=== PATIENT | male | born 1970 | race Caucasian/White ===

== ENCOUNTER 2024-02-20 16:02 | Outpatient (REF) | payer BC, SELFPAY ==
[2024-02-20 18:27] LABS: Alanine Aminotransferase 59 U/L (0-40); Albumin Level 3.6 g/dL (3.5-5.0); Alkaline Phosphatase 134 U/L (39-117); Anion Gap 12 (12-20); Aspartate Amino Transferase 62 U/L (5-37); Blood Urea Nitrogen 18 mg/dL (9-16); Calcium 9.4 mg/dL (8.4-10.2); Carbon Dioxide 23 mmol/L (22-29); Chloride 107 mmol/L (96-108); Cholesterol 123 mg/dL (<200); Estimated Glomerular Filt Rate > 60; Glucose Random 98 mg/dL (60-115); HDL Cholesterol 32 mg/dL (>40); LDL Cholesterol Calculated 80 mg/dL (<100); Potassium 4.3 mmol/L (3.3-5.1); Sodium 138 mmol/L (135-145); Total Protein 7.6 g/dL (6.5-8.0); Triglycerides 57 mg/dL (<150)
[2024-02-20 18:47] LABS: TSH reflex Free T4 3.66 uIU/mL (0.32-4.0)
[2024-02-21 08:20] LABS: HIV AB/AG Nonreactive (Nonreactive); HIV Num 1 0.05 S/CO (0.00-0.99); ~HepC Num1 0.31 S/CO (0.00-0.79); ~Hepatitis C Antibody Nonreactive (Nonreactive)
== END 2024-02-20 16:03 | disposition home or self-care (01) ==
LOC: HO.CHCLDS 16:02
PROVIDERS: Visit Provider Internal Medicine
DX: I10 Essential (primary) hypertension (principal)
CPT/HCPCS: 36415; 80053; 80061; 84443; 86803; 87389

== ENCOUNTER 2024-05-29 13:51 | Outpatient (AMB) | payer BC, SELFPAY ==
--- NOTE | 2024-05-29 14:10 | A.OFFVIS_ITS ---
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 Per prior discharge summary from [facility] in 2023, it seems that he has a history of alcohol excess, congestive heart failure with reduced ejection fraction and stated ejection fraction of 20-30%. Also with atrial fibrillation but noncompliant with Eliquis. He states that he drinks a six-pack once a week or so. Denies any drug use. With regard to other medications for cardiomyopathy, unclear what he actually takes as he states he takes them intermittently. He has been referred for a new patient evaluation. Patient states that he generally feels well. With activity, he may get short of breath. Nonspecific weakness at times. No clear-cut angina. [facility] Medical History (Updated 05/29/24 @ 14:49 by Gavin Akers MD) Atrial fibrillation with rapid ventricular response Cardiomyopathy Family History (Updated 05/29/24 @ 14:34 by Gavin Akers MD) Father No problems noted. Mother No problems noted. Social History (Updated 05/29/24 @ 14:33 by Gavin Akers MD) Alcohol intake: current Comment: 6 pack/one day/week Patient Tobacco Use Status: Never used Tobacco Review of Systems Const Denies chills, Denies fatigue, Denies fever(s), Denies frequent falls, Denies weakness, Denies weight gain and Denies weight loss ENT Denies dizziness Card Denies chest pain, Denies leg edema, Denies lightheadedness, Denies palpitations, Reports dyspnea, Reports dyspnea on exertion and Denies orthopnea Resp Denies cough, Reports dyspnea and Reports dyspnea on exertion GI Denies bloating and Denies change in bowel habits Musc Denies muscle weakness, Denies numbness and Denies tingling Neuro Denies dizziness, Denies frequent falls, Denies numbness, Denies tingling and Denies weakness Endo Denies fatigue and Denies palpitations Physical Exam Vital Signs: Last Vital Signs Pulse 149 H 05/29/24 14:13 BP 140/90 H 05/29/24 14:13 BMI result Body Mass Index 29.2 Const General: comfortable and no acute distress Orientation/consciousness: patient oriented x3 HEENT Other: Unremarkable Head: Yes normal to inspection Neck Neck: Yes normal visual inspection Chest Chest palpation & inspection: normal inspection of the chest Resp Auscultation: clear to auscultation bilaterally Cardio Palpation: normal PMI Heart sounds: S1 normal heart sound present, S2 normal heart sound present, no gallops, no murmurs and no rubs GI Palpation (GI): Soft to palpation Back/Spine/Pelvis Other: unremarkable Skin General skin exam: no rashes or lesions noted Neuro General: patient oriented x3 Extrem General: Yes normal to inspection Psych Mental Status: mental status grossly normal Office Procedures EKG Details: EKG with atrial fibrillation at a rate of 149/Min; rightward axis 08187-[id number], Complete Assessment & Plan Assessment & Plan (1) Atrial fibrillation with rapid ventricular response: Code(s): I48.91 - Unspecified atrial fibrillation Category: Medical Plan: Listed to be on metoprolol ER 100 mg daily with Eliamado. However, does not seem that he takes these every day. Clinically, no overt symptoms but high likelihood of decompensation. Recommend ER evaluation. May try intravenous beta-blockers +/-digoxin. Candidacy for BRIE/cardioversion to be decided-mainly due to question of compliance. (2) Cardiomyopathy: Code(s): I42.9 - Cardiomyopathy, unspecified Category: Medical Plan: In the [facility] echocardiogram, LVEF is 20-30%. No overt heart failure symptoms or signs. For meds, on metoprolol, Entresto, Farxiga. Again unclear compliance. Plan Referred to ER for heart rate management. Coding Level of Care Code New Pt Level 5 (17895) Complex EM visit Add On G2211 Diagnoses Atrial fibrillation with rapid ventricular response I48.91 Cardiomyopathy I42.9 CPT Codes EKG - CPT: 90083-[id number], Complete ([id number])
--- OUTSIDE RECORDS SUMMARY | 2024-05-29 14:11 | XMS_ITS | Encounter Summary ---
Author Organization [facility] [facility] [employer] Address [address] [facility] 7 [place] [address] Care Team Providers Care Doffer Name Role Phone Dinesh Hernandez MD Primary Care Prov ider Reason for Visit * Reason Onset Date Comments Chart Prep 05/21/2024 Encounter Details Date Type Department Care Team ([facility] st Contact Info) Description 05/21/2024 Telephone [facility] MED & PEDS [address] [place], [place] [phone] Dinesh Hernandez MD [address] [place] [address] Chart Prep Social History Tobacco Use Types Packs/Day Years Used Date Smoking Tobacco: Never Smokeless Tobacco: Never Alcohol Use Standard Drinks/Week Comments Not Currently 0 (1 standard drink = 0.6 oz pur e alcohol) Depression Answer Date Recorded Patient Health Questionnaire-9 Score 0 2024 Patient Health Questionnaire-9 Score 0 2024 Last PHQ-9: Questionnaire Data Not on file 1 05/19/2023 Housing Stability Answer Date Recorded What is your housing situation today? I have kulwant nassar [address] you li ve. Do you have problems with any of the following? None of the above 2024 Food Insecurity Answer Date Recorded Within the past 12 months, y ou worried that your food would run out before you got money to buy more: Never True 2024 Within the past 12 months,th e food you bought just didn't last and you didn't have enough money to get more: Never True 12/2023 Transportation Answer Date Recorded In the past 12 months, has l ack of transportation kept you from medical appts, meetings, work or from getting things needed for daily living? No 2024 Utilities Answer Date Recorded In the past 12 months, has t he electric, gas, oil or water company threatened to shut off services in your home? No 2024 Depression Answer Date Recorded Patient Health Questionnaire-2 Score 0 2024 Internet Access Answer Date Recorded Internet Access Q1 Yes 2024 Internet Access Q2 Not on file 2024 Sex and Gender Information Value Date Recorded Sex Assigned at Male 02/07/2022 10:18 AM EDT Legal Sex Male 10:18 AM EDT Gender Identity Male 02/07/2022 10:18 AM EDT Sexual Orientation Straight 02/07/2022 10 :18 AM EDT documented as of this encounter Miscellaneous Notes * Telephone Encounter - Hoa Dukes [place] - 05/21/2024 4:24 PM EST Chart Prep Labs: done Images: not applicable Vaccines due: yes Referrals: n/a Screenings: colonoscopy Overdue care gaps: Oral Health, disability screening documented in this encounter Plan of Treatment Not on file documented as of this encounter Visit Diagnoses Not on filedocumented in this encounter Additional Health Concerns Assessment Noted Time PHQ-9 Depression Total Score: 0 03/18/20 9:28 AM EST documented as of this encounter Care Teams Doffer Relationship Specialty Start Date End Date Dinesh Hernandez MD [address] [place] [phone] PCP - General Internal Medicine 01/23/24 documented as of this encounter
--- OUTSIDE RECORDS SUMMARY | 2024-05-29 14:11 | XMS_ITS | Encounter Summary ---
Author Organization [employer] Address [address] [facility] 7 [place] [address] Care Team Providers Care Messenger Copy Name Role Phone Dinesh Hernandez MD Primary Care Prov ider Reason for Visit * Reason Onset Date Comments No Show 05/22/2024 Encounter Details Date Type Department Care Team ([facility] st Contact Info) Description 05/22/2024 Telephone [facility] CH[facility] MED & PEDS [address] [place], [place] [phone] Dinesh Hernandez MD [address] [place] [address] No Show Social History Tobacco Use Types Packs/Day Years [...] encounter Miscellaneous Notes * Telephone Encounter - Miguelina Urena - 05/22/2024 3:31 PM EST No Show 05/22/24 for fu bp documented in this encounter Plan of Treatment Not on file documented as of this encounter Visit Diagnoses Not on filedocumented in this encounter Additional Health Concerns Assessment Noted Time PHQ-9 Depression Total Score: 0 03/18/20 9:28 AM EST documented as of this encounter Care Teams Messenger Copy Relationship Specialty Start Date End Date Dinesh Hernandez MD [address] [place] [phone] PCP - General Internal Medicine 01/23/24 documented as of this encounter
--- OUTSIDE RECORDS SUMMARY | 2024-05-29 14:11 | XMS_ITS | Clinical Summary ---
Author Organization [employer] Address [address] [facility] [address] [place] [address] Care Team Providers Care Electronic Technician Name Role Phone Dinesh Hernandez MD Primary Care Prov ider Allergies Active Allergy Reactions Criticality Noted Date Comments Shrimp Flavor Agent (Non-Screening) Rash Low 01/31/2024 Medications Blood Pressure kit 1 kit Once per day. 1 kit 02/01/2024 Active apixaban (Eliquis) 5 MG tablet Take 1 tablet (5 mg) by mouth 2 times daily. 60 tablet 3 02/01/2024 Active dapagliflozin (Farxiga) 10 MGIndications:C hronic systolic congestive heart failure (CMS/HCC) Take 1 tablet (10 mg) by mouth Once per day. 30 tablet 11 02/01/2024 5 Active furosemide (Lasix) 40 MG tablet Take 1 tablet (40 mg) by mouth Once per day. 90 tablet 3 02/20/2024 5 Active metoprolol succinate XL (Toprol XL) 100 MG 24 hr tablet Take 0.5 tablets (50 mg) by mouth Once per day. Do not crush or chew. 15 tablet 11 02/20/2024 5 Active sacubitril-vals teresa (Entresto) 49-51 MG tabletIndicatio ns:Chronic systolic congestive heart failure (CMS/HCC) Take 1 tablet by mouth 2 times daily. 60 tablet 11 2024 5 Active Active Problems Problem Noted Date Diagnosed Date Encounter for adult wellness visit 2024 Assessment & Plan (2024 12:48 PM EST): Plan Dietary counseling Alcohol use counseling Referral to vision and dentist Follow up on manager of customer billing and neurologist Covid and Pneumococcal vaccine Encounter for immunization 2024 Dietary counseling 2024 Assessment & Plan (2024 12:26 PM EST): Eat 3 meals a day, especially breakfast Eat healthy and focus on healthyfood choices daily fruits, vegetables, grains, low fat milk, low carbohydrate and fat Avoid salt intake including cold cuts Maintain healthy weight as this will lower your risk for many health problems. Stop taking alcohol Permanent atrial fibrillation 02/02/2024 Assessment & Plan (02/02/2024 12:09 AM EDT): Pateint was not taking eliquis, reviewed risk, will send renewal to [facility] pharm Alcohol use disorder 02/02/2024 Tremors of nervous system 02/02/2024 Assessment & Plan (02/02/2024 12:00 AM EDT): Will refer to neurology Chronic systolic congestive heart failure 2023 Assessment & Plan (2024 12:35 PM EST): Bilateral lower extremities pitting edema with discoloration Dry cough when lying down Plan Increase dose of sacubitril-Valsartan 49-51 Follow up appointment with manager of customer billing Dietary counseling Patient counseling on CHF Assessment & Plan (02/20/2024 6:40 PM EST): Lower extremity edema, clear to auscultation bilaterally, no shortness of breath, will increase furosemide to 40mg, follow up with cardiology, er precautions discussed Assessment & Plan (02/02/2024 12:05 AM EDT): Renewed medication, will refer to cardiology, ef 20-30%, needs medical optimization may eventually need ICD Encounter for medical examination to establish c are 01/31/2024 Assessment & Plan (01/31/2024 12:57 AM EDT): Last pcp visit 3 years ago No recent er visit Hospitalization: - Pmhx: htn Psh: - All:shrimps Meds:- Primary hypertension 01/31/2024 Assessment & Plan (02/20/2024 6:39 PM EST): Uncontrolled, will increase furosemide to 40mg, he is also not taking metoprolol 100mg, refers is getting dizzy, will decrease dose to 50mg, follow up in 1 month Assessment & Plan (02/01/2024 11:56 PM EDT): He is not taking his medications, he should be on entresto, metoprolol and furosemide, reviewed importance of treatment adherance Assessment & Plan (01/31/2024 1:02 AM EDT): Patient is a poor historian, upon chart review he was taking entresto, metoprolol, apixaban, chlorthalidone, farxiga, furosemide. He is currently off any medication for more than 2 months, has not followed with manager of customer billing, not clear why he is on those medication, will request er/hospital discharge, apperently they were started back on august Encounters Date Type Department Care Team Description 05/22/2024 Telephone [facility] MED & PEDS [address] [place] [phone] Dinesh Hernandez MD No Show 05/21/2024 Telephone [facility] MED & PEDS [address] [place] [address] Dinesh Hernandez MD Chart Prep 03/26/2024 Telephone [facility] MED & PEDS [address] [place] [address] Dinesh Hernandez MD Appointment Request 2024 9:00 AM EST Office Visit [facility] MED & PEDS [address] [place] [address] Dinesh Hernandez MD Encounter for adult wellness visit (Primary Dx); Encounter for immunization; Chronic systolic congestive heart failure ([facility]/HCC); Dietary counseling 2024 Travel 03/04/2024 Patient Outreach [facility] MED & PEDS [address] [place] [address] Dinesh Hernandez MD Pre-visit Planning (SDOH unable to reach LVM) 02/27/2024 Telephone [facility] [address] [place], [place] [phone] Dinesh Hernandez MD from Last 3 Months Immunizations Name Administration Dates Next Due Pfizer Covid-19 Vaccine 12+ 2024 Pneumococcal Conjugate PCV 20 2024 Family History Medical History Relation Name Comments Hypertension Father Hypertension Mother Cancer Neg Hx Relation Name Status Comments Father Mother Social History Tobacco Use Types Packs/Day Years Used Date Smoking Tobacco: Never Smokeless Tobacco: Never Tobacco Cessation:Counseling Given: Not Answered Alcohol Use Standard Drinks/Week Comments Not Currently [...] Orientation Straight 02/07/2022 10 :18 AM EDT Last Filed Vital Signs Vital Sign Reading Time Taken Comments Blood Pressure 152/84 2024 9:27 AM EST Pulse 88 2024 9:27 AM EST Temperature 37.1 ??C (98.7 ??F) 2024 9:27 AM ES T Respiratory Rate 20 2024 9:27 AM EST Oxygen Saturation 96% 02/01/2024 3:20 PM EDT Inhaled Oxygen Concentration - - Weight 90.7 kg (200 lb) 2024 9:27 AM EST Height 182.9 cm (6') 2024 9:27 AM EST Body Mass Index 27.12 2024 9:27 AM EST Plan of Treatment Health Maintenance Due Date Last Done Comments CT Colonography 1970 Colonoscopy 1970 Colorectal Cancer Screening 1970 FIT DNA/Cologuard 1970 FIT 1970 FOBT 1970 Sigmoidoscopy 1970 DTaP/Tdap/Td Vaccines (1 - Tdap) 1989 Hepatitis B Vaccines (1 of 3 - 19+ 3-dose series) 1989 Zoster Vaccines (1 of 2) 2020 Influenza Vaccine (#1) 2023 Alcohol/Substance Use Screening 2025 2024 Depression Screening 2025 2024, 03/18/20 24 SDOH Screening 2025 2024 Tobacco Screening 2025 2024 Lipid Panel 02/19/2029 02/20/2024 RSV Patients and Patients Aged 60 years or older (1 - 1-dose 75+ series) 2045 HIV Screening Completed 02/20/2024 Hepatitis C Screening Completed 02/20/2024 COVID-19 Vaccine Completed 2024, , 08/26/2020, Additional history exists Pneumococcal Vaccine: 50+ Years Completed 2024 HIB Vaccines Aged Out No longer eligi ble based on patient's age to complete this topic HPV Vaccines Aged Out No longer eligi ble based on patient's age to complete this topic Hepatitis A Vaccines Aged Out No long er eligible based on patient's age to complete this topic IPV Vaccines Aged Out No longer eligi ble based on patient's age to complete this topic Meningococcal Vaccine Aged Out No divya matt eligible based on patient's age to complete this topic RSV under 20 months Aged Out No longe r eligible based on patient's age to complete this topic Rotavirus Vaccines Aged Out No longer eligible based on patient's age to complete this topic Procedures Procedure Name Priority Date/Time Associated Diagnosis Comments AMB REFERRAL TO NEUROLOGY Routine 03/27/2024 Tremors of nervous system HEPATITIS C AB W/REFL TO HCV RNA, QN, PCR Routine 02/20/2024 4:04 PM EST Primary hypertension HIV 1/2 ANTIGEN/ANTIBODY, FOURTH GENERATION W/RFL Routine 02/20/2024 4:04 PM EST Primary hypertension LIPID PANEL, STANDARD Routine 02/20/2024 4:04 PM EST Primary hypertension from Last 3 Months or Most Recently Relevant to Health Maintenance Results * Referral to Neurology (03/27/2024) Dinesh Engel MD OUTPATIENT REFERRA L ORDERABLES Final Result * Hepatitis C Antibody with Reflex to HCV, RNA, Quantitative, Real-Time PCR (02/20/2024 4:04 PM EST) Hepatitis C Antibody Nonreactive Nonreactive [facility] Comment:Antibodies to HCV no t detected; does not exclude early acuteHCV infection. Blood Venous blood specimen / Unknown 02/20/2024 4:04 PM EST 02/20/2024 5:56 PM EST Dinesh Engel MD LAB BLOOD ORDERABL ES Final Result [facility] [address] [place] [phone] * HIV-1/2 Antigen and Antibodies, Fourth Generation, with Reflexes (02/20/2024 4:04 PM EST) HIV AB/AG Nonreactive Nonreactive [facility] Comment:HIV-1 p24 Ag and/or HIV-1/HIV-2 Ab not detected.A test result that is nonreactive does not exclude thepossibility of exposure to or infection with HIV-1 and/orHIV-2. Nonreactive results in this assay for individualswith prior exposure to HIV-1 and/or HIV-2 may be due toantigen and antibody levels that are below the limit ofdetection of this assay.The Digifeye HIV Ag/Ab Combo assay result andsupplemental assay results should be interpreted inconjunction with the patient's clinical presentation,history and other laboratory results. If the results areinconsistent with clinical evidence, additional testing issuggested to confirm the result. Blood Venous blood specimen / Unknown 02/20/2024 4:04 PM EST 02/20/2024 5:56 PM EST us Dinesh Engel MD LAB BLOOD ORDERABL ES Final Result [facility] [address] [place] [phone] * (ABNORMAL) Lipid Panel, Standard (02/20/2024 4:04 PM EST) Triglycerides 57 <150 mg/dL [facility] Comment:Desirable Triglyceri de: less than 150 mg/dLBorderline High Triglyceride 150-199 mg/dLHigh Triglyceride: 200-499 mg/dLVery High Triglyceride: greater than or equal to 5OO mg/dL Cholesterol 123 <200 mg/dL [facility] Comment:Desirable Cholestero l: less than 200 mg/dLBorderline High Cholesterol: 200-239 mg/dLHigh Cholesterol: greater than 239 mg/dL LDL Cholesterol Calculated 80 <100 mg/dL [facility] Comment:Desirable LDL: less than 100 mg/dLNear Optimal/Above Optimal LDL: 110- 129 mg/dLBorderline High LDL: 130-159 mg/dLHigh LDL: 160-189 mg/dLVery High LDL: greater than or equal to 190 mg/dL HDL Cholesterol 32(L) >40 mg/dL [facility] Comment:Desirable HDL: great er than 40 mg/dL Note: This HDL assay may give artificially low results in patients with liver disease. Blood Venous blood specimen / Unknown 02/20/2024 4:04 PM EST 02/20/2024 5:56 PM EST us Dinesh Engel MD LAB BLOOD ORDERABL ES Final Result [facility] [address] [place] [phone] from Last 3 Months or Most Recently Relevant to Health Maintenance Insurance [facility] Care Teams Electronic Technician Relationship Specialty Start Date End Date Dinesh Hernandez MD [address] [place] [phone] PCP - General Internal Medicine 01/23/24
[2024-05-29 14:13] VITALS: BP 140/90; PULSE 149; BMI 29.2
== END 2024-05-29 14:59 | disposition home or self-care (01) ==
PROVIDERS: PCP Internal Medicine; Visit Provider Internal Medicine
DX: I48.91 Unspecified atrial fibrillation (principal); I42.9 Cardiomyopathy, unspecified
CPT/HCPCS: 93010; 99204

== ENCOUNTER 2024-05-29 14:44 | Inpatient (IN) | payer BC, SELFPAY ==
[2024-05-29] VITALS (8 sets, daily range): BP systolic 122–138; BP diastolic 86–100; PULSE 84–173; RESP 16–20; TEMP 36.3–36.8; O2SAT 91–98; BMI 27.4
--- NOTE | ~2024-05-29 | XR_ITS ---
EXAMINATION: XR CHEST CLINICAL INFORMATION: sob, afib rvr COMPARISON: None available. TECHNIQUE: 2 views of the chest were obtained. FINDINGS: Mild cardiac enlargement. Mediastinal and hilar contours are normal. Lungs demonstrate blunting of the left costophrenic angle, suggesting either subtle infiltrate or effusion. The right lung is clear. There is no pneumothorax or pleural effusion. There is no focal osseous or soft tissue abnormality. XR/XR chest 2V IMPRESSION: 1. Blunting of left costophrenic angle, either representing a subtle infiltrate or small effusion. Lungs otherwise clear. Electronically signed by: Derick Ty MD 05/29/2024 03:26 PM [facility]
--- NOTE | 2024-05-29 14:49 | ECG_ITS ---
Test Reason : A-FIB Blood Pressure : */* mmHG Vent. Rate : 150 BPM Atrial Rate : * BPM P-R Int : * ms QRS Dur : 86 ms QT Int : 278 ms P-R-T Axes : * 86 54 degrees QTcB Int : 439 ms Atrial fibrillation with rapid ventricular response Abnormal ECG No previous ECGs available Referred By: Gill Fontana Electronically Signed By: KARLA WONG
--- NOTE | 2024-05-29 14:49 | ED.GENADULT ---
HPI - General Adult General Chief complaint: Arrhythmia/Palpitations Stated complaint: Rapid Heartrate, Heart Failure Time Seen by Provider: 05/29/24 14:49 Source: patient, RN notes reviewed and old records reviewed History of Present Illness ED Provider: Gill Fontana PA-C HPI narrative: 54-year-old male with a past medical history of AFib with RVR on Eliquis (noncompliant), cardiomyopathy, CHF with LVEF 20-30%, ETOH abuse, presenting to ED from Cardiology outpatient office due to AFib with RVR. Patient reports chronic noncompliance with medications, states only takes as needed. Admits to LE edema and dyspnea on exertion/with talking. Denies fever, chills, cough, travel Related Data Home Medications ?Medication ?Instructions ?Recorded ?Confirmed apixaban 5 mg tablet (Eliquis) 5 mg PO BID 05/29/24 05/29/24 clonazepam 0.5 mg tablet 0.5 mg PO BEDTIME 05/29/24 05/29/24 dapagliflozin propanediol 10 mg 10 mg PO DAILY 05/29/24 05/29/24 tablet (Farxiga) furosemide 40 mg tablet 40 mg PO DAILY 05/29/24 05/29/24 metoprolol succinate 100 mg 100 mg PO DAILY 05/29/24 05/29/24 tablet,extended release 24 hr sacubitril 24 mg-valsartan 26 mg 1 tab PO BID 05/29/24 05/29/24 tablet (Entresto) Allergies Allergy/AdvReac Type Severity Reaction Status Date / Time No Known Allergies Allergy Verified 05/29/24 15:18 Review of Systems Review of Systems: Yes all other systems are reviewed and are negative Constitutional: Constitutional: Reports as per [facility] Past Medical History Attestation statement: The following information was validated with the patient. Source: old records reviewed Medical History Atrial fibrillation with rapid ventricular response Cardiomyopathy Family History Family History Father No problems noted. Mother No problems noted. Social History Social History Alcohol intake: current Alcohol intake frequency: a few times a week Comment: 6 pack/one day/week Patient Tobacco Use Status: Never used Tobacco Smoked in Last 30 Days: No Use of substances other than those prescribed or required for medical reasons: No Advance Directives: No Advance Directives Information Provided: No Physical Exam ED Vital Signs: Vital Signs - 24 hr 05/29/24 15:16 05/29/24 15:35 05/29/24 16:10 Temperature 97.3 F Pulse Rate 173 H 115 H 109 H Respiratory Rate 16 18 18 Blood Pressure 138/100 H 122/93 H 122/88 Pulse Oximetry 98 97 96 Oxygen Delivery Method Room Air Room Air Room Air BMI result Body Mass Index 27.4 Const General: cooperative, healthy appearing and no acute distress Orientation/consciousness: patient oriented x3 Limitations: no limitations HENMT Head: Yes normal to inspection and Yes atraumatic Ears: hearing grossly normal bilaterally General nose exam: Normal external nose present Face and sinus: Yes normal facial exam Eyes General: appearance normal, both eyes and all related structures EOM: EOMs intact bilaterally Neck Neck: Yes normal visual inspection and Yes no meningeal signs Resp Effort & Inspection: normal respiratory effort and no respiratory distress Auscultation: clear to auscultation bilaterally Cardio Rate: tachycardic Rhythm: abnormal rhythm Heart sounds: S1 normal heart sound present and S2 normal heart sound present GI Inspection: Yes normal to inspection Palpation (GI): Soft to palpation, nontender, no guarding and not rigid General: Yes no CVA tenderness Back/Spine/Pelvis Back: no CVA tenderness Skin Rashes: no rashes Wounds: no wounds Neuro Other: Mildly tremulous. No tongue fasciculations General: patient oriented x3, tone normal and no meningeal signs Cranial nerves: Yes CN's II-XII intact bilaterally Gait exam (Neuro): Normal gait present Extrem Other: 2+ bilateral LE pitting edema Course Course Course Narrative: -HR improved after IV and p.o. metoprolol >> we will give additional 5 mg IV metoprolol if blood pressure can handle it XR chest 2V IMPRESSION: 1. Blunting of left costophrenic angle, either representing a subtle infiltrate or small effusion. Lungs otherwise clear > likely effusion rather than infiltrate -chronically elevated bilirubin and AST/alk phos likely from chronic ETOH abuse >1619--heart rate improved to 111 > consulted Dr. Akers who agrees with plan of admission. -1619--troponin 26.1 > will obtain 3 hour repeat. BNP 603 >> will give dose of IV Lasix and digoxin and plan for admission Medications Administered Discontinued Medications Generic Name Dose Route Start Last Admin Trade Name Rohith PRN Reason Stop Dose Admin Lorazepam 1 mg 05/29/24 15:13 05/29/24 15:21 Lorazepam 1 Mg Tablet PO 05/29/24 15:14 1 mg ONCE ONE Administration Metoprolol Tartrate 5 mg 05/29/24 14:59 05/29/24 15:21 Metoprolol Tartrate 5 Mg/5 Ml Vial IVPUSH 05/29/24 15:00 5 mg ONCE ONE Administration Protocol Metoprolol Tartrate 25 mg 05/29/24 14:59 05/29/24 15:21 Metoprolol Tartrate 25 Mg Tablet PO 05/29/24 15:00 25 mg ONCE ONE Administration Protocol Metoprolol Tartrate 5 mg 05/29/24 15:44 05/29/24 15:57 Metoprolol Tartrate 5 Mg/5 Ml Vial IVPUSH 05/29/24 15:45 5 mg ONCE ONE Administration Protocol Medical Decision Making Medical Decision Making MDM Narrative: 54-year-old male with a past medical history of AFib with RVR on Eliquis (noncompliant), cardiomyopathy, CHF with LVEF 20-30%, ETOH abuse, presenting to ED from Cardiology outpatient office due to AFib with RVR. On exam tachycardic, EKG showing AFib with RVR at a rate of 150. Bilateral LE pitting edema appreciated, lungs CTA, no respiratory distress. Concern for AFib with RVR with medication noncompliance and CHF vs ACS. Low suspicion for PE/DVT. Patient mildly tremulous concern for ETOH abuse/early withdrawal. Plan: EKG, labs, CXR, viral testing, IV beta-blockers, +/-digoxin, +/-IV Lasix, p.o. Ativan Please refer to course for remaining clinical decision making, interpretation of labs/imaging results, and discussions with consultants and/or family members. Differential Diagnosis Differential Diagnoses: The differential diagnosis associated with the presentation includes As above Admission/Observation Consideration of admission/observation: Escalation of care including admission/observation considered Consult Healthcare Provider Management of the patient was discussed with: Hospitalist and Show Horse Driver Lab Data [facility] Lab Attestation statement: I reviewed the patient's lab results. 05/29/24 15:10 05/29/24 15:10 Labs: Lab Results 05/29/24 Range/Units 15:10 WBC 6.3 (4.8-10.8) X10*3/uL RBC 5.00 (4.60-5.80) X10*6/uL Hgb 15.1 (14.0-18.0) g/dl Hct 44.2 (42.0-52.0) % MCV 88.4 (80.0-98.0) fL MCH 30.2 (27.0-33.0) pg MCHC 34.2 (31.0-36.0) g/dl RDW 17.9 H (11.0-16.0) % Plt Count 180 (160-400) X10*3/uL MPV 10.4 (9.4-12.4) fL Immature Gran % (Auto) 0.3 (0.0-0.4) % Neut % (Auto) 66.9 (45-73) % Lymph % (Auto) 13.3 L (20-40) % [place] % (Auto) 13.1 H (2-11) % Eos % (Auto) 5.6 H (0-4) % Baso % (Auto) 0.8 (0-2) % Lymph # (Auto) 0.8 L (1.2-4.9) X10*3/uL [place] # (Auto) 0.8 (0.1-1.2) X10*3/uL Eos # (Auto) 0.4 (0.0-0.4) X10*3/uL Baso # (Auto) 0.1 (0.0-0.2) X10*3/uL Abs Immat Gran (auto) 0.02 (0.00-0.03) X10*3/uL Absolute Neuts (auto) 4.2 (2.0-8.3) x10*3/uL Absolute Nucleated RBC 0.000 (0.0-0.012) X10*3/uL Nucleated RBC % (auto) 0.0 (0.0-0.2) /100WBC PT 14.4 H (10.9-12.4) SEC INR 1.2 H (0.9-1.1) Sodium 140 (135-145) mmol/L Potassium 4.6 (3.3-5.1) mmol/L Chloride 109 H (96-108) mmol/L Carbon Dioxide 23 (22-29) mmol/L Anion Gap 13 (12-20) BUN 17 H (9-16) mg/dL Creatinine 0.93 (0.5-1.4) mg/dL Estim Creat Clear Calc 87.8 Estimated GFR > 60 Random Glucose 64 (60-115) mg/dL Calcium 9.0 (8.4-10.2) mg/dL Magnesium 1.9 (1.6-2.6) mg/dL Total Bilirubin 2.4 H (0.0-1.0) mg/dL Direct Bilirubin 1.2 H (0.0-0.5) mg/dL AST 48 H (5-37) U/L ALT 37 (0-40) U/L Alkaline Phosphatase 165 H (39-117) U/L Troponin I High Sens 26.1 (<3.5-35.0) ng/L B-Natriuretic Peptide 603 H (<100) pg/mL Total Protein 8.3 H (6.5-8.0) g/dL Albumin 3.7 (3.5-5.0) g/dL Independent Interpretation I performed an independent interpretation of an: EKG (My interpretation EKG AFib with RVR at a rate of 150. QRS 86. QTC 439. No STEMI.) Radiology Impression Discussion of test interpretation with radiology: I have reviewed the radiologist's reading. External Record Review External record reviewed: Inpatient record, Office record, Outpatient record, Prior outpatient labs, Prior outpatient radiology, Primary care record and Outside ED record Tests considered The following testing was considered but not selected: As above Chronic Conditions Patient?s care impacted by: Other (AFib with RVR, CHF) Social Determinants Patient?s care significantly limited by Social Determinants of Health including: Alcoholism and drug addiction in family and Problems related to primary support group Critical Care Time Critical Care Time Critical Care Time: Yes Total Critical Care Time: 40 Attestation: I have personally provided critical care time exclusive of time spent on separately billable procedures. Time includes review of lab data, radiology results, discussion with consultants, and monitoring for potential decompensation. Intervention performed as documented. Discharge Plan Discharge Clinical Impression: Atrial fibrillation with rapid ventricular response, Congestive heart failure Patient Disposition: Admitted As Inpatient Print Language: Czech
[2024-05-29] MEDS: LORazepam 1 MG TABLET PO (15:21)
[2024-05-29] MEDS: Metoprolol Tartrate 25 MG TABLET PO ×3 (15:21→23:27)
[2024-05-29] MEDS: Metoprolol Tartrate 5 MG/5 ML VIAL IVPUSH ×2 (15:21→15:57)
[2024-05-29 15:22] LABS: MANUAL DIFF FLAG NO
[2024-05-29 15:25] LABS: Basophils Absolute Auto 0.1 X10*3/uL (0.0-0.2); Basophils Percent Auto 0.8 % (0-2); Eosinophils Absolute Auto 0.4 X10*3/uL (0.0-0.4); Eosinophils Percent Auto 5.6 % (0-4); Hematocrit 44.2 % (42.0-52.0); Hemoglobin 15.1 g/dl (14.0-18.0); Imm Gran Abs Auto 0.02 X10*3/uL (0.00-0.03); Imm Gran Pct Auto 0.3 % (0.0-0.4); Lymphocytes Absolute Auto 0.8 X10*3/uL (1.2-4.9); Lymphocytes Percent Auto 13.3 % (20-40); Mean Corpuscular HGB Conc 34.2 g/dl (31.0-36.0); Mean Corpuscular Hemoglobin 30.2 pg (27.0-33.0); Mean Corpuscular Volume 88.4 fL (80.0-98.0); Mean Platelet Volume 10.4 fL (9.4-12.4); Monocytes Absolute Auto 0.8 X10*3/uL (0.1-1.2); Monocytes Percent Auto 13.1 % (2-11); Neutrophils Absolute Auto 4.2 x10*3/uL (2.0-8.3); Neutrophils Percent Auto 66.9 % (45-73); Platelet Count 180 X10*3/uL (160-400); Red Cell Distribution Width 17.9 % (11.0-16.0); White Blood Count 6.3 X10*3/uL (4.8-10.8)
[2024-05-29 15:45] LABS: Alanine Aminotransferase 37 U/L (0-40); Albumin Level 3.7 g/dL (3.5-5.0); Alkaline Phosphatase 165 U/L (39-117); Anion Gap 13 (12-20); Aspartate Amino Transferase 48 U/L (5-37); Bilirubin Direct 1.2 mg/dL (0.0-0.5); Bilirubin Total 2.4 mg/dL (0.0-1.0); Blood Urea Nitrogen 17 mg/dL (9-16); Carbon Dioxide 23 mmol/L (22-29); Chloride 109 mmol/L (96-108); Creatinine Clr Calc Pharmacy 87.8; Estimated Glomerular Filt Rate > 60; Glucose Random 64 mg/dL (60-115); Magnesium 1.9 mg/dL (1.6-2.6); Potassium 4.6 mmol/L (3.3-5.1); Sodium 140 mmol/L (135-145); Total Protein 8.3 g/dL (6.5-8.0)
[2024-05-29 15:47] LABS: B Type Natriuretic Peptide 603 pg/mL (<100)
[2024-05-29 15:48] LABS: INTERNATIONAL NORM RATIO 1.2 (0.9-1.1); Prothrombin Time 14.4 SEC (10.9-12.4)
[2024-05-29 15:49] LABS: Troponin-I High Sensitivity 26.1 ng/L (<3.5-35.0)
--- OUTSIDE RECORDS SUMMARY | 2024-05-29 15:57 | XMS_ITS | Clinical Summary ---
Author Organization [employer] Address [address] [facility] [address] [place] [address] Care Team Providers Care Molder Automobile Carpets Name Role Phone Dinesh Hernandez MD Primary [...] to vision and dentist Follow up on php wordpress developer and neurologist Covid and Pneumococcal vaccine Encounter [...] eliquis, reviewed risk, will send renewal to [facility] pharm Alcohol use disorder 02/02/2024 Tremors of nervous system 02/02/2024 Assessment & Plan (02/02/2024 12:00 AM EDT): Will refer to neurology Chronic systolic congestive heart failure 2023 Assessment & Plan (2024 12:35 PM EST): Bilateral lower extremities pitting edema with discoloration Dry cough when lying down Plan Increase dose of sacubitril-Valsartan 49-51 Follow up appointment with php wordpress developer Dietary counseling Patient counseling on CHF Assessment [...] than 2 months, has not followed with php wordpress developer, not clear why he is on those medication, will request er/hospital discharge, apperently they were started back on august Encounters Date Type Department Care Team Description 05/22/2024 Telephone [facility] [address] [place] [address] Dinesh Hernandez MD No Show 05/21/2024 Telephone [facility] [address] [place] [address] Dinesh Hernandez MD Chart Prep 03/26/2024 Telephone [facility] [address] [place] [address] Dinesh Hernandez MD Appointment Request 2024 9:00 AM EST Office Visit [facility] [address] [place] [address] Dinesh Hernandez MD Encounter for adult wellness visit (Primary Dx); Encounter for immunization; Chronic systolic congestive heart failure ([facility]/HCC); Dietary counseling 2024 Travel 03/04/2024 Patient Outreach [facility] [address] [place] [address] Dinesh Hernandez MD Pre-visit Planning (SDOH unable to reach LVM) 02/27/2024 Telephone [facility] Information Management [address] [place], [place] [phone] Dinesh Hernandez MD from Last 3 Months [...] PM EST) Hepatitis C Antibody Nonreactive Nonreactive [facility] Comment:Antibodies to HCV no t detected; does not exclude early acuteHCV infection. Blood Venous blood specimen / Unknown 02/20/2024 4:04 PM EST 02/20/2024 5:56 PM EST Dinesh Engel MD LAB BLOOD ORDERABL ES Final Result [facility] [address] [place] [phone] * HIV-1/2 Antigen and Antibodies, Fourth Generation, with Reflexes (02/20/2024 4:04 PM EST) HIV AB/AG Nonreactive Nonreactive [facility] Comment:HIV-1 p24 Ag and/or HIV-1/HIV-2 Ab not detected.A test result that is nonreactive does not exclude thepossibility of exposure to or infection with HIV-1 and/orHIV-2. Nonreactive results in this assay for individualswith prior exposure to HIV-1 and/or HIV-2 may be due toantigen and antibody levels that are below the limit ofdetection of this assay.The Xuba HIV Ag/Ab Combo assay result andsupplemental assay results should be interpreted inconjunction with the patient's clinical presentation,history and other laboratory results. If the results areinconsistent with clinical evidence, additional testing issuggested to confirm the result. Blood Venous blood specimen / Unknown 02/20/2024 4:04 PM EST 02/20/2024 5:56 PM EST us Dinesh Engel MD LAB BLOOD ORDERABL ES Final Result [facility] [address] [place] [phone] * (ABNORMAL) Lipid Panel, Standard (02/20/2024 4:04 PM EST) Triglycerides 57 <150 mg/dL [facility] Comment:Desirable Triglyceri de: less than 150 mg/dLBorderline High Triglyceride 150-199 mg/dLHigh Triglyceride: 200-499 mg/dLVery High Triglyceride: greater than or equal to 5OO mg/dL Cholesterol 123 <200 mg/dL [facility] Comment:Desirable Cholestero l: less than 200 mg/dLBorderline High Cholesterol: 200-239 mg/dLHigh Cholesterol: greater than 239 mg/dL LDL Cholesterol Calculated 80 <100 mg/dL [facility] Comment:Desirable LDL: less than 100 mg/dLNear Optimal/Above Optimal LDL: 110- 129 mg/dLBorderline High LDL: 130-159 mg/dLHigh LDL: 160-189 mg/dLVery High LDL: greater than or equal to 190 mg/dL HDL Cholesterol 32(L) >40 mg/dL [facility] Comment:Desirable HDL: great er than 40 mg/dL Note: This HDL assay may give artificially low results in patients with liver disease. Blood Venous blood specimen / Unknown 02/20/2024 4:04 PM EST 02/20/2024 5:56 PM EST us Dinesh Engel MD LAB BLOOD ORDERABL ES Final Result [facility] [address] [place] [phone] from Last 3 Months or Most Recently Relevant to Health Maintenance Insurance [facility] HMO Care Teams M[employer]ets Relationship Specialty Start Date End Date Dinesh Hernandez MD [address] [place] [phone] PCP - General Internal Medicine 01/23/24
--- OUTSIDE RECORDS SUMMARY | 2024-05-29 15:57 | XMS_ITS | Encounter Summary ---
Author Organization [employer] Address [address] [facility] [address] [place] [address] Care Team Providers Care Patient Flow Coordinator Name Role Phone Dinesh Hernandez MD Primary Care Prov ider Reason for Visit * Reason Onset Date Comments No Show 05/22/2024 Encounter Details Date Type Department Care Team ([facility] st Contact Info) Description 05/22/2024 Telephone [facility] [address] [place], [place] [phone] Dinesh Hernandez MD [address] [place] [address] No Show Social History Tobacco Use Types [...] documented as of this encounter Care Teams Patient Flow Coordinator Relationship Specialty Start Date End Date Dinesh Hernandez MD [address] [place] [phone] PCP - General Internal Medicine 01/23/24 documented as of this encounter
--- OUTSIDE RECORDS SUMMARY | 2024-05-29 15:57 | XMS_ITS | Encounter Summary ---
Author Organization [employer] Address [address] [facility] [address] [place] [address] Care Team Providers Care Electronic Warfare Technician Name Role Phone Dinesh Hernandez MD Primary Care Prov ider Reason for Visit * Reason Onset Date Comments Chart Prep 05/21/2024 Encounter Details Date Type Department Care Team ([facility] st Contact Info) Description 05/21/2024 Telephone [facility] [address] [place], [place] [phone] Dinesh Hernandez MD [address] [place] [address] Chart Prep Social History Tobacco Use Types [...] documented as of this encounter Care Teams Electronic Warfare Technician Relationship Specialty Start Date End Date Dinesh Hernandez MD [address] [place] [phone] PCP - General Internal Medicine 01/23/24 documented as of this encounter
--- NOTE | 2024-05-29 16:24 | P.HPHOSP_ITS ---
History of Present Illness Date of Service: 05/29/24 Chief Complaint: Dyspnea, Edema A 54 years old male with PMH of CMP w E 20-30%, Alcohol abuse, Afib on Eliquis, sCHF among others who presents to ED with dyspnea, edema and palpitations. The patient reports being non-compliant to his medications. Noted worsening SOB and dyspnea on exertion and speaking. for the last couple of weeks. reporting more persistant palpitations with heart rate in 150s. No chest pain, nausea, vomiting, diarrhea or urinary symptoms. In found to have elevated BNP as CXR showing infiltrates and small effusions. received 2 doses of IV Metoprolol with mild improvement of heart rate from 150s to 110s. Admitted for further eval and treatment. Review of Systems 2 Review of Systems: No fever, chills but has weakness No chest pain, reports palpitations having shortness of breath and edema No abdominal pain, nausea or vomiting No urinary symptoms No any rash or wounds PMFSH Medical History Atrial fibrillation with rapid ventricular response Cardiomyopathy Family History Father No problems noted. Mother No problems noted. Social History Alcohol intake: current Alcohol intake frequency: a few times a week Comment: 6 pack/one day/week Patient Tobacco Use Status: Never used Tobacco Smoked in Last 30 Days: No Use of substances other than those prescribed or required for medical reasons: No Advance Directives: No Advance Directives Information Provided: No Nutrition Risks: No Nutritional Risk service: No Meds Allergies Allergy/AdvReac Type Severity Reaction Status Date / Time No Known Allergies Allergy Verified 05/29/24 15:18 Home Medications ?Medication ?Instructions ?Recorded ?Confirmed ?Last Taken ?Type apixaban 5 mg tablet (Eliquis) 5 mg PO BID 05/29/24 05/29/24 Unknown History clonazepam 0.5 mg tablet 0.5 mg PO BEDTIME 05/29/24 05/29/24 Unknown History dapagliflozin propanediol 10 mg 10 mg PO DAILY 05/29/24 05/29/24 Unknown History tablet (Farxiga) furosemide 40 mg tablet 40 mg PO DAILY 05/29/24 05/29/24 05/19/24 History metoprolol succinate 100 mg 100 mg PO DAILY 05/29/24 05/29/24 Unknown History tablet,extended release 24 hr naproxen sodium 220 mg tablet 220 mg PO BEDTIME PRN Muscle Pain 05/29/24 05/29/24 Unknown History (Aleve) sacubitril 24 mg-valsartan 26 mg 1 tab PO BID 05/29/24 05/29/24 Unknown History tablet (Entresto) Physical Exam 2 Vital Signs and Narrative: Vital Signs: Last Vital Signs Temp 97.3 F 05/29/24 15:16 Pulse 109 H 05/29/24 16:10 Resp 18 05/29/24 16:10 BP 122/88 05/29/24 16:10 Pulse Ox 96 05/29/24 16:10 O2 Del Method Room Air 05/29/24 16:10 BMI result Body Mass Index 27.4 Const: Other: Constitutional : Awake, interactive, not in distress Neck : Normal inspection, Supple Cardiovascular : irregular irregular, elevated JVP, +1 lower extremity edema Respiratory : decreased bilateral air entry, fine crackles, Gastrointestinal: soft, lax, Normal bowel sounds, Non tender Skin : Warm, Dry Neurological : Alert & oriented x3, No focal deficit Results Labs 05/29/24 15:10 05/30/24 04:27 Labs: Laboratory Results - last 24 hr 05/29/24 15:10 MCV 88.4 MCH 30.2 MCHC 34.2 RDW 17.9 H Plt Count 180 MPV 10.4 Immature Gran % (Auto) 0.3 Neut % (Auto) 66.9 Lymph % (Auto) 13.3 L [place] % (Auto) 13.1 H Eos % (Auto) 5.6 H Baso % (Auto) 0.8 Lymph # (Auto) 0.8 L [place] # (Auto) 0.8 Eos # (Auto) 0.4 Baso # (Auto) 0.1 Abs Immat Gran (auto) 0.02 Absolute Neuts (auto) 4.2 Absolute Nucleated RBC 0.000 Nucleated RBC % (auto) 0.0 PT 14.4 H INR 1.2 H Anion Gap 13 Estim Creat Clear Calc 87.8 Estimated GFR > 60 Random Glucose 64 Calcium 9.0 Magnesium 1.9 Total Bilirubin 2.4 H Direct Bilirubin 1.2 H AST 48 H ALT 37 Alkaline Phosphatase 165 H B-Natriuretic Peptide 603 H Total Protein 8.3 H Albumin 3.7 Imaging Radiologist's Impressions: Impressions Chest X-Ray 05/29/24 15:15 IMPRESSION: 1. Blunting of left costophrenic angle, either representing a subtle infiltrate or small effusion. Lungs otherwise clear. Electronically signed by: Derick Ty MD 05/29/2024 03:26 PM [facility] [place] and Plan (1) Congestive heart failure: Status: Acute (2) Cardiomyopathy: Status: Acute (3) Atrial fibrillation with rapid ventricular response: Status: Acute (4) Alcohol abuse: Status: Acute Plan A 54 years old male with PMH of CMP w E 20-30%, Alcohol abuse, Afib on Eliquis, sCHF among others who presents to ED with dyspnea, edema and palpitations. Atrial fibrillation with RvR secondary to inadherent to medications Metoprolol IV Load with Digoxin start his PO Metoprolol Eliquis Telemetry Acute on chronic CHF exacerbation Elevated BNP LAsix follow I\O Cardiology consult Hx Alcohol abuse last drink Monday received Ativan in ED CIWA protocol for now DVT PPx Eliquis The patient will need 2 overnight hospital stay for treatment of CHF exacerbation and Afib w RvR pending heart rate control Quality Stroke Does the patient have a stroke diagnosis?: No VTE Prior VTE?: No VTE Risk Level:: Medical - moderate - high VTE Device Contraindication: Treatment Not Indicated VTE Drug Contraindication: N/A - Med Ordered
[2024-05-29 16:27] LABS: Influenza A PCR NEGATIVE (Negative); Influenza B PCR NEGATIVE (Negative); Resp Syncy Virus RNA Qual PCR NEGATIVE (Negative); SARS COV2 PCR INHOUSE NEGATIVE (Negative)
[2024-05-29] MEDS: Furosemide 40 MG/4 ML VIAL IVPUSH (16:50)
[2024-05-29] MEDS: Digoxin 0.5 MG/2 ML AMPUL 0.125 MG IVPUSH ×2 (16:50→18:00)
[2024-05-29] MEDS: PHENobarbitaL sodium 130 MG/ML IM ONCE 273 MG IM (17:24)
--- NOTE | 2024-05-29 17:40 | PC.NURSE ---
dr bryan messaged via tiger text for clarification regarding medication orders.
--- NOTE | 2024-05-29 18:12 | PHA.MEDREC ---
Addendum entered by Ariana Osborne [facility] 05/29/24 20:00: Dr. Cruz requested meds (eliquis, clonazepam, farxiga, metoprolol and entresto) to remain in home med list so providers can see what patient is supposed to take. Meds were added back in home med list. Original Note: Pharmacy Consult ? Medication Reconciliation Pharmacy has completed the medication reconciliation. Spoke to patient to confirm medication list. Patient has a bag of meds (eliquis, clonazepam, farxiga, furosemide, metoprolol and entresto) but said he hasn't taken them in weeks . The only med he's taking is furosemide 40 mg and the last time he took it was on Dittmer day 05/19/24. He also take an Aleve otc at bedtime prn back pain.
[2024-05-29 19:01] LABS: Troponin-I High Sensitivity 30.4 ng/L (<3.5-35.0)
[2024-05-29] MEDS: Apixaban 5 MG TABLET PO (20:01)
[2024-05-29] MEDS: PHENobarbitaL sodium 130 MG/ML VIAL IM Q3Hx2 205 MG IM ×2 (20:01→23:27)
[2024-05-29] MEDS: 0.9 % Sodium Chloride Flush 3 ML SYRINGE IVFLUSH (23:28)
[2024-05-29] MEDS: Digoxin 0.5 MG/2 ML AMPUL 0.25 MG IVPUSH (23:28)
[2024-05-30] VITALS (10 sets, daily range): BP systolic 128–145; BP diastolic 84–104; PULSE 87–94; RESP 16–22; TEMP 36.6–37; O2SAT 95–98
[2024-05-30 05:23] LABS: Anion Gap 14 (12-20); Blood Urea Nitrogen 19 mg/dL (9-16); Calcium 9.2 mg/dL (8.4-10.2); Carbon Dioxide 24 mmol/L (22-29); Chloride 107 mmol/L (96-108); Creatinine Clr Calc Pharmacy 82.5; Digoxin 0.6 ng/mL (0.8-2.0); Estimated Glomerular Filt Rate > 60; Glucose Random 76 mg/dL (60-115); Magnesium 1.8 mg/dL (1.6-2.6); Potassium 3.9 mmol/L (3.3-5.1); Sodium 141 mmol/L (135-145)
[2024-05-30] MEDS: Metoprolol Tartrate 25 MG TABLET PO ×2 (05:40→11:06)
--- NOTE | 2024-05-30 07:36 | PC.NURSE ---
Resumed care of patient at 0700. he is up resting comfortably, eating breakfast at this time, HR has remained between 80-101, pt denies CP/SOB/palpitations. All needs met at this time, call sidhu within reach
[2024-05-30 08:10] LABS: Alanine Aminotransferase 35 U/L (0-40); Albumin Level 3.4 g/dL (3.5-5.0); Alkaline Phosphatase 152 U/L (39-117); Aspartate Amino Transferase 49 U/L (5-37); Bilirubin Direct 1.2 mg/dL (0.0-0.5); Total Protein 7.8 g/dL (6.5-8.0)
[2024-05-30] MEDS: Furosemide 40 MG TABLET PO (08:18)
[2024-05-30] MEDS: Empagliflozin 10 MG TABLET PO (08:18)
[2024-05-30] MEDS: PHENobarbitaL 15 MG TABLET 45 MG PO (08:18)
[2024-05-30] MEDS: 0.9 % Sodium Chloride Flush 3 ML SYRINGE IVFLUSH (08:18)
[2024-05-30] MEDS: Apixaban 5 MG TABLET PO (08:19)
--- NOTE | 2024-05-30 09:13 | MHC.CM.PN ---
CM met with Patient in the ED, at bedside. Patient lives alone in an apartment and is functionally independent. Patient declined the completion of a HCP, will need assist with transport at [place](says he will take the bus), and his PCP is Dr. Dinesh Dolan.
--- NOTE | 2024-05-30 09:16 | PM.CNCAR ---
History of Present Illness History of Present Illness Date of Service: 05/30/24 Chief complaint: SOB,Palpitations Narrative: This is a cardiology consultation regarding atrial fibrillation rapid rate/cardiomyopathy. Yesterday, he was actually seen in the clinic. He came as a new patient for evaluation. Upon evaluation, he was having atrial fibrillation with rapid rate in the 150s and then he was sent to the emergency room for evaluation. Then it seems that he was admitted. Per prior [facility] documentation, history of alcohol excess, congestive heart failure and cardiomyopathy with an ejection fraction in the 20s. History of atrial fibrillation on beta-blockers/Eliquis. However, it seems that there are compliance issues and he was not taking his medications regularly. He states that he feels like like a 'puppet' whenever he takes meds. Not entirely clear what he means. Otherwise, no overt symptoms like angina or shortness of breath at this time. Today, his blood pressure is completely normal and his heart rate is also completely normal in the 80s, which clearly indicate that he is not taking his meds at home. Review of Systems Review of Systems: Yes all other systems are reviewed and are negative Constitutional: Constitutional: Reports as per HPI and Reports no additional constitutional complaints Eyes: Eyes: Reports as per HPI and Denies no additional eye complaints ENT: Denies system reviewed and no additional complaints, except as documented and Reports as per HPI Cardiovascular: Cardiovascular: Reports as per HPI, Reports no additional cardiovascular complaints, Denies acrocyanosis, Denies cool extremities, Denies chest pain, Denies leg edema, Denies lightheadedness, Denies palpitations and Denies dyspnea Respiratory: Respiratory: Reports as per HPI, Denies no additional respiratory complaints and Denies dyspnea Gastrointestinal: Gastrointestinal: Reports as per HPI and Denies no additional gastrointestinal complaints Genitourinary: Genitourinary: Reports no additional male genitourinary complaints and Reports as per HPI Musculoskeletal: Musculoskeletal: Reports no additional musculoskeletal complaints and Reports as per HPI Integumentary/Breasts: Skin/Breast: Reports system reviewed and no additional complaints, except as docu Neurologic: Reports system reviewed and no additional complaints, except as documented and Reports as per HPI Psychiatric: Psychiatric: Reports no additional psychiatric complaints and Reports as per HPI Endocrine: Endocrine: Reports no additional endocrine complaints, Reports as per HPI and Denies palpitations Hematologic/Lymphatic: Hematologic/Lymphatic: Reports no additional hematologic/lymphatic complaints and Reports as per HPI Allergic/Immunologic: Allergic/Immunologic: Reports no additional allergic/immunologic complaints and Reports as per HPI FOR[facility]LY [facility], [facility] Past Medical History Medical History Atrial fibrillation with rapid ventricular response Cardiomyopathy Family History Family History Father No problems noted. Mother No problems noted. Social History Social History Alcohol intake: current Alcohol intake frequency: a few times a week Comment: 6 pack/one day/week Patient Tobacco Use Status: Never used Tobacco Smoked in Last 30 Days: No Use of substances other than those prescribed or required for medical reasons: No Advance Directives: No Advance Directives Information Provided: No Meds Allergies Allergy/AdvReac Type Severity Reaction Status Date / Time No Known Allergies Allergy Verified 05/29/24 15:18 Active Medications: Current Medications Acetaminophen (Acetaminophen 325 Mg Tablet) 650 mg PO Q6H PRN PRN Reason: Pain, Mild 1-3,fever,headache Apixaban (Apixaban 5 Mg Tablet) 5 mg PO BID [facility] Last Admin: 05/30/24 08:19 Dose: 5 mg Calcium Carbonate (Calcium Carbonate 750 Mg Tab.Chew) 750 mg PO Q4H PRN PRN Reason: Heartburn Clonazepam (Clonazepam 0.5 Mg Tablet) 0.5 mg PO BEDTIME PRN PRN Reason: Anxiety Empagliflozin (Empagliflozin 10 Mg Tablet) 10 mg PO DAILY [facility] Last Admin: 05/30/24 08:18 Dose: 10 mg Furosemide (Furosemide 40 Mg Tablet) 40 mg PO DAILY [facility]; Protocol Last Admin: 05/30/24 08:18 Dose: 40 mg Magnesium Hydroxide (Milk Of Magnesia 30 Ml Oral.Susp) 30 ml PO DAILY PRN PRN Reason: Constipation Melatonin (Melatonin 3 Mg Tablet) 6 mg PO BEDTIME PRN PRN Reason: Insomnia Metoprolol Tartrate (Metoprolol Tartrate 25 Mg Tablet) 25 mg PO Q6H [facility]; Protocol Last Admin: 05/30/24 05:40 Dose: 25 mg Ondansetron HCl (Ondansetron Hcl 4 Mg/2 Ml Vial) 4 mg IVPUSH Q8H PRN PRN Reason: Nausea and Vomiting Pharmacy Consult (Consult Rx Etoh Phenob Im/Po) 1 each MISCELLANE ONCE PRN; Protocol PRN Reason: Consult order Phenobarbital (Phenobarbital 15 Mg Tablet) 45 mg PO BID [facility] Stop: 05/31/24 21:01 Last Admin: 05/30/24 08:18 Dose: 45 mg Phenobarbital (Phenobarbital 30 Mg Tablet) 30 mg PO BID [facility] Stop: 06/02/24 21:01 Phenobarbital (Phenobarbital 15 Mg Tablet) 15 mg PO DAILY [facility] Stop: 06/04/24 09:01 Sodium Chloride (0.9 % Sodium Chloride Flush 3 Ml Syringe) 3 ml IVFLUSH QSHIFT [facility] Last Admin: 05/30/24 08:18 Dose: 3 ml Home Medications ?Medication ?Instructions ?Recorded ?Confirmed ?Last Taken ?Type apixaban 5 mg tablet (Eliquis) 5 mg PO BID 05/29/24 05/29/24 Unknown History clonazepam 0.5 mg tablet 0.5 mg PO BEDTIME 05/29/24 05/29/24 Unknown History dapagliflozin propanediol 10 mg 10 mg PO DAILY 05/29/24 05/29/24 Unknown History tablet (Farxiga) furosemide 40 mg tablet 40 mg PO DAILY 05/29/24 05/29/24 05/19/24 History metoprolol succinate 100 mg 100 mg PO DAILY 05/29/24 05/29/24 Unknown History tablet,extended release 24 hr naproxen sodium 220 mg tablet 220 mg PO BEDTIME PRN Muscle Pain 05/29/24 05/29/24 Unknown History (Aleve) sacubitril 24 mg-valsartan 26 mg 1 tab PO BID 05/29/24 05/29/24 Unknown History tablet (Entresto) Physical Exam Vital Signs: Vital Signs: Last Vital Signs Temp 98.6 F 05/30/24 08:23 Pulse 90 05/30/24 08:23 Resp 18 05/30/24 08:23 BP 128/89 05/30/24 08:23 Pulse Ox 95 05/30/24 08:23 O2 Del Method Room Air 05/30/24 08:23 BMI result Body Mass Index 27.4 Const: General: comfortable and no acute distress Orientation/consciousness: patient oriented x3 HEENT: Other: Unremarkable Head: Yes normal to inspection Neck: Neck: Yes normal visual inspection Chest: Chest palpation & inspection: normal inspection of the chest Resp: Auscultation: clear to auscultation bilaterally Cardio: Palpation: normal PMI Heart sounds: S1 normal heart sound present, S2 normal heart sound present, no gallops, no murmurs and no rubs GI: Palpation (GI): Soft to palpation Back/Spine/Pelvis: Other: unremarkable Skin: General skin exam: no rashes or lesions noted Neuro: General: patient oriented x3 Extrem: General: Yes normal to inspection Psych: Mental Status: mental status grossly normal Objective Labs and Meds 05/29/24 15:10 05/30/24 04:27 Lab results: Laboratory Results - last 24 hr 05/29/24 05/29/24 05/30/24 15:10 18:26 04:27 WBC 6.3 RBC 5.00 Hgb 15.1 Hct 44.2 MCV 88.4 MCH 30.2 MCHC 34.2 RDW 17.9 H Plt Count 180 MPV 10.4 Immature Gran % (Auto) 0.3 Neut % (Auto) 66.9 Lymph % (Auto) 13.3 L [place] % (Auto) 13.1 H Eos % (Auto) 5.6 H Baso % (Auto) 0.8 Lymph # (Auto) 0.8 L [place] # (Auto) 0.8 Eos # (Auto) 0.4 Baso # (Auto) 0.1 Abs Immat Gran (auto) 0.02 Absolute Neuts (auto) 4.2 Absolute Nucleated RBC 0.000 Nucleated RBC % (auto) 0.0 PT 14.4 H INR 1.2 H Sodium 140 141 Potassium 4.6 3.9 Chloride 109 H 107 Carbon Dioxide 23 24 Anion Gap 13 14 BUN 17 H 19 H Creatinine 0.93 0.99 Estim Creat Clear Calc 87.8 82.5 Estimated GFR > 60 > 60 Random Glucose 64 76 Calcium 9.0 9.2 Magnesium 1.9 1.8 Total Bilirubin 2.4 H 2.0 H Direct Bilirubin 1.2 H 1.2 H AST 48 H 49 H ALT 37 35 Alkaline Phosphatase 165 H 152 H Troponin I High Sens 26.1 30.4 B-Natriuretic Peptide 603 H Total Protein 8.3 H 7.8 Albumin 3.7 3.4 L Digoxin 0.6 L Influenza Type A (PCR) NEGATIVE Influenza Type B (PCR) NEGATIVE RSV RNA Qual (PCR) NEGATIVE SARS-CoV-2 RNA (RT-PCR) NEGATIVE ECG Interpretation: EKG with atrial fibrillation at a rate of 150/Min. Imaging Radiologist's impression: Impressions Chest X-Ray 05/29/24 15:15 IMPRESSION: 1. Blunting of left costophrenic angle, either representing a subtle infiltrate or small effusion. Lungs otherwise clear. Electronically signed by: Derick Ty MD 05/29/2024 03:26 PM [facility] Assessment and Plan (1) Atrial fibrillation with rapid ventricular response: Status: Acute Per home meds, he is on metoprolol. Encourage to take that regularly. When he came to the clinic, heart rate in the 150s but currently in the 80s. Clearly indicates that with meds it does get better. Continue Eliquis. We will hold off on cardioversion as I am not entirely clear how compliant he is going to be. (2) Cardiomyopathy: Status: Acute Cardiomyopathy based on [place] [facility] [place], but no overt heart failure symptoms at this time. Continue metoprolol/Entresto. Again compliance as much able. (3) Excessive drinking alcohol: Status: Acute Avoid excessive alcohol use. Needs to cut back and probably abstain but again need to see how he will do in the future. Procedures Date of Service Date of Service: 05/30/24
[2024-05-30] MEDS: Digoxin 0.125 MG TABLET PO (11:06)
--- NOTE | 2024-05-30 11:07 | PC.NURSE ---
Pt given eduction on new medication, pt verbalized education, pt also encouraged to ambulate to the bathroom instead of urinal, pt in agreement with plan
--- NOTE | 2024-05-30 13:49 | P.DS_ITS ---
DS: Providers Provider Date of Service: 05/30/24 Date of admission: 05/29/24 17:18 Date of discharge: 05/30/24 Primary care physician: Dinesh Engel MD Consults: 05/29/24 17:18 Consult to Cardiology Routine Consulting Provider: [facility] Reason for consultation: Systolic CHF with exacerbation, Afib w RvR 05/30/24 13:45 Addiction Medicine Routine Consulting Provider: Addiction Covering Reason for consultation: alcohol abuse DS: Diagnosis Discharge Diagnosis (1) Congestive heart failure: Status: Acute (2) Cardiomyopathy: Status: Acute (3) Atrial fibrillation with rapid ventricular response: Status: Acute (4) Alcohol abuse: Status: Acute DS: Summary Hospital Course Hospital Course: Admission note HPI A 54 years old male with PMH of CMP w E 20-30%, Alcohol abuse, Afib on Eliquis, sCHF among others who presents to ED with dyspnea, edema and palpitations. The patient reports being non-compliant to his medications. Noted worsening SOB and dyspnea on exertion and speaking. for the last couple of weeks. reporting more persistant palpitations with heart rate in 150s. No chest pain, nausea, vomiting, diarrhea or urinary symptoms. In found to have elevated BNP as CXR showing infiltrates and small effusions. received 2 doses of IV Metoprolol with mild improvement of heart rate from 150s to 110s. Admitted for further eval and treatment. Hospital course The patient was evaluated for Atrial fibrillation with RvR secondary to inadherent to medications at home. responded well to Metoprolol IV, Load with Digoxin and start PO Metoprolol Q6H along his Eliquis home dose with good response as he was monitored on Telemetry with heart rate improved to 80s with no more palpitations reported as he was able to ambulate on room air with no dyspnea or palpitations. Has mild acute on chronic CHF exacerbation with Elevated BNP improved significantly with IV LAsix as he was seen by cardiology who recommended to add Digoxin to his home medications and to follow as outpatient. REgarding his Hx Alcohol abuse with last drink Monday He was monitored on CIWA protocol scoring 0. He was started on PHenobarb protocol by ED provider but does not seem he was actively withdrawing. he has essential tremors all the time. consulted addiction team for evaluation and advised him for total abstinence from Alcohol. Discharge plan Continue home medications as prescribed Start Digoxin 0.125 mcg daily we advise you total abstinence from Alcohol Follow with [facility]; Dr Akers [phone] Follow with PCP regarding disability paperwork The patient made quicker than expected recovery and will not need 2 overnight hospital stay. Time Attestation Discharge Coordination Time (in mins): 37 Quality: Safe Use of Opioids Does Pt have an Active Cancer Diagnosis on the Problem List?: No Quality: Stroke Does the patient have a stroke diagnosis?: No Physical Exam Vital Signs: Vital Signs: Last Vital Signs Temp 98.1 F 05/30/24 12:11 Pulse 88 05/30/24 12:11 Resp 17 05/30/24 12:11 BP 145/104 H 05/30/24 12:11 Pulse Ox 95 05/30/24 12:11 O2 Del Method Room Air 05/30/24 12:11 BMI result Body Mass Index 27.4 Const: Other: Constitutional : Awake, interactive, not in distress Neck : Normal inspection, Supple Cardiovascular : irregular irregular, JVP, trace lower extremity edema Respiratory : fair bilateral air entry, no crackles, Gastrointestinal: soft, lax, Normal bowel sounds, Non tender Skin : Warm, Dry Neurological : Alert & oriented x3, No focal deficit DS: Data Data Completed and Pending Labs on day of discharge: Laboratory Results - last 24 hr 05/29/24 05/29/24 05/30/24 15:10 18:26 04:27 WBC 6.3 RBC 5.00 Hgb 15.1 Hct 44.2 MCV 88.4 MCH 30.2 MCHC 34.2 RDW 17.9 H Plt Count 180 MPV 10.4 Immature Gran % (Auto) 0.3 Neut % (Auto) 66.9 Lymph % (Auto) 13.3 L [place] % (Auto) 13.1 H Eos % (Auto) 5.6 H Baso % (Auto) 0.8 Lymph # (Auto) 0.8 L [place] # (Auto) 0.8 Eos # (Auto) 0.4 Baso # (Auto) 0.1 Abs Immat Gran (auto) 0.02 Absolute Neuts (auto) 4.2 Absolute Nucleated RBC 0.000 Nucleated RBC % (auto) 0.0 PT 14.4 H INR 1.2 H Sodium 140 141 Potassium 4.6 3.9 Chloride 109 H 107 Carbon Dioxide 23 24 Anion Gap 13 14 BUN 17 H 19 H Creatinine 0.93 0.99 Estim Creat Clear Calc 87.8 82.5 Estimated GFR > 60 > 60 Random Glucose 64 76 Calcium 9.0 9.2 Magnesium 1.9 1.8 Total Bilirubin 2.4 H 2.0 H Direct Bilirubin 1.2 H 1.2 H AST 48 H 49 H ALT 37 35 Alkaline Phosphatase 165 H 152 H Troponin I High Sens 26.1 30.4 B-Natriuretic Peptide 603 H Total Protein 8.3 H 7.8 Albumin 3.7 3.4 L Digoxin 0.6 L Influenza Type A (PCR) NEGATIVE Influenza Type B (PCR) NEGATIVE RSV RNA Qual (PCR) NEGATIVE SARS-CoV-2 RNA (RT-PCR) NEGATIVE Imaging Chest x-ray: Radiologist's impression: ITS Impressions Chest X-Ray 05/29/24 15:15 IMPRESSION: 1. Blunting of left costophrenic angle, either representing a subtle infiltrate or small effusion. Lungs otherwise clear. Electronically signed by: Derick Ty MD 05/29/2024 03:[address] [facility] Discharge Plan Discharge Anticipated Discharge Date/Time: 05/30/24 13:45 Patient Disposition: Home, Self-Care Discharge Diagnosis: Atrial fibrillation with rapid ventricular response Referrals: Dinesh Hernandez MD [Primary Care Provider] - 1 Week Discharge Medications: New digoxin 125 mcg (0.125 mg) Tablet 0.125 mg PO DAILY Qty: 90 0RF Protocol: Hold for HR <: HOLD for HR < : 60 Continued naproxen sodium [Aleve] 220 mg Tablet 220 mg PO BEDTIME PRN (Reason: Muscle Pain) clonazepam 0.5 mg tablet 0.5 mg PO BEDTIME metoprolol succinate 100 mg tablet extended release 24 hr 100 mg PO DAILY Eliquis 5 mg tablet 5 mg PO BID dapagliflozin propanediol [Farxiga] 10 mg tablet 10 mg PO DAILY sacubitril-valsartan [Entresto] 24-26 mg tablet 1 tab PO BID furosemide 40 mg tablet 40 mg PO DAILY Discharge Orders: Discharge Order (Routine); Ordered 05/30/24 Ordered By: Michelle Cruz Diet: Low salt diet Activity on Discharge: As tolerated Stand Alone Forms: Patient Portal Discharge page Print Language: Italian Care Plan Goals: Continue home medications as prescribed Start Digoxin 0.125 mcg daily we advise you total abstinence from Alcohol Follow with [facility]; Dr Akers [phone] Follow with PCP regarding disability paperwork Health Concerns: Atrial fibrillation Alcohol abuse Plan of Treatment: Digoxin Outpatient follow up Assessment: as above
--- NOTE | 2024-05-30 13:49 | MHC.CM.PN ---
Patient has been medically cleared for dc to home today, self care.
[2024-05-30] MEDS: Metoprolol Succinate ER 100 MG TAB.ER.24H PO (14:40)
== END 2024-05-30 14:50 | disposition home or self-care (01) | DRG 201 ==
LOC: HO.ED 16:22 → HO.EDOVER 17:28
PROVIDERS: Physician Assistant; Admitting Provider Student in an Organized Health Care Education/Training Program; Emergency Provider Emergency Medicine; PCP Internal Medicine; Visit Provider Student in an Organized Health Care Education/Training Program
DX: I48.91 Unspecified atrial fibrillation (principal); I50.23 Acute on chronic systolic (congestive) heart failure; I42.9 Cardiomyopathy, unspecified; F10.10 Alcohol abuse, uncomplicated; Z20.822 Contact with and (suspected) exposure to COVID-19; Z71.41 Alcohol abuse counseling and surveillance of alcoholic; Z91.148 Patient's other noncompliance with medication regimen for other reason; Z79.01 Long term (current) use of anticoagulants; Z79.899 Other long term (current) drug therapy
CPT/HCPCS: 0241U; 36415; 71046; 80048; 80076; 80162; 83735; 83880; 84484; 85025; 85610; 93005; 99285; J1160; J1940; J2560

== ENCOUNTER → 2024-05-29 15:04 | Outpatient (BNV) | payer BC, SELFPAY | PROVIDERS: PCP Internal Medicine; Visit Provider Radiology Diagnostic Radiology | DX: R06.02 Shortness of breath (principal) | CPT/HCPCS: 71046 ==

== ENCOUNTER → 2024-05-29 17:18 | Outpatient (BNV) | payer BC, SELFPAY | PROVIDERS: Admitting Provider Student in an Organized Health Care Education/Training Program; Emergency Provider Emergency Medicine; PCP Internal Medicine; Visit Provider Internal Medicine | DX: I48.91 Unspecified atrial fibrillation (principal); I42.9 Cardiomyopathy, unspecified; F10.10 Alcohol abuse, uncomplicated | CPT/HCPCS: 99223 ==

== ENCOUNTER → 2024-05-29 17:18 | Outpatient (BNV) | payer BC, SELFPAY | PROVIDERS: Admitting Provider Student in an Organized Health Care Education/Training Program; Emergency Provider Emergency Medicine; PCP Internal Medicine; Visit Provider Student in an Organized Health Care Education/Training Program | DX: I50.9 Heart failure, unspecified (principal); I42.9 Cardiomyopathy, unspecified; I48.91 Unspecified atrial fibrillation; F10.10 Alcohol abuse, uncomplicated | CPT/HCPCS: 99239 ==

== ENCOUNTER 2024-07-02 14:49 | Outpatient (AMB) | payer BC, SELFPAY ==
[2024-07-02 15:08] VITALS: BP 172/116; BMI 31.0
--- NOTE | 2024-07-02 15:08 | MHC.OFFVIS ---
Vital Signs 07/02/24 15:08 Height 5 ft 8 in Weight 203 lb 11.314 oz BMI 31.0 BP 172/116 H Blood Pressure Location Lt brachial Position Sitting Intake Visit Reasons: 4 week f/up after testing Dog Food Shredder Operator Required: No Dog Food Shredder Operator Services: Dog Food Shredder Operator Offered & Declined Dog Food Shredder Operator Name: Niece will translate Accompanied by: Nephew or Niece Allergies No Known Allergies Allergy (Verified 05/29/24 15:18) Medication List - Last Reconciled 07/02/24 by Fran Bedolla NP apixaban (Eliquis) 5 mg PO BID clonazepam 0.5 mg PO BEDTIME dapagliflozin propanediol (Farxiga) 10 mg PO DAILY digoxin 0.125 mg See Protocol PO DAILY furosemide 40 mg PO DAILY metoprolol succinate ER 100 mg PO DAILY naproxen sodium (Aleve) 220 mg PO BEDTIME PRN sacubitril-valsartan 24-26 mg (Entresto) 1 tab PO BID HPI Comments Details: This is a 54-year-old male patient presenting for a follow-up visit. Patient with history of atrial fibrillation and cardiomyopathy. Patient was last seen in office a month ago following discharge from [facility], during which it was noted that the patient was in AFib with RVR. Patient was referred to the ER where he was treated with IV metoprolol and digoxin which successfully reduced his heart rate. Due to questions of compliance with Eliquis, cardioversion was not attempted. Today the patient returns for a follow-up and continues to struggle with noncompliance. He is accompanied by his niece who states that she will now be in charge of his health moving forward. Patient is denying any symptoms of exertional chest pain, shortness of breath, palpitations, dizziness, fatigue, orthopnea, PND, leg edema, presyncope, or syncope. The patient continues to drink alcohol but his niece reports that he has reduced consumption significantly to once a week. The patient denies use of any stimulants. [facility] Medical History (Updated 07/02/24 @ 16:22 by Fran Bedolla NP) Cardiomyopathy Atrial fibrillation with rapid ventricular response Excessive drinking alcohol Alcohol abuse Congestive heart failure Family History Father No problems noted. Mother No problems noted. Social History Alcohol intake: current Alcohol intake frequency: a few times a week Comment: 6 pack/one day/week Patient Tobacco Use Status: Never used Tobacco service: No Review of Systems Const Denies chills, Denies fatigue, Denies fever(s), Denies weight gain and Denies weight loss ENT Denies dizziness Card Denies chest pain, Reports irregular heart rhythm, Denies leg edema, Denies lightheadedness, Denies palpitations, Denies dyspnea on exertion, Denies orthopnea and Denies other Resp Denies cough and Denies dyspnea on exertion GI Denies hematochezia and Denies change in stool character Musc Denies abnormal gait, Denies muscle weakness, Denies numbness, Denies radiating pain into limb and Denies tingling Neuro Denies abnormal gait, Denies dizziness, Denies numbness and Denies tingling Endo Denies fatigue and Denies palpitations Physical Exam Vital Signs: Last Vital Signs BP 172/116 H 07/02/24 15:08 BMI result Body Mass Index 31.0 Const General: cooperative, healthy appearing, comfortable and no acute distress Orientation/consciousness: patient oriented x3 HEENT Head: Yes normal to inspection Neck Neck: Yes normal visual inspection, Yes trachea midline and Yes supple Chest Chest palpation & inspection: normal inspection of the chest Resp Effort & Inspection: normal respiratory effort Auscultation: clear to auscultation bilaterally, no crackles, no rales, no rhonchi and no wheezes Cardio Jugular venous distension: no JVD Palpation: normal PMI Rate: tachycardic Rhythm: abnormal rhythm irregularly irregular Heart sounds: S1 normal heart sound present, S2 normal heart sound present, no click, no gallops, no murmurs and no rubs Peripheral pulses: Peripheral pulses 2+ throughout GI Inspection: Yes normal to inspection Palpation (GI): Soft to palpation Auscultation: normal bowel sounds Skin General skin exam: no rashes or lesions noted Neuro General: patient oriented x3 Extrem General: Yes normal to inspection, No no pedal edema and No calf tenderness Psych Appearance: grossly normal Mental Status: mental status grossly normal Speech and movement: Normal speech and movement present Office Procedures EKG Details: EKG today shows atrial fibrillation with RVR, rate 131 beats per minute, possible right ventricular hypertrophy, nonspecific ST- T [place], [place]. [id number], Complete Assessment & Plan Assessment & Plan (1) Atrial fibrillation with rapid ventricular response: Code(s): I48.91 - Unspecified atrial fibrillation Category: Medical Plan: EKG today showed AFib with a RVR. Patient continues to have noncompliance issues and has not been taking his medications as prescribed. Patient's knees is going to take over his medications and health. Emphasized on the need for medication compliance. Take Eliquis twice daily for full anticoagulation therapy. Discussed the risk for stroke with noncompliance. Start metoprolol and digoxin for rate control approach. Discuss this case with Dr. Akers- we will bring the patient back in 2 weeks to assess for any improvement. (2) Cardiomyopathy: Code(s): I42.9 - Cardiomyopathy, unspecified Category: Medical Plan: 08/14/2023-echo study at [facility] showed EF at 20-30%, severe global hypokinesis of left ventricle, right and left atrium mildly dilated, mild mitral regurgitation. Again with noncompliance, hard to tell what patient is taking at this time. Emphasize to start taking the medications as prescribed. Patient is on Farxiga, Lasix, Entresto, and metoprolol. (3) Hypertension: Code(s): I10 - Essential (primary) hypertension Category: Medical Plan: Patient's blood pressure today is elevated. Again with noncompliance hard to titrate medications. Advised patient to check blood pressures at home and to keep a log of it. We will follow up with the patient in 2 weeks' time. In the interim, patient will call the office with any concerns or change in symptoms. This note was generated using voice recognition software. While every effort has been made to ensure accuracy and proper supervisor compressed yeast, there may be occasional errors that could affect the content or meaning of the described symptoms. Orders: Orders AMB EKG-In Office Today I48.91 - Unspecified atrial fibrillation Medications: New blood pressure monitor As directed 1 ea 0RF Coding Level of Care Code Est Pt Level 4 (96087) Complex EM visit Add On G2211 Diagnoses Atrial fibrillation with rapid ventricular response I48.91 Cardiomyopathy I42.9 Hypertension I10 CPT Codes EKG - CPT: 88516-[id number], Complete ([id number]) Time Spent (min) 36 Comment Time spent in reviewing the chart, test results, assessment, counseling and documentation.
--- OUTSIDE RECORDS SUMMARY | 2024-07-02 18:33 | XMS_ITS | Encounter Summary ---
Author Organization [employer] Address [address] [facility] 7 [place] [address] Care Team Providers Care Boot And Saddle Repair Person Name Role Phone Dinesh Hernandez MD Primary Care Prov ider Reason for Visit * Reason Onset Date Comments chart prep 06/06/2024 Encounter Details Date Type Department Care Team ([facility] st Contact Info) Description 06/06/2024 Telephone [facility] MED & PEDS [address] [place], [place] [phone] Dinesh Hernandez MD [address] [place] [address] chart prep Social History Tobacco Use Types Packs/Day Years [...] encounter Miscellaneous Notes * Telephone Encounter - Radha Cruz [place] - 06/06/2024 2:21 PM EST Chart Prep Labs: done Images: not applicable Vaccines due: yes Referrals: pending appt Screenings: colonoscopy Overdue care gaps: none documented in this encounter Plan of Treatment Upcoming Encounters Date Type Department Care Team (Late st Contact Info) Description 07/30/2024 9:30 AM EDT Office Visit [facility] MED & PEDS [address] [place] [address] Dinesh Hernandez MD [address] [place] [address] documented as of this encounter Visit Diagnoses Not on filedocumented in this encounter Additional Health Concerns Assessment Noted Time PHQ-9 Depression Total Score: 0 03/18/20 9:28 AM EST documented as of this encounter Care Teams Boot And Saddle Repair Person Relationship Specialty Start Date End Date Dinesh Hernandez MD [address] [place] [address] PCP - General Internal Medicine 01/23/24 documented as of this encounter
--- OUTSIDE RECORDS SUMMARY | 2024-07-02 18:33 | XMS_ITS | Clinical Summary ---
Author Organization [employer] Address [address] [facility] [address] [place] [address] Care Team Providers Care Automobile Parts Assembler Name Role Phone Dinesh Hernandez MD Primary [...] daily. 60 tablet 11 2024 5 Active digoxin (Lanoxin) 125 MCG tablet Take 125 mcg by mouth Once per day. Active Active Problems Problem Noted Date Diagnosed Date Encounter for adult wellness visit 2024 Assessment & Plan (2024 12:48 PM EST): Plan Dietary counseling Alcohol use counseling Referral to vision and dentist Follow up on local hazmat driver and neurologist Covcuauhtemoc and Pneumococcal vaccine Encounter for immunization 2024 [...] Permanent atrial fibrillation 02/02/2024 Assessment & Plan (06/21/2024 4:19 PM EDT): Continue eliquis, risk of stopping it discussed Assessment & Plan (02/02/2024 12:09 AM EDT): Pateint was not taking eliquis, reviewed risk, will send renewal to [facility] Alcohol use disorder 02/02/2024 Tremors of nervous system 02/02/2024 Assessment & Plan (06/21/2024 4:16 PM EDT): Followed by neurology, no changes will be made Assessment & Plan (02/02/2024 12:00 AM EDT): Will refer to neurology Chronic systolic congestive heart failure 2023 Assessment & Plan (2024 12:35 PM EST): Bilateral lower extremities pitting edema with discoloration Dry cough when lying down Plan Increase dose of sacubitril-Valsartan 49-51 Follow up appointment with local hazmat driver Dietary counseling Patient counseling on CHF Assessment [...] Meds:- Primary hypertension 01/31/2024 Assessment & Plan (06/21/2024 4:16 PM EDT): Patient could not provide me with today bp result,, encouraged to continue low sodium diet, keep bp log, continue current medical therapy. Patient was encouraged to take medications daily as prescribed, follow up with cardiology Assessment & Plan (02/20/2024 6:39 PM EST): [...] than 2 months, has not followed with local hazmat driver, not clear why he is on those medication, will request er/hospital discharge, apperently they were started back on august Encounters Date Type Department Care Team Description 06/07/2024 10:30 AM EST Telemedicine [facility] MED & PEDS [address] [place] [address] Dinesh Hernandez MD Primary hypertension (Primary Dx); Chronic systolic congestive heart failure (CMS/HCC); Permanent atrial fibrillation (CMS/HCC); Tremors of nervous system 06/07/2024 Travel 06/06/2024 Telephone [facility] MED & PEDS [address] [place] [address] Dinesh Hernandez MD chart prep 05/22/2024 Telephone [facility] PED[facility] [address] [place] [address] Dinesh Hernandez MD No Show 05/21/2024 Telephone [facility] [address] [place] [address] Dinesh Hernandez MD Chart Prep from Last 3 Months Immunizations Name Administration [...] 2024 9:27 AM EST Plan of Treatment Upcoming Encounters Date Type Department Care Team (Late st Contact Info) Description 07/30/2024 9:30 AM EDT Office Visit [facility] MED [facility] PED[facility] [address] [place] [address] Dinesh Hernandez MD [address] [place] [address] Health Maintenance Due Date Last Done Comments [...] Procedure Name Priority Date/Time Associated Diagnosis Comments HEPATITIS C AB W/REFL TO HCV RNA, QN, PCR Routine 02/20/2024 4:04 PM EST Primary hypertension HIV 1/2 ANTIGEN/ANTIBODY, FOURTH GENERATION W/RFL Routine 02/20/2024 4:04 PM EST Primary hypertension LIPID PANEL, STANDARD Routine 02/20/2024 4:04 PM EST Primary hypertension from Last 3 Months or Most Recently Relevant to Health Maintenance Results * Hepatitis C Antibody with Reflex to HCV, RNA, Quantitative, Real-Time PCR (02/20/2024 4:04 PM EST) Hepatitis C Antibody Nonreactive Nonreactive [facility] Comment:Antibodies to HCV no t detected; does not exclude early acuteHCV infection. Blood Venous blood specimen / Unknown 02/20/2024 4:04 PM EST 02/20/2024 5:56 PM EST Dinesh Engel MD LAB BLOOD ORDERABL ES Final Result Performing Organization Address [facility] Co de Phone Number [facility] [address] [place] [address] [phone] * HIV-1/2 Antigen and Antibodies, Fourth Generation, with Reflexes (02/20/2024 4:04 PM EST) HIV AB/AG Nonreactive Nonreactive [facility] Comment:HIV-1 p24 Ag and/or HIV-1/HIV-2 Ab not detected.A test result that is nonreactive does not exclude thepossibility of exposure to or infection with HIV-1 and/orHIV-2. Nonreactive results in this assay for individualswith prior exposure to HIV-1 and/or HIV-2 may be due toantigen and antibody levels that are below the limit ofdetection of this assay.The [facility] HIV Ag/Ab Combo assay result andsupplemental assay results should be interpreted inconjunction with the patient's clinical presentation,history and other laboratory results. If the results areinconsistent with clinical evidence, additional testing issuggested to confirm the result. Blood Venous blood specimen / Unknown 02/20/2024 4:04 PM EST 02/20/2024 5:56 PM EST Dinesh Engel MD LAB BLOOD ORDERABL ES Final Result Performing Organization Address [facility]/ZIP Co de Phone Number [facility] [address] [place] [address] [phone] * (ABNORMAL) Lipid Panel, Standard (02/20/2024 4:04 PM EST) Triglycerides 57 <150 mg/dL [facility] Comment:Desirable Triglyceri de: less than 150 mg/dLBorderline High Triglyceride 150-199 mg/dLHigh Triglyceride: 200-499 mg/dLVery High Triglyceride: greater than or equal to 5OO mg/dL Cholesterol 123 <200 mg/dL [facility] Comment:Desirable Cholestero l: less than 200 mg/dLBorderline High Cholesterol: 200-239 mg/dLHigh Cholesterol: greater than 239 mg/dL LDL Cholesterol Calculated 80 <100 mg/dL [facility] Comment:Desirable LDL: less than 100 mg/dLNear Optimal/Above Optimal LDL: 110- 129 mg/dLBorderline High LDL: 130-159 mg/dLHigh LDL: 160-189 mg/dLVery High LDL: greater than or equal to 190 mg/dL HDL Cholesterol 32(L) >40 mg/dL [facility] Comment:Desirable HDL: great er than 40 mg/dL Note: This HDL assay may give artificially low results in patients with liver disease. Blood Venous blood specimen / Unknown 02/20/2024 4:04 PM EST 02/20/2024 5:56 PM EST Dinesh Engel MD LAB BLOOD ORDERABL ES Final Result [facility] [address] [place] [address] [phone] from Last 3 Months or Most Recently Relevant to Health Maintenance Insurance [facility] HMO Care Teams Automobile Parts Assembler Relationship Specialty Start Date End Date Dinesh Hernandez MD [address] [place] [phone] PCP - General Internal Medicine 01/23/24
--- OUTSIDE RECORDS SUMMARY | 2024-07-02 18:33 | XMS_ITS | Encounter Summary ---
Author Organization [employer] Address [address] [facility] 7[address] [place] [address] Care Team Providers Care Urgent Care Technician Name Role Phone Dinesh Hernandez MD Primary Care Prov ider Encounter Details Date Type Department Care Team (Late st Contact Info) Description 06/07/2024 10:30 AM EST Telemedicine [facility] MED & PEDS [address] [place], [place] [phone] Dinesh Hernandez MD [address] [place] [address] Primary hypertension (Primary Dx); Chronic systolic congestive heart failure (CMS/HCC); Permanent atrial fibrillation (CMS/HCC); Tremors of nervous system Social History Tobacco Use Types Packs/Day Years [...] AM EDT documented as of this encounter Progress Notes * Dinesh Engel MD - 06/07/2024 10:30 AM EST Subjective Patient ID: Ren Rodriguez is a 54 y.o. male who presents for No chief complaint on file.. Hypertension This is a chronic problem. Pertinent negatives include no chest pain, headaches or shortness of breath. Review of Systems Respiratory: Negative for shortness of breath. Cardiovascular: Negative for chest pain. Neurological: Negative for headaches. Objective Physical Exam Neurological: General: No focal deficit present. Mental Status: He is oriented to person, place, and time. Psychiatric: Mood and Affect: Mood normal. Behavior: Behavior normal. Assessment/Plan Problem List Items Addressed This Visit Primary hypertension - Primary Patient could not provide me with today bp result,, encouraged to continue low sodium diet, keep bplog, continue current medical therapy. Patient was encouraged to take medications daily as prescribed, follow up with cardiology Chronic systolic congestive heart failure (CMS/HCC) Relevant Medications digoxin (Lanoxin) 125 MCG tablet Permanent atrial fibrillation (CMS/HCC) Continue eliquis, risk of stopping it discussed Relevant Medications digoxin (Lanoxin) 125 MCG tablet Tremors of nervous system Followed by neurology, no changes will be made documented in this encounter Miscellaneous Notes * Assessment & Plan Note - Dinesh Engel MD - 06/21/2024 4:19 PM EDTAssociated Problem(s): Permanent atrial fibrillation (CMS/HCC) Continue eliquis, risk of stopping it discussed * Assessment & Plan Note - Dinesh Engel MD - 06/21/2024 4:16 PM EDTAssociated Problem(s): Tremors of nervous system Followed by neurology, no changes will be made * Assessment & Plan Note - Dinesh Engel MD - 06/21/2024 4:16 PM EDTAssociated Problem(s): Primary hypertension Patient could not provide me with today bp result,, encouraged to continue low sodium diet, keep bplog, continue current medical therapy. Patient was encouraged to take medications daily as prescribed, follow up with cardiology documented in this encounter Plan of Treatment Upcoming Encounters Date Type Department Care Team (Late st Contact Info) Description 07/30/2024 9:30 AM EDT Office Visit [facility] MED & PEDS [address] [place] [address] Dinesh Hernandez MD [address] [place] [address] documented as of this encounter Visit Diagnoses Diagnosis Primary hypertension- Primary Unspecified essential hypertension Chronic systolic congestive heart failure (CMS/HCC) Permanent atrial fibrillation (CMS/HCC) Atrial fibrillation Tremors of nervous system documented in this encounter Additional Health Concerns Assessment Noted Time PHQ-9 Depression Total Score: 0 03/18/20 24 9:28 AM EST documented as of this encounter Care Teams Urgent Care Technician Relationship Specialty Start Date End Date Dinesh Hernandez MD [address] [place] [address] PCP - General Internal Medicine 01/23/24 documented as of this encounter
--- OUTSIDE RECORDS SUMMARY | 2024-07-02 18:33 | XMS_ITS | Encounter Summary ---
Author Organization [employer] Address [address] [facility] 7[address] [place] [address] Care Team Providers Care Timber Setter Name Role Phone Dinesh Hernandez MD Primary Care Prov ider Encounter Details Date Type Department Care Team (Latest Contact Info) Description 06/07/2024 Travel Social History Tobacco Use Types Packs/Day Years [...] AM EDT documented as of this encounter Plan of Treatment Upcoming Encounters Date Type Department Care Team (Late st Contact Info) Description 07/30/2024 9:30 AM EDT Office Visit [facility] MED & PEDS [address] [place] [address] Dinesh Hernandez MD [address] [place] [address] documented as of this encounter Visit Diagnoses Not on filedocumented in this encounter Additional Health Concerns Assessment Noted Time PHQ-9 Depression Total Score: 0 03/18/20 9:28 AM EST documented as of this encounter Care Teams Timber Setter Relationship Specialty Start Date End Date Dinesh Hernandez MD [address] [place] [address] PCP - General Internal Medicine 01/23/24 documented as of this encounter
== END 2024-07-02 16:10 | disposition home or self-care (01) ==
LOC: HO.HCS 14:50
PROVIDERS: PCP Internal Medicine
DX: I48.91 Unspecified atrial fibrillation (principal); I42.9 Cardiomyopathy, unspecified; I10 Essential (primary) hypertension
CPT/HCPCS: 93010; 99214

== ENCOUNTER → 2024-07-02 14:49 | Outpatient (BNVA) | payer BC, SELFPAY | PROVIDERS: PCP Internal Medicine | DX: I48.91 Unspecified atrial fibrillation (principal); I42.9 Cardiomyopathy, unspecified; I10 Essential (primary) hypertension; Z79.01 Long term (current) use of anticoagulants | CPT/HCPCS: 93005 ==

== ENCOUNTER 2024-07-16 12:49 | Outpatient (AMB) | payer BC, SELFPAY ==
--- NOTE | 2024-07-16 13:19 | MHC.OFFVIS ---
Vital Signs 07/16/24 13:20 Height 5 ft 8 in Weight 202 lb 13.204 oz BMI 30.8 BP 172/102 H Blood Pressure Location Lt brachial Position Sitting Pulse 154 H Intake Visit Reasons: 2 wk f/up w/ekg Cloth Shrinking Machine Operator Required: Yes Cloth Shrinking Machine Operator Services: Cloth Shrinking Machine Operator Offered & Declined Cloth Shrinking Machine Operator Name: Niece will interpret Accompanied by: Nephew or Niece Allergies No Known Allergies Allergy (Verified 07/16/24 14:10) Medication List - Last Reconciled 07/16/24 by Fran Bedolla NP apixaban (Eliquis) 5 mg PO BID blood pressure monitor As directed clonazepam 0.5 mg PO BEDTIME dapagliflozin propanediol (Farxiga) 10 mg PO DAILY digoxin 0.125 mg See Protocol PO DAILY furosemide 40 mg PO DAILY metoprolol succinate ER 100 mg PO DAILY naproxen sodium (Aleve) 220 mg PO BEDTIME PRN sacubitril-valsartan 24-26 mg (Entresto) 1 tab PO BID HPI Comments Details: This is a 54-year-old male patient presenting for a follow-up visit. Patient has a history of AFib with RVR and cardiomyopathy. During his previous visit 2 weeks ago he was found to be in AFib with RVR and elevated blood pressure. The patient was accompanied by his niece who stated that she would take over his medication management as the patient has been noncompliant with his medications for unclear reasons in the past. Back in May, patient required an emergency department visit for similar symptoms during which he was treated with IV metoprolol and digoxin successfully reducing his heart rate. However, due to questions about his compliance with Eliquis, cardioversion was not performed. Over the past 2 weeks, the patient reports taking his medications as prescribed. However, it was noted that he was only taking 50 mg metoprolol instead of the prescribed 100 mg. The patient denies any symptoms of exertional chest pain, shortness of breath, palpitations, dizziness, fatigue, orthopnea, PND, leg edema, presyncope, or syncope. Additionally, patient reports that he has completely stopped drinking alcohol and does not use any stimulants or tobacco. [facility] Medical History Cardiomyopathy Atrial fibrillation with rapid ventricular response Excessive drinking alcohol Alcohol abuse Congestive heart failure Family History Father No problems noted. Mother No problems noted. Social History Alcohol intake: current Alcohol intake frequency: a few times a week Comment: 6 pack/one day/week Patient Tobacco Use Status: Never used Tobacco service: No Review of Systems Const Denies chills, Denies fatigue, Denies fever(s), Denies weight gain and Denies weight loss ENT Denies dizziness Card Denies chest pain, Denies leg edema, Denies lightheadedness, Denies palpitations, Reports dyspnea on exertion, Denies orthopnea and Denies other Resp Denies cough and Reports dyspnea on exertion GI Denies hematochezia and Denies change in stool character Musc Denies abnormal gait, Denies muscle weakness, Denies numbness, Denies radiating pain into limb and Denies tingling Neuro Denies abnormal gait, Denies dizziness, Denies numbness and Denies tingling Endo Denies fatigue and Denies palpitations Physical Exam Vital Signs: Last Vital Signs Pulse 154 H 07/16/24 13:20 BP 172/102 H 07/16/24 13:20 BMI result Body Mass Index 30.8 Const General: cooperative, healthy appearing, comfortable and no acute distress Orientation/consciousness: patient oriented x3 HEENT Head: Yes normal to inspection Neck Neck: Yes normal visual inspection, Yes trachea midline and Yes supple Chest Chest palpation & inspection: normal inspection of the chest Resp Effort & Inspection: normal respiratory effort Auscultation: clear to auscultation bilaterally, no crackles, no rales, no rhonchi and no wheezes Cardio Jugular venous distension: no JVD Palpation: normal PMI Rate: tachycardic Rhythm: abnormal rhythm irregularly irregular Heart sounds: S1 normal heart sound present, S2 normal heart sound present, no click, no gallops, no murmurs and no rubs Peripheral pulses: Peripheral pulses 2+ throughout GI Inspection: Yes normal to inspection Palpation (GI): Soft to palpation Auscultation: normal bowel sounds Skin General skin exam: no rashes or lesions noted Neuro General: patient oriented x3 Extrem General: Yes normal to inspection, No no pedal edema and No calf tenderness Psych Appearance: grossly normal Mental Status: mental status grossly normal Speech and movement: Normal speech and movement present Office Procedures EKG Details: EKG today shows AFib with RVR with PVCs, rate 154 beats per minute, possible right ventricular hypertrophy, nonspecific ST/T [place], [place]. [id number], Complete Assessment & Plan Assessment & Plan (1) Atrial fibrillation with rapid ventricular response: Code(s): I48.91 - Unspecified atrial fibrillation Category: Medical (2) Cardiomyopathy: Code(s): I42.9 - Cardiomyopathy, unspecified Category: Medical (3) Hypertension: Code(s): I10 - Essential (primary) hypertension Category: Medical Plan 08/14/2023-echo study at [facility] showed EF at 20-30% with severe global hypokinesis of the left ventricle, and mild dilation of the left than right atrium, with mild mitral regurgitation. Per med list, patient supposed to be on Farxiga, Lasix, Entresto, metoprolol, Eliquis, and digoxin. Patient has history of medication noncompliance but today he showed me each pill from the medication box and he showed me that he has been taking all his medications as prescribed with the exception of metoprolol which he has been taking 50 mg instead of the 100 mg daily. EKG today continues to show AFib with a RVR. Patient's blood pressure also remains elevated at 170/102. Continues to also deny have any symptoms. 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 The patient's niece was present for the appointment and confirmed that he has been compliant with his medications. Given the persistent elevated blood pressures in AFib with RVR, I will send the patient to the emergency room for rate management. The ER has been notified. We will follow-up after the patient's discharge from the hospital. This note was generated using voice recognition software. While every effort has been made to ensure accuracy and proper convention manager, there may be occasional errors that could affect the content or meaning of the described symptoms. Orders: Orders AMB EKG-In Office Today I48.91 - Unspecified atrial fibrillation Coding Level of Care Code Est Pt Level 4 (75138) Complex EM visit Add On G2211 Diagnoses Atrial fibrillation with rapid ventricular response I48.91 Cardiomyopathy I42.9 Hypertension I10 CPT Codes EKG - CPT: 82654-[id number], Complete ([id number]) Time Spent (min) 35 Comment Time spent in reviewing the chart, test results, assessment, counseling and documentation.
[2024-07-16 13:20] VITALS: BP 172/102; PULSE 154; BMI 30.8
--- OUTSIDE RECORDS SUMMARY | 2024-07-16 15:26 | XMS_ITS | Clinical Summary ---
Author Organization [employer] Address [address] [facility] [address] [place] [address] Care Team Providers Care Museum Assistant Name Role Phone Dinesh Hernandez MD Primary [...] to vision and dentist Follow up on hospital education coordinator and neurologist Covcuauhtemoc and Pneumococcal vaccine Encounter [...] eliquis, reviewed risk, will send renewal to [facility] pharm Alcohol use disorder 02/02/2024 Tremors [...] of sacubitril-Valsartan 49-51 Follow up appointment with hospital education coordinator Dietary counseling Patient counseling on CHF Assessment [...] than 2 months, has not followed with hospital education coordinator, not clear why he is on those medication, will request er/hospital discharge, apperently they were started back on august Encounters Date Type Department Care Team Description 07/16/2024 Orders Only GENERIC EXTERNAL DATA DEPARTMENT Provider, Generic External Data 06/07/2024 10:30 AM EST Telemedicine [facility] [address] [place] [address] Dinesh Hernandez MD Primary hypertension (Primary Dx); Chronic systolic congestive heart failure (CMS/HCC); Permanent atrial fibrillation (CMS/HCC); Tremors of nervous system 06/07/2024 Travel 06/06/2024 Telephone [facility] [address] [place] [address] Dinesh Hernandez MD chart prep 05/22/2024 Telephone [facility] [address] [place] [address] Dinesh Hernandez MD No Show 05/21/2024 Telephone [facility] [address] [place] [address] Dinesh Hernandez MD Chart Prep from Last [...] is your housing situation today? I have kulwantrobby nassar [address] you [...] Upcoming Encounters Date Type Department Care Team ([facility] st Contact Info) Description 07/30/2024 9:30 AM EDT Office Visit [facility] [address] [place] [address] Dinesh Hernandez MD [address] [place] [address] Health Maintenance Due Date Last Done Comments [...] Procedure Name Priority Date/Time Associated Diagnosis Comments MAGNESIUM Routine 07/16/2024 2:39 PM EDT BASIC METABOLIC PANEL Routine 07/16/2024 2:39 PM EDT HEPATIC FUNCTION PANEL Routine 07/16/2024 2:39 PM EDT HIGH SENSITIVITY TROPONIN I Routine 07/16/2024 2:39 PM EDT B TYPE NATRIURETIC PEPTIDE (BNP) Routine 07/16/2024 2:39 PM EDT CBC WITH AUTO DIFFERENTIAL Routine 07/16/2024 2:39 PM EDT HEPATITIS C AB W/REFL TO HCV RNA, QN, PCR Routine 02/20/2024 4:04 PM EST Primary hypertension HIV 1/2 ANTIGEN/ANTIBODY, FOURTH GENERATION W/RFL Routine 02/20/2024 4:04 PM EST Primary hypertension LIPID PANEL, STANDARD Routine 02/20/2024 4:04 PM EST Primary hypertension from Last 3 Months or Most Recently Relevant to Health Maintenance Results * High Sensitivity Troponin I (07/16/2024 2:39 PM EDT) [facility] TROPONIN I HIGH SENSITIVITY 24.4 <3.5 - 35.0 ng/L [facility] Comment:The [place] high sens itivity Troponin-I results should beused in conjunction with other diagnostic information suchas ECG, clinical observations and information, and patientsymptoms to aid in the diagnosis of [place]. 07/16/2024 2:39 PM EDT 07/16/2024 2:39 PM EDT us Generic External Data Provider LAB BLOOD ORDERAB LES Final Result [facility] [address] [place] [phone] * (ABNORMAL) CBC auto differential (07/16/2024 2:39 PM EDT) [facility] White Blood Count 6.7 4.8 - 10.8 X10*3/uL [facility] Red Blood Count 5.29 4.60 - 5.80 X10*6/uL [facility] Hemoglobin 16.1 14.0 - 18.0 g/dl [facility] Hematocrit 47.1 42.0 - 52.0 % [facility] Mean Corpuscular Volume 89.0 80.0 - 98.0 fL [facility] Mean Corpuscular Hemoglobin 30.4 27.0 - 33.0 pg [facility] Mean Corpuscular HGB Conc 34.2 31.0 - 36.0 g/dl [facility] Red Cell Distribution Width 18.6(H) 11.0 - 16.0 % [facility] Platelet Count 150(L) 160 - 400 X10*3/uL [facility] Mean Platelet Volume 10.9 9.4 - 12.4 fL [facility] Neutrophils Percent Auto 56.1 45 - 73 % [facility] Imm Gran Pct Auto 0.3 0.0 - 0.4 % [facility] Lymphocytes Percent Auto 13.3(L) 20 - 40 % [facility] Monocytes Percent Auto 10.2 2 - 11 % [facility] Eosinophils Percent Auto 18.8(H) 0 - 4 % [facility] Basophils Percent Auto 1.3 0 - 2 % [facility] NRBC Pct Auto 0.0 0.0 - 0.2 /100WBC [facility] Neutrophils Absolute Auto 3.8 2.0 - 8.3 x10*3/uL [facility] Imm Gran Abs Auto 0.02 0.00 - 0.03 X10*3/uL [facility] Lymphocytes Absolute Auto 0.9(L) 1.2 - 4.9 X10*3/uL [facility] Monocytes Absolute Auto 0.7 0.1 - 1.2 X10*3/uL [facility] Eosinophils Absolute Auto 1.3(H) 0.0 - 0.4 X10*3/uL [facility] Basophils Absolute Auto 0.1 0.0 - 0.2 X10*3/uL [facility] NRBC Abs Auto 0.000 0.0 - 0.012 X10*3/uL [facility] 07/16/2024 2:39 PM EDT 07/16/2024 2:39 PM EDT us Generic External Data Provider LAB BLOOD ORDERAB LES Final Result [facility] [address] [place] [phone] * (ABNORMAL) B Type Natriuretic Peptide (BNP) (07/16/2024 2:39 PM EDT) B Type Natriuretic Peptide 546(H) <100 pg/mL [facility] 07/16/2024 2:39 PM EDT 07/16/2024 2:39 PM EDT us Generic External Data Provider LAB BLOOD ORDERAB LES Final Result Performing Organization Address [facility]/ZIP Co de Phone Number [facility] [address] [place] [phone] * Hepatitis C Antibody with Reflex to HCV, RNA, Quantitative, Real-Time PCR (02/20/2024 4:04 PM EST) Hepatitis C Antibody Nonreactive Nonreactive [facility] Comment:Antibodies to HCV no t detected; does not exclude early acuteHCV infection. Blood Venous blood specimen / Unknown 02/20/2024 4:04 PM EST 02/20/2024 5:56 PM EST us Dinesh Engel MD LAB BLOOD ORDERABL ES Final Result Performing Organization Address [facility] Co de Phone Number [facility] [address] [place] [phone] * HIV-1/2 Antigen and Antibodies, Fourth Generation, with Reflexes (02/20/2024 4:04 PM EST) HIV AB/AG Nonreactive Nonreactive [facility] Comment:HIV-1 p24 Ag and/or HIV-1/HIV-2 Ab not detected.A test result that is nonreactive does not exclude thepossibility of exposure to or infection with HIV-1 and/orHIV-2. Nonreactive results in this assay for individualswith prior exposure to HIV-1 and/or HIV-2 may be due toantigen and antibody levels that are below the limit ofdetection of this assay.The [employer] HIV Ag/Ab Combo assay result andsupplemental assay results should be interpreted inconjunction with the patient's clinical presentation,history and other laboratory results. If the results areinconsistent with clinical evidence, additional testing issuggested to confirm the result. Blood Venous blood specimen / Unknown 02/20/2024 4:04 PM EST 02/20/2024 5:56 PM EST us Dinesh Engel MD LAB BLOOD ORDERABL ES Final Result Performing Organization Address [facility] Co de Phone Number [facility] [address] [place] [phone] * (ABNORMAL) Lipid Panel, Standard (02/20/2024 4:04 PM EST) Triglycerides 57 <150 mg/dL [facility] Comment:Desirable Triglyceri de: less than 150 mg/dLBorderline High Triglyceride 150-199 mg/dLHigh Triglyceride: 200-499 mg/dLVery High Triglyceride: greater than or equal to 5OO mg/dL Cholesterol 123 <200 mg/dL [facility] Comment:Desirable Cholestero l: less than 200 mg/dLBorderline High Cholesterol: 200-239 mg/dLHigh Cholesterol: greater than 239 mg/dL LDL Cholesterol Calculated 80 <100 mg/dL [facility] Comment:Desirable LDL: less than 100 mg/dLNear Optimal/Above Optimal LDL: 110- 129 mg/dLBorderline High LDL: 130-159 mg/dLHigh LDL: 160-189 mg/dLVery High LDL: greater than or equal to 190 mg/dL HDL Cholesterol 32(L) >40 mg/dL [facility] Comment:Desirable HDL: great er than 40 mg/dL Note: This HDL assay may give artificially low results in patients with liver disease. Blood Venous blood specimen / Unknown 02/20/2024 4:04 PM EST 02/20/2024 5:56 PM EST us Dinesh Engel MD LAB BLOOD ORDERABL ES Final Result Performing Organization Address [facility]/ZIP Co de Phone Number [facility] [address] [place] [phone] from Last 3 Months or Most Recently Relevant to Health Maintenance Insurance [facility] H[facility] Care Teams Museum Assistant Relationship Specialty Start Date End Date Dinesh Hernandez MD [address] [place] [phone] PCP - General Internal Medicine 01/23/24
--- OUTSIDE RECORDS SUMMARY | 2024-07-16 15:26 | XMS_ITS | Encounter Summary ---
Author Organization [employer] Address [address] [facility] [address] [place] [address] Care Team Providers Care Flavorings Compounder Name Role Phone Dinesh Hernandez MD Primary Care Prov ider Encounter Details Date Type Department Care Team (Late st Contact Info) Description 07/16/2024 Orders Only GENERIC EXTERNAL DATA DEPARTMENT Provider, Generic External Data Social History Tobacco Use Types Packs/Day Years [...] Upcoming Encounters Date Type Department Care Team ([facility] st Contact Info) Description 07/30/2024 9:30 AM EDT Office Visit [facility] [address] [place] [address] Dinesh Hernandez MD [address] [place] [address] Pending Results Name Type Priority Associated Diagnoses Date /Time Hepatic Function Panel Lab Routine 2:39 PM EDT Basic Metabolic Panel Lab Routine 11/2024 2:39 PM EDT Magnesium Lab Routine 07/16/2024 2:3 9 PM EDT documented as of this encounter Procedures Procedure Name Priority Date/Time Associated Diagnosis Comments HIGH SENSITIVITY TROPONIN I Routine 07/16/2024 2:39 PM EDT CBC WITH AUTO DIFFERENTIAL Routine 07/16/2024 2:39 PM EDT B TYPE NATRIURETIC PEPTIDE (BNP) Routine 07/16/2024 2:39 PM EDT MAGNESIUM Routine 07/16/2024 2:39 PM EDT HEPATIC FUNCTION PANEL Routine 07/16/2024 2:39 PM EDT BASIC METABOLIC PANEL Routine 07/16/2024 2:39 PM EDT documented in this encounter Results * High Sensitivity Troponin I (07/16/2024 2:39 PM EDT) TROPONIN I HIGH SENSITIVITY 24.4 <3.5 - 35.0 ng/L [facility] Comment:The [place] high sens itivity Troponin-I results should beused in conjunction with other diagnostic information suchas ECG, clinical observations and information, and patientsymptoms to aid in the diagnosis of [place]. 07/16/2024 2:39 PM EDT 07/16/2024 2:39 PM EDT us Generic External Data Provider LAB BLOOD ORDERAB LES Final Result Performing Organization Address [facility]/ZIP Co de Phone Number [facility] [address] [place] [phone] * (ABNORMAL) B Type Natriuretic Peptide (BNP) (07/16/2024 2:39 PM EDT) [facility] B Type Natriuretic Peptide 546(H) <100 pg/mL [facility] 07/16/2024 2:39 PM EDT 07/16/2024 2:39 PM EDT Generic External Data Provider LAB BLOOD ORDERAB LES Final Result Performing Organization Address [facility] de Phone Number [facility] [address] [place] [phone] * (ABNORMAL) CBC auto differential (07/16/2024 2:39 PM EDT) [facility] White Blood Count 6.7 4.8 - 10.8 X10*3/uL [facility] Red Blood Count 5.29 4.60 - 5.80 X10*6/uL [facility] Hemoglobin 16.1 14.0 - 18.0 g/dl [facility] Hematocrit 47.1 42.0 - 52.0 % [facility] Mean Corpuscular Volume 89.0 80.0 - 98.0 fL [facility] Mean Corpuscular Hemoglobin 30.4 27.0 - 33.0 pg [facility] Mean Corpuscular HGB Conc 34.2 31.0 - 36.0 g/dl [facility] Red Cell Distribution Width 18.6(H) 11.0 - 16.0 % [facility] Platelet Count 150(L) 160 - 400 X10*3/uL [facility] Mean Platelet Volume 10.9 9.4 - 12.4 fL [facility] Neutrophils Percent Auto 56.1 45 - 73 % [facility] Imm Gran Pct Auto 0.3 0.0 - 0.4 % [facility] Lymphocytes Percent Auto 13.3(L) 20 - 40 % [facility] Monocytes Percent Auto 10.2 2 - 11 % [facility] Eosinophils Percent Auto 18.8(H) 0 - 4 % [facility] Basophils Percent Auto 1.3 0 - 2 % [facility] NRBC Pct Auto 0.0 0.0 - 0.2 /100WBC [facility] Neutrophils Absolute Auto 3.8 2.0 - 8.3 x10*3/uL [facility] Imm Gran Abs Auto 0.02 0.00 - 0.03 X10*3/uL [facility] Lymphocytes Absolute Auto 0.9(L) 1.2 - 4.9 X10*3/uL [facility] Monocytes Absolute Auto 0.7 0.1 - 1.2 X10*3/uL [facility] Eosinophils Absolute Auto 1.3(H) 0.0 - 0.4 X10*3/uL [facility] Basophils Absolute Auto 0.1 0.0 - 0.2 X10*3/uL [facility] NRBC Abs Auto 0.000 0.0 - 0.012 X10*3/uL [facility] 07/16/2024 2:39 PM EDT 07/16/2024 2:39 PM EDT us Generic External Data Provider LAB BLOOD ORDERAB LES Final Result [facility] [address] [place] [phone] documented in this encounter Visit Diagnoses Not on filedocumented in this encounter Additional Health Concerns Assessment Noted Time PHQ-9 Depression Total Score: 0 03/18/20 24 9:28 AM EST documented as of this encounter Care Teams Flavorings Compounder Relationship Specialty Start Date End Date Dinesh Hernandez MD [address] [place] [phone] PCP - General Internal Medicine 01/23/24 documented as of this encounter
== END 2024-07-16 14:28 | disposition home or self-care (01) ==
LOC: HO.HCS 12:49
PROVIDERS: PCP Internal Medicine
DX: I48.91 Unspecified atrial fibrillation (principal); I42.9 Cardiomyopathy, unspecified; I10 Essential (primary) hypertension
CPT/HCPCS: 93010; 99214

== ENCOUNTER 2024-07-16 14:04 | Emergency (ER) | payer BC, SELFPAY ==
--- NOTE | 2024-07-16 14:05 | ECG_ITS ---
Test Reason : AFIB Blood Pressure : */* mmHG Vent. Rate : 143 BPM Atrial Rate : * BPM P-R Int : * ms QRS Dur : 86 ms QT Int : 258 ms P-R-T Axes : * 93 54 degrees QTcB Int : 398 ms Atrial fibrillation with rapid ventricular response Rightward axis Abnormal ECG When compared with ECG of 29-May-2024 14:52, No significant change was found Referred By: Generic ED Physician Electronically Signed By: Nathan Alston
[2024-07-16 14:08] VITALS: BP 149/82; PULSE 139; RESP 18; TEMP 36.8; O2SAT 97; BMI 27.8
[2024-07-16 14:15] VITALS: PULSE 132
--- NOTE | 2024-07-16 14:17 | PC.NURSE ---
Pt coming from [facility] for Afib RVR, pt has been seen here recently for the same thing. He is suppose to be taking 100mg of his metoprolol but has only been taking 50mg. Pt denies any complaints at this time, denies SOB/CP Pt reporting anxiety at this time having to be in the ED. He is able to talk in full sentences, pt denies any ETOH/drug use. IV placed at this time, awaiting provider orders.
[2024-07-16] MEDS: Metoprolol Tartrate 5 MG/5 ML VIAL IVPUSH (14:21)
[2024-07-16 14:29] VITALS: BP 149/105; PULSE 100; RESP 18; O2SAT 95
[2024-07-16 14:33] VITALS: BP 149/105; PULSE 100
[2024-07-16] MEDS: Metoprolol Succinate ER 50 MG TAB.ER.24H PO (14:33)
[2024-07-16 14:41] LABS: MANUAL DIFF FLAG NO
[2024-07-16 14:45] LABS: Basophils Absolute Auto 0.1 X10*3/uL (0.0-0.2); Basophils Percent Auto 1.3 % (0-2); Eosinophils Absolute Auto 1.3 X10*3/uL (0.0-0.4); Eosinophils Percent Auto 18.8 % (0-4); Hematocrit 47.1 % (42.0-52.0); Hemoglobin 16.1 g/dl (14.0-18.0); Imm Gran Abs Auto 0.02 X10*3/uL (0.00-0.03); Imm Gran Pct Auto 0.3 % (0.0-0.4); Lymphocytes Absolute Auto 0.9 X10*3/uL (1.2-4.9); Lymphocytes Percent Auto 13.3 % (20-40); Mean Corpuscular HGB Conc 34.2 g/dl (31.0-36.0); Mean Corpuscular Hemoglobin 30.4 pg (27.0-33.0); Mean Platelet Volume 10.9 fL (9.4-12.4); Monocytes Absolute Auto 0.7 X10*3/uL (0.1-1.2); Monocytes Percent Auto 10.2 % (2-11); Neutrophils Absolute Auto 3.8 x10*3/uL (2.0-8.3); Neutrophils Percent Auto 56.1 % (45-73); Platelet Count 150 X10*3/uL (160-400); Red Blood Count 5.29 X10*6/uL (4.60-5.80); Red Cell Distribution Width 18.6 % (11.0-16.0); White Blood Count 6.7 X10*3/uL (4.8-10.8)
--- NOTE | 2024-07-16 15:00 | ED_ITS ---
HPI - Arrhythmia/Palpitations General Chief Complaint: Arrhythmia/Palpitations Stated Complaint: AFIB Time Seen by Provider: 07/16/24 14:12 Source: patient, family and old records reviewed Mode of arrival: ambulatory Limitations: no limitations History of Present Illness ED Provider: KURT NORMAN narrative: 54 yo male with PMH of HTN, cardiomyopathy, PAF on eliquis dilt, metoprolol - he is suppose to be taking Toprol 100mg daily but he has only been taking old 50mg metoprolol x 1. He went to cardiology office today and was in afib with RVR. He states he feels fine other than anxiety. He has no CP/SOB, n/v/d, dizziness. He states he takes all other medications. His niece is here and is now helping him get med compliant - he was referred here for rate control by cardiology. complaint: atrial fibrillation Onset (ago): unknown Duration: intermittent Severity: moderate Context: occurred during rest Arrhythmia history: atrial fibrillation Associated symptoms: denies other symptoms Related Data Home Medications ?Medication ?Instructions ?Recorded ?Confirmed apixaban 5 mg tablet (Eliquis) 5 mg PO BID 05/29/24 07/16/24 clonazepam 0.5 mg tablet 0.5 mg PO BEDTIME 05/29/24 07/16/24 dapagliflozin propanediol 10 mg 10 mg PO DAILY 05/29/24 07/16/24 tablet (Farxiga) furosemide 40 mg tablet 40 mg PO DAILY 05/29/24 07/16/24 metoprolol succinate 100 mg 100 mg PO DAILY 05/29/24 07/16/24 tablet,extended release 24 hr naproxen sodium 220 mg tablet 220 mg PO BEDTIME PRN Muscle Pain 05/29/24 07/16/24 (Aleve) sacubitril 24 mg-valsartan 26 mg 1 tab PO BID 05/29/24 07/16/24 tablet (Entresto) Previous Rx's ?Medication ?Instructions ?Recorded digoxin 125 mcg (0.125 mg) tablet 0.125 mg PO DAILY #90 tabs 05/30/24 blood pressure monitor #1 ea 07/02/24 Allergies Allergy/AdvReac Type Severity Reaction Status Date / Time No Known Allergies Allergy Verified 07/16/24 14:10 Review of Systems 2 Review of Systems: Constitutional : No Fever, No Chills ENT/Mouth : No Ear Pain, No Nasal Congestion, No sore throat Eyes: No Eye Pain, No Swelling, No Redness Cardiovascular : No Chest Pain, No SOB Respiratory : No Cough, No Sputum, No Dyspnea Gastrointestinal : No Nausea, No Vomiting, No Diarrhea, No Hematochezia, No Melena Genitourinary : No Dysuria, No Urinary Frequency, No Hematuria Musculoskeletal : No Myalgias Skin : No Skin Lesions, No rash Neuro : No Weakness, No Numbness, No Paresthesias, No Dizziness, No Headache Psych : positive Anxiety, no Depression All other systems reviewed and are negative [facility] Past Medical History Attestation statement: The following information was validated with the patient. Source: old records reviewed Medical History Cardiomyopathy Atrial fibrillation with rapid ventricular response Excessive drinking alcohol Alcohol abuse Congestive heart failure Family History Family History Father No problems noted. Mother No problems noted. Social History Social History Alcohol intake: current Alcohol intake frequency: a few times a week Comment: 6 pack/one day/week Patient Tobacco Use Status: Never used Tobacco Smoked in Last 30 Days: No Use of substances other than those prescribed or required for medical reasons: No Advance Directives: Yes Advance Directives Information Provided: Yes Advance Directives on File: No service: No Physical Exam 2 Vital Signs: Vital Signs: Last Vital Signs Temp 98.3 F 07/16/24 14:08 Pulse 96 07/16/24 15:07 Resp 16 07/16/24 15:07 BP 129/94 H 07/16/24 15:07 Pulse Ox 95 07/16/24 15:07 O2 Del Method Room Air 07/16/24 15:07 BMI result Body Mass Index 27.8 Appearance: Alert. Oriented X3. No acute distress. Eyes: Pupils equal, round and reactive to light. ENT: Pharynx normal. Neck: Normal inspection. Neck supple. CVS: tachycardic and irregular heart rate and rhythm. Pulses normal. Respiratory: No respiratory distress. Breath sounds normal. Abdomen: Soft and nontender. Skin: Skin warm and dry. Normal skin color. Normal skin turgor. Extremities: No lower extremity edema. Neuro: Oriented X 3. No motor deficit. No sensory deficit. CN2-12 intact Course Course Course Narrative: HR under 100 for an hour now he is very eager to go home stable for DC Medications Administered Discontinued Medications Generic Name Dose Route Start Last Admin Trade Name Rohith PRN Reason Stop Dose Admin Metoprolol Succinate 50 mg 07/16/24 14:30 07/16/24 14:33 Metoprolol Succinate Er 50 Mg Tab.Er.24h PO 07/16/24 14:31 50 mg ONCE ONE Administration Protocol Metoprolol Tartrate 5 mg 07/16/24 14:18 07/16/24 14:21 Metoprolol Tartrate 5 Mg/5 Ml Vial IVPUSH 07/16/24 14:19 5 mg ONCE ONE Administration Protocol Metoprolol Tartrate 2.5 mg 07/16/24 15:14 07/16/24 15:22 Metoprolol Tartrate 5 Mg/5 Ml Vial IVPUSH 07/16/24 15:15 2.5 mg ONCE ONE Administration Protocol Medical Decision Making Medical Decision Making [facility] Narrative: 54 yo male with PMH of HTN, cardiomyopathy, PAF on eliquis dilt, metoprolol here with afib and RVR but asymptomatic due to med confusion and non compliance at this time no CP/SOB and no dizziness/edema - will obtain lytes, give rest of metoprolol and start on IV lopressor. Niece here and patient now has help with his medications Differential Diagnosis Differential Diagnoses: The differential diagnosis associated with the presentation includes non compliance, lyte abnormality, afib with RVR Admission/Observation Consideration of admission/observation: Escalation of care including admission/observation considered HR below 100 okay to DC asymptomatic BNP and trop at baseline LFTs at baseline Lab Data [facility] Lab Attestation statement: I reviewed the patient's lab results. 07/16/24 14:39 07/16/24 14:39 Labs: Lab Results 07/16/24 Range/Units 14:39 WBC 6.7 (4.8-10.8) X10*3/uL RBC 5.29 (4.60-5.80) X10*6/uL Hgb 16.1 (14.0-18.0) g/dl Hct 47.1 (42.0-52.0) % MCV 89.0 (80.0-98.0) fL MCH 30.4 (27.0-33.0) pg MCHC 34.2 (31.0-36.0) g/dl RDW 18.6 H (11.0-16.0) % Plt Count 150 L (160-400) X10*3/uL MPV 10.9 (9.4-12.4) fL Immature Gran % (Auto) 0.3 (0.0-0.4) % Neut % (Auto) 56.1 (45-73) % Lymph % (Auto) 13.3 L (20-40) % [place] % (Auto) 10.2 (2-11) % Eos % (Auto) 18.8 H (0-4) % Baso % (Auto) 1.3 (0-2) % Lymph # (Auto) 0.9 L (1.2-4.9) X10*3/uL [place] # (Auto) 0.7 (0.1-1.2) X10*3/uL Eos # (Auto) 1.3 H (0.0-0.4) X10*3/uL Baso # (Auto) 0.1 (0.0-0.2) X10*3/uL Abs Immat Gran (auto) 0.02 (0.00-0.03) X10*3/uL Absolute Neuts (auto) 3.8 (2.0-8.3) x10*3/uL Absolute Nucleated RBC 0.000 (0.0-0.012) X10*3/uL Nucleated RBC % (auto) 0.0 (0.0-0.2) /100WBC Sodium 141 (135-145) mmol/L Potassium 4.5 (3.3-5.1) mmol/L Chloride 107 (96-108) mmol/L Carbon Dioxide 23 (22-29) mmol/L Anion Gap 16 (12-20) BUN 19 H (9-16) mg/dL Creatinine 0.89 (0.5-1.4) mg/dL Estim Creat Clear Calc 104.1 Estimated GFR > 60 Random Glucose 86 (60-115) mg/dL Calcium 10.0 D (8.4-10.2) mg/dL Magnesium 2.1 (1.6-2.6) mg/dL Total Bilirubin 2.0 H (0.0-1.0) mg/dL Direct Bilirubin 0.9 H (0.0-0.5) mg/dL AST 43 H (5-37) U/L ALT 38 (0-40) U/L Troponin I High Sens 24.4 (<3.5-35.0) ng/L B-Natriuretic Peptide 546 H (<100) pg/mL Total Protein 9.1 H (6.5-8.0) g/dL Albumin 4.4 (3.5-5.0) g/dL Independent Interpretation I performed an independent interpretation of an: EKG Interpretation: Rate: 143 Rhythm: afib Stanley: normal Normal QRS complex. ST T wave : no RAFITA, rapid qTC: 398 prior studies: afib with RVR The study has been interpreted contemporaneously by me. . Independent Historian Clinical information obtained from an independent historian. History obtained from or confirmed by: Other (family) External Record Review External record reviewed: Inpatient record and Outpatient record Prescription Management I considered prescription management with: Other Critical Care Time Critical Care Time Critical Care Time: Yes Total Critical Care Time: 45 Attestation: Time is exclusive of separately billable procedures. Time includes: direct patient care, patient reassessment, coordination of patient care, interpretation of data (laboratory data, pulse oximetry, review of patient's medical records, repeat IV lopressor for rapid afib and documentation of patient care. Procedures excluded from critical care time: central intravenous line placement and electrocardiography. Discharge Plan Discharge Clinical Impression: Atrial fibrillation with rapid ventricular response Patient Disposition: Home, Self-Care Instructions: A-fib (Atrial Fibrillation) (ED) Additional Instructions: labs reassuring next dose of metoprolol is tomorrow AM you should only be taking the 100mg daily throw away the 50mg - return for any worsening symptoms or concerns keep your regular appointments Prescriptions: No Action naproxen sodium [Aleve] 220 mg Tablet 220 mg PO BEDTIME PRN (Reason: Muscle Pain) clonazepam 0.5 mg tablet 0.5 mg PO BEDTIME metoprolol succinate 100 mg tablet extended release 24 hr 100 mg PO DAILY Eliquis 5 mg tablet 5 mg PO BID dapagliflozin propanediol [Farxiga] 10 mg tablet 10 mg PO DAILY sacubitril-valsartan [Entresto] 24-26 mg tablet 1 tab PO BID digoxin 125 mcg (0.125 mg) Tablet 0.125 mg PO DAILY Qty: 90 0RF Protocol: Hold for HR <: HOLD for HR < : 60 (DME) blood pressure monitor Kit See Rx Instructions .Route Qty: 1 0RF Rx Instructions: As directed furosemide 40 mg tablet 40 mg PO DAILY Print Language: Canadian
[2024-07-16 15:07] VITALS: BP 129/94; PULSE 96; RESP 16; O2SAT 95
[2024-07-16 15:19] LABS: B Type Natriuretic Peptide 546 pg/mL (<100)
[2024-07-16 15:20] LABS: Troponin-I High Sensitivity 24.4 ng/L (<3.5-35.0)
[2024-07-16 15:22] LABS: Alanine Aminotransferase 38 U/L (0-40); Albumin Level 4.4 g/dL (3.5-5.0); Anion Gap 16 (12-20); Aspartate Amino Transferase 43 U/L (5-37); Bilirubin Direct 0.9 mg/dL (0.0-0.5); Blood Urea Nitrogen 19 mg/dL (9-16); Carbon Dioxide 23 mmol/L (22-29); Chloride 107 mmol/L (96-108); Creatinine Clr Calc Pharmacy 104.1; Estimated Glomerular Filt Rate > 60; Glucose Random 86 mg/dL (60-115); Magnesium 2.1 mg/dL (1.6-2.6); Potassium 4.5 mmol/L (3.3-5.1); Sodium 141 mmol/L (135-145); Total Protein 9.1 g/dL (6.5-8.0)
[2024-07-16] MEDS: Metoprolol Tartrate 5 MG/5 ML VIAL 2.5 MG IVPUSH (15:22)
[2024-07-16 16:21] VITALS: BP 129/80; PULSE 98; RESP 18; TEMP 36.6; O2SAT 96
[2024-07-16 16:45] LABS: Alkaline Phosphatase 170 U/L (39-117)
== END 2024-07-16 16:22 | disposition home or self-care (01) ==
PROVIDERS: Emergency Provider Emergency Medicine; PCP Internal Medicine
DX: I48.20 Chronic atrial fibrillation, unspecified (principal); F41.9 Anxiety disorder, unspecified; Z79.01 Long term (current) use of anticoagulants
CPT/HCPCS: 36415; 80048; 80076; 83735; 83880; 84484; 85025; 93005; 96374; 96376; 99284; 99285

== ENCOUNTER 2024-09-18 14:59 | Outpatient (AMB) | payer OTHER, SELFPAY ==
--- NOTE | 2024-09-18 15:04 | MHC.OFFVIS ---
Vital Signs 09/18/24 15:06 Height 6 ft Weight 194 lb 0.108 oz BMI 26.3 BP 120/76 Blood Pressure Location Lt brachial Position Sitting Intake Visit Reasons: f/up-[facility] [place] Intake Note: Follow-up [facility] [place] [facility] [place] with ekg states feeling better but dizzy and weak at times has stopped taking many of this med's on his own Millinery Designer Required: No Relief Charge Nurse: Relief Charge Nurse Present Accompanied by: Nephew or Niece Allergies No Known Allergies Allergy (Verified 07/16/24 14:10) Medication List - Last Reconciled 09/18/24 by Fran Bedolla NP blood pressure monitor As directed clonazepam 0.5 mg PO BEDTIME digoxin 0.125 mg See Protocol PO DAILY furosemide 40 mg PO DAILY metoprolol succinate ER 100 mg PO DAILY HPI Comments Details: This is a 54-year-old male patient coming in for a follow-up visit. Patient with a history of AFib with RVR, hypertension and cardiomyopathy. Patient has been having a lot of issues with noncompliance with his medication regimen. Previously he was in AFib with RVR and elevated blood pressures during which time we noticed patient was not taking his medications as prescribed. Later when he returned for an office visit, patient continued to be in AFib with a RVR and therefore was sent to the ER for rate management. Today, patient reports feeling well overall and hence he has stopped taking most of his medications including Eliquis, Farxiga, Entresto, and amlodipine. Patient is accompanied by his niece who states is the medical personnel research psychologist for the patient and has been there the last 2 visits but patient has been noncompliant either way. Patient denies any cardiac symptoms of chest pain, shortness of breath, palpitations, dizziness, fatigue, orthopnea, PND, leg edema, presyncope or syncope. Patient states that he is not using any alcohol, tobacco, or stimulants. [facility] Medical History Cardiomyopathy Atrial fibrillation with rapid ventricular response Excessive drinking alcohol Alcohol abuse Congestive heart failure Family History Father No problems noted. Mother No problems noted. Social History Alcohol intake: current Alcohol intake frequency: a few times a week Comment: 6 pack/one day/week Patient Tobacco Use Status: Never used Tobacco service: No Review of Systems Const Denies chills, Denies fatigue, Denies fever(s), Denies frequent falls, Denies weakness, Denies weight gain and Denies weight loss ENT Denies dizziness Card Denies chest pain, Denies leg edema, Denies lightheadedness, Denies palpitations, Denies dyspnea, Denies dyspnea on exertion, Denies orthopnea and Denies other (loss of consciousness) Resp Denies cough, Denies dyspnea and Denies dyspnea on exertion GI Denies hematochezia and Denies change in stool character Musc Denies abnormal gait, Denies muscle weakness, Denies numbness, Denies radiating pain into limb and Denies tingling Neuro Denies abnormal gait, Denies dizziness, Denies frequent falls, Denies numbness, Denies tingling and Denies weakness Endo Denies fatigue and Denies palpitations Physical Exam Vital Signs: Last Vital Signs BP 120/76 09/18/24 15:06 BMI result Body Mass Index 26.3 Const General: cooperative, healthy appearing, comfortable and no acute distress Orientation/consciousness: patient oriented x3 HEENT Head: Yes normal to inspection Neck Neck: Yes normal visual inspection, Yes trachea midline and Yes supple Chest Chest palpation & inspection: normal inspection of the chest Resp Effort & Inspection: normal respiratory effort Auscultation: clear to auscultation bilaterally, no crackles, no rales, no rhonchi and no wheezes Cardio Jugular venous distension: no JVD Palpation: normal PMI Rate: regular rate Rhythm: abnormal rhythm irregularly irregular Heart sounds: S1 normal heart sound present, S2 normal heart sound present, no click, no gallops, no murmurs and no rubs Peripheral pulses: Peripheral pulses 2+ throughout GI Inspection: Yes normal to inspection Palpation (GI): Soft to palpation Auscultation: normal bowel sounds Skin General skin exam: no rashes or lesions noted Neuro General: patient oriented x3 Extrem General: Yes normal to inspection, No no pedal edema and No calf tenderness Psych Appearance: grossly normal Mental Status: mental status grossly normal Speech and movement: Normal speech and movement present Office Procedures EKG Details: EKG today shows AFib, rate 89 beats per minute, rightward axis, nonspecific STT wave, [place]. [id number], Complete Assessment & Plan Assessment & Plan (1) Cardiomyopathy: Code(s): I42.9 - Cardiomyopathy, unspecified Category: Medical Plan: 08/14/2023-echo study at [facility] showed EF at 20-30% with severe global hypokinesis of the left ventricle, and mild dilation of the bilaterally atrium, and mild mitral regurgitation. Given this, patient was requested to lay low and take only from his intensive labored work. However, patient has been noncompliant with all of his medications. Patient does not have any clear reasons to why they have not been continued. Later of the more investigation, patient states that the Entresto and the Eliquis has been expensive for him. Patient will keep his appointment for the repeat echo. Emphasized on the need for med compliance and to continue with Farxiga, amlodipine, Eliquis, digoxin, Lasix, metoprolol, and Entresto. Discussed in detail the signs and symptoms for heart failure. Patient's understands the risk for sudden cardiac with the situation, verbalizes understanding. Advised low-salt diet, 1.5-2 L fluid restriction, and daily weight monitoring. Recommended pillbox to avoid confusion. We will arrange for coupon for the Entresto and Eliquis. (2) Atrial fibrillation with rapid ventricular response: Code(s): I48.91 - Unspecified atrial fibrillation Category: Medical Plan: As above. Patient is in AFib again, this time rate is controlled. Patient has been taking metoprolol 100 mg daily. Continue with this and to resume Eliquis therapy. Explained in detail the risk for stroke with no anticoagulation on board. Patient will try getting the Eliquis with the coupons but if he continues to have had also issues, patient understands that he might have to switch to a warfarin therapy. Given his noncompliance this is also going to be difficult. Continue digoxin and metoprolol for rate control. (3) Hypertension: Code(s): I10 - Essential (primary) hypertension Category: Medical Plan: Blood pressure is well-controlled. Continue above. Advised monitoring blood pressures at home with a goal less than 130/80. If Entresto continues to be expensive with the patient, we will have him back on valsartan. Coupon provided. Emphasized on med compliance and management of vascular risk factors. Follow up in 1 month with the hope that patient resumes his medications as prescribed. In the interim, patient will call the office with any concerns or change in symptoms. This note was generated using voice recognition software. While every effort has been made to ensure accuracy and proper completion engineer, there may be occasional errors that could affect the content or meaning of the described symptoms. Orders: Orders AMB EKG-In Office Today I48.91 - Unspecified atrial fibrillation Medications: New apixaban 5 mg PO BID 90 tabs 3RF dapagliflozin propanediol (Farxiga) 10 mg PO DAILY 90 tabs 3RF sacubitril-valsartan 24-26 mg (Entresto) 1 tab PO BID 90 tabs 3RF amlodipine 10 mg PO DAILY 90 tabs 3RF Coding Level of Care Code Est Pt Level 5 (16015) Complex EM visit Add On G2211 Diagnoses Cardiomyopathy I42.9 Atrial fibrillation with rapid ventricular response I48.91 Hypertension I10 CPT Codes EKG - CPT: 06994-[id number], Complete ([id number]) Time Spent (min) 41 Comment Time spent in reviewing the chart, test results, assessment, counseling and documentation.
[2024-09-18 15:06] VITALS: BP 120/76; BMI 26.3
== END 2024-09-18 15:44 | disposition home or self-care (01) ==
PROVIDERS: PCP Internal Medicine
DX: I42.9 Cardiomyopathy, unspecified (principal); I48.91 Unspecified atrial fibrillation; I10 Essential (primary) hypertension
CPT/HCPCS: 93010; 99215

== ENCOUNTER → 2024-09-18 14:59 | Outpatient (BNVA) | payer OTHER, SELFPAY | PROVIDERS: PCP Internal Medicine | DX: I48.91 Unspecified atrial fibrillation (principal); I42.9 Cardiomyopathy, unspecified; I10 Essential (primary) hypertension | CPT/HCPCS: 93005 ==

== ENCOUNTER → 2024-12-06 14:26 | Outpatient (REF) | payer OTHER, SELFPAY ==
--- OUTSIDE RECORDS SUMMARY | 2024-12-06 14:27 | XMS_ITS | Encounter Summary ---
Author Organization [employer] Address [address] [facility] [address] [place] [address] Care Team Providers Care Deputy Clerk Of Court Name Role Phone Dinesh Hernandez MD Primary Care Prov ider Encounter Details Date Type Department Care Team ([facility] st Contact Info) Description 10/22/2024 Telephone [facility] MEDICINE [address] [place] [address] Dinesh Hernandez MD [address] [place] [address] Social History Tobacco Use Types Packs/Day Years [...] as of this encounter Plan of Treatment Not on file documented as of this encounter Visit Diagnoses Not on filedocumented in this encounter Additional Health Concerns Assessment Noted Time PHQ-9 Depression Total Score: 0 03/18/20 9:28 AM EST documented as of this encounter Care Teams Deputy Clerk Of Court Relationship Specialty Start Date End Date Dinesh Hernandez MD [address] [place] [phone] PCP - General Internal Medicine 01/23/24 documented as of this encounter
--- OUTSIDE RECORDS SUMMARY | 2024-12-06 14:27 | XMS_ITS | Encounter Summary ---
Author Organization [employer] Address [address] [facility] [address] [place] [address] Care Team Providers Care Biomass Facilitator Name Role Phone Dinesh Hernandez MD Primary Care Prov ider Reason for Visit * Reason Onset Date Comments Switch to televisit 07/30/2024 Encounter Details Date Type Department Care Team ([facility] Contact Info) Description 07/30/2024 Telephone [facility] MEDICINE [address] [place] [address] Dinesh Hernandez MD [address] [place] [phone] Switch to televisit Social History Tobacco Use Types Packs/Day Years [...] encounter Miscellaneous Notes * Telephone Encounter - Catrina Squires - 07/30/2024 8:31 AM EDT Tc from pt requesting switch 07/30 appointment with pcp to televisit. Appointment today at 9:30 am. [phone] documented in this encounter Plan of Treatment Not on file documented as of this encounter Visit Diagnoses Not on filedocumented in this encounter Additional Health Concerns Assessment Noted Time PHQ-9 Depression Total Score: 0 03/18/20 24 9:28 AM EST documented as of this encounter Care Teams Biomass Facilitator Relationship Specialty Start Date End Date Dinesh Hernandez MD [address] [place] [id number] PCP - General Internal Medicine 01/23/24 documented as of this encounter
--- OUTSIDE RECORDS SUMMARY | 2024-12-06 14:27 | XMS_ITS | Encounter Summary ---
Author Organization [employer] Address [address] [facility] 7 [place] [address] Care Team Providers Care Corn Husker Name Role Phone Dinesh Hernandez MD Primary Care Prov ider Reason for Visit * Reason Onset Date Comments Prior Authorization 10/22/2024 Encounter Details Date Type Department Care Team ([facility] st Contact Info) Description 10/22/[address] [facility] MEDICINE [address] [place] [address] Dinesh Hernandez MD [address] [place] [phone] Prior Authorization Social History Tobacco Use Types Packs/Day Years [...] encounter Miscellaneous Notes * Telephone Encounter - Ambrosio Cerna - 10/22/2024 1:58 PM EDT TC from pt reports just switched his insurance to [employer] ( updated on chart) [facility] sotoubdoloresil-valsartan (Entresto) 49-51 MG tablet or an alternative to be prescribed. documented in this encounter Plan of Treatment Not on file documented as of this encounter Visit Diagnoses Not on filedocumented in this encounter Additional Health Concerns Assessment Noted Time PHQ-9 Depression Total Score: 0 03/18/20 24 9:28 AM EST documented as of this encounter Care Teams Corn Husker Relationship Specialty Start Date End Date Dinesh Hernandez MD [address] [place] [phone] PCP - General Internal Medicine 01/23/24 documented as of this encounter
--- OUTSIDE RECORDS SUMMARY | 2024-12-06 14:27 | XMS_ITS | Encounter Summary ---
Author Organization [employer] Address [address] [facility] [address] [place] [address] Care Team Providers Care Lien Searcher Name Role Phone Dinesh Hernandez MD Primary Care Prov ider Reason for Visit * Reason Onset Date Comments Medication Question 10/21/2024 Encounter Details Date Type Department Care Team ([facility] st Contact Info) Description 10/21/2024 Telephone [facility] MEDICINE [address] [place] [address] Dinesh Hernandez MD [address] [place] [address] Medication Question Social History Tobacco Use Types Packs/Day Years [...] encounter Miscellaneous Notes * Telephone Encounter - Nathalie Rothman LPN - 10/21/2024 12:22 PM EDT sacubitril-valsartan (Entresto) 49-51 MG tablet Should have refills left * Telephone Encounter - Ambrosio Cerna - 10/21/2024 12:13 PM EDT TC from pt requesting Generic medication for apixaban (Eliquis) 5 MG tablet sacubitril-valsartan (Entresto) 49-51 MG tablet To be sent to: [facility]/pharmacy [address] [place] [address] documented in this encounter Plan of Treatment Not on file documented as of this encounter Visit Diagnoses Not on filedocumented in this encounter Additional Health Concerns Assessment Noted Time PHQ-9 Depression Total Score: 0 03/18/20 24 9:28 AM EST documented as of this encounter Care Teams Lien Searcher Relationship Specialty Start Date End Date Dinesh Hernandez MD [address] [place] [phone] PCP - General Internal Medicine 01/23/24 documented as of this encounter
--- OUTSIDE RECORDS SUMMARY | 2024-12-06 14:27 | XMS_ITS | Clinical Summary ---
Author Organization [employer] Address [address] [facility] 7t [place] [address] Care Team Providers Care Hose Cementer Name Role Phone Dniesh Hernandez MD Primary Care Prov ider Allergies Active Allergy Reactions Criticality Noted Date Comments Shrimp Flavor Agent (Non-Screening) Rash Low 01/31/2024 Medications Blood Pressure kit 1 kit Once per day. 1 kit 4 Active digoxin (Lanoxin) 125 MCG tablet Take 125 mcg by mouth Once per day. Active NIFEdipine XL (Procardia XL) 30 MG 24 hr tablet Take 1 tablet (30 mg) by mouth Once per day. Do not crush, chew, or split. 30 tablet 11 5 08/07/19 26 Active sacubitril-irma sartan (Entresto) 49-51 MG tabletIndicati ons:Chronic systolic congestive heart failure (CMS/HCC) Take 1 tablet by mouth 2 times daily. 60 tablet 11 5 10/17/19 26 Active apixaban (Eliquis) 5 MG tablet Take 1 tablet (5 mg) by mouth 2 times daily. 60 tablet 3 5 Active dapagliflozin (Farxiga) 10 MGIndications: Chronic systolic congestive heart failure (CMS/HCC) Take 1 tablet (10 mg) by mouth Once per day. 30 tablet 11 5 10/23/19 26 Active furosemide (Lasix) 40 MG tablet TAKE 1 TABLET BY MOUTH ONCE PER DAY. 90 tablet 3 5 Active metoprolol succinate XL (Toprol-XL) 100 MG 24 hr tablet TAKE 0.5 TABLETS (50 MG) BY MOUTH ONCE PER DAY. DO NOT CRUSH OR CHEW. 45 tablet 3 5 11/20/19 26 Active furosemide (Lasix) 40 MG tablet Take 1 tablet (40 mg) by mouth Once per day. 90 tablet 3 4 11/20/19 25 Discontinued metoprolol succinate XL (Toprol XL) 100 MG 24 hr tablet Take 0.5 tablets (50 mg) by mouth Once per day. Do not crush or chew. 15 tablet 11 4 11/20/19 25 Discontinued Active Problems Problem Noted Date Diagnosed Date Encounter for adult wellness visit 2024 Assessment & Plan (2024 12:48 PM EST): Plan Dietary counseling Alcohol use counseling Referral to vision and dentist Follow up on station chief and neurologist Covid and Pneumococcal vaccine Encounter [...] eliquis, reviewed risk, will send renewal to [facility] pharm Alcohol use disorder 02/02/2024 Tremors of nervous system 02/02/2024 Assessment & Plan (06/21/2024 4:16 PM EDT): Followed by neurology, no changes will be made Assessment & Plan (02/02/2024 12:00 AM EDT): Will refer to neurology Chronic systolic congestive heart failure 2023 Assessment & Plan (09/20/2024 11:41 AM EDT): Followed by cardiology, symptoms are improving, told to keep water intake and sodium controlled, Assessment & Plan (2024 12:35 PM EST): Bilateral lower extremities pitting edema with discoloration Dry cough when lying down Plan Increase dose of sacubitril-Valsartan 49-51 Follow up appointment with station chief Dietary counseling Patient counseling on CHF Assessment [...] Meds:- Primary hypertension 01/31/2024 Assessment & Plan (09/20/2024 11:42 AM EDT): Improved, no shortness of breath, continue low sodium diet and exercise as tolerated Assessment & Plan (09/10/2024 11:55 AM EDT): Uncontrolled, will add nifedipine, continue rest of treatment, encouraged low sodium diet and exercise as tolerated, keep bp at target, keep bp log, follow up in 1 month Assessment & Plan (06/21/2024 4:16 PM EDT): [...] than 2 months, has not followed with station chief, not clear why he is on those medication, will request er/hospital discharge, apperently they were started back on august Encounters Date Type Department Care Team Description 11/28/2024 2:30 PM EDT Telemedicine [facility] [address] [place] [address] Dinesh Hernandez MD 11/28/2024 Travel 11/27/2024 Telephone [facility] [address] [place] [address] Dinesh Hernandez MD chart prep 11/21/[address] [address] Dinesh Hernandez MD 11/18/2024 Travel 11/16/2024 Refill [facility] [address] [place] [address] Dinesh Hernandez MD 11/04/[address] [facility] [address] [place] [phone] Dinesh Hernandez MD Letter for School/Work 10/28/2024 Telephone [facility] [address] [place] [address] Dinesh Hernandez MD Letter for School/Work 10/25/2024 Telephone [facility] [address] [place] [address] Dinesh Hernandez MD Prior Authorization 10/24/2024 Telephone [facility] [address] [place] [address] Dinesh Hernandez MD Prior Authorization; Change PCP 10/22/[address] [facility] [address] [place] [address] Dinesh Hernandez MD 10/22/[address] [facility] [address] [place] [address] Dinesh Hernandez MD Prior Authorization 10/21/2024 Orders Only [facility] [address] [place] [address] Dinesh Hernandez MD Chronic systolic congestive heart failure (CMS/HCC) 10/21/[address] [facility] [address] [place] [phone] Dinesh Hernandez MD FYI 10/21/[address] [facility] [address] [place] [address] Dinesh Hernandez MD Medication Question 09/06/2024 11:15 AM EDT Telemedicine [facility] [address] [place] [address] Dinesh Hernandez MD Screening for colon cancer (Primary Dx); Chronic systolic congestive heart failure (CMS/HCC); Primary hypertension 09/06/2024 Travel 09/05/[address] [facility] [address] [place] [address] Kathy Moncada OD from Last 3 Months Immunizations Immunization Administration Dates Next Due Pfizer Covid-19 Vaccine [...] Sign Reading Time Taken Comments Blood Pressure 135/84 11/28/2024 2:57 PM EDT Pulse 62 09/06/2024 11:22 AM EDT Temperature 37.1 C (98.7 F) 2024 9:27 AM EST Respiratory Rate 20 2024 9:27 AM EST [...] 1970 FIT 1970 FOBT 1970 Sigmoidoscopy 1970 Disability Screening 1970 DTaP/Tdap/Td Vaccines (1 - Tdap) 1989 Hepatitis B Vaccines (1 of 3 - 19+ 3-dose series) 1989 Zoster Vaccines (1 of 2) 2020 Influenza Vaccine (#1) 2024 Alcohol/Substance Use Screening 2025 2024 Depression Screening [...] patient's age to complete this topic Meningococcal B Vaccine Aged Out No l onger eligible based on patient's age to complete [...] Procedure Name Priority Date/Time Associated Diagnosis Comments LAB COLOGUARD COLON CANCER SCREEN- Unsuccessful Attempt Routine 09/20/2024 8:22 AM EDT Screening for colon cancer HEPATITIS C AB W/REFL TO HCV RNA, QN, PCR Routine 02/20/2024 4:04 PM EST Primary hypertension HIV 1/2 ANTIGEN/ANTIBODY, FOURTH GENERATION W/RFL Routine 02/20/2024 4:04 PM EST Primary hypertension LIPID PANEL, STANDARD Routine 02/20/2024 4:04 PM EST Primary hypertension from Last 3 Months or Most Recently Relevant to Health Maintenance Results * Cologuard?? colon cancer screening (09/20/2024 8:22 AM EDT) - Unsuccessful Attempt Cologuard Result Sample Could Not Be Processed 9 N/A 09/20/2024 8:22 AM EDT [facility] (CLIA #:[id number]) Comment: The Cologuard (TM) test was assigned to this specimen. An empty collection kit was received in the laboratory. The patient will be contacted to initiate a new sample collection. Stool specimen (specimen) 09/19/2024 11:04 AM EDT Dinesh Engel MD LAB MOLECULAR DIAG NOSTICS ORDERABLES Final Result [facility] (CLIA #:[id number]) [address] [place] [address], * Hepatitis C Antibody with Reflex to HCV, RNA, Quantitative, Real-Time PCR (02/20/2024 4:04 PM EST) Pathologist [facility] Hepatitis C Antibody Nonreactive Nonreactive [facility] Comment:Antibodies to HCV no t detected; does not exclude early acuteHCV infection. Blood Venous blood specimen / Unknown 02/20/2024 4:04 PM EST 02/20/2024 5:56 PM EST us Dinesh Engel MD LAB BLOOD ORDERABL ES Final Result Performing Organization Address City/[facility]/ZIP Co de Phone Number [facility] [address] [place] [phone] * HIV-1/2 Antigen and Antibodies, Fourth Generation, with Reflexes (02/20/2024 4:04 PM EST) HIV AB/AG Nonreactive Nonreactive [facility] Comment:HIV-1 p24 Ag and/or HIV-1/HIV-2 Ab not detected.A test result that is nonreactive does not exclude thepossibility of exposure to or infection with HIV-1 and/orHIV-2. Nonreactive results in this assay for individualswith prior exposure to HIV-1 and/or HIV-2 may be due toantigen and antibody levels that are below the limit ofdetection of this assay.The [employer] HIV Ag/Ab Combo assay result andsupplemental assay results should be interpreted inconjunction with the patient's clinical presentation,history and other laboratory results. If the results areinconsistent with clinical evidence, additional testing issuggested to confirm the result. Blood Venous blood specimen / Unknown 02/20/2024 4:04 PM EST 02/20/2024 5:56 PM EST us Dinesh Engel MD LAB BLOOD ORDERABL ES Final Result Performing Organization Address City/[facility]/ZIP Co de Phone Number [facility] [address] [place] [phone] * (ABNORMAL) Lipid Panel, Standard (02/20/2024 4:04 PM EST) Triglycerides 57 <150 mg/dL [facility] Comment:Desirable Triglyceri de: less than 150 mg/dLBorderline High Triglyceride 150-199 mg/dLHigh Triglyceride: 200-499 mg/dLVery High Triglyceride: greater than or equal to 5OO mg/dL Cholesterol 123 <200 mg/dL [facility] Comment:Desirable Cholestero l: less than 200 mg/dLBorderline High Cholesterol: 200-239 mg/dLHigh Cholesterol: greater than 239 mg/dL LDL Cholesterol Calculated 80 <100 mg/dL [facility] Comment:Desirable LDL: less than 100 mg/dLNear Optimal/Above Optimal LDL: 110- 129 mg/dLBorderline High LDL: 130-159 mg/dLHigh LDL: 160-189 mg/dLVery High LDL: greater than or equal to 190 mg/dL HDL Cholesterol 32(L) >40 mg/dL [facility] Comment:Desirable HDL: great er than 40 mg/dL Note: This HDL assay may give artificially low results in patients with liver disease. Blood Venous blood specimen / Unknown 02/20/2024 4:04 PM EST 02/20/2024 5:56 PM EST us Dinesh Engel MD LAB BLOOD ORDERABL ES Final Result Performing Organization Address City/State/[facility] Co de Phone Number [facility] [address] [place] [phone] from Last 3 Months or Most Recently Relevant to Health Maintenance Insurance [facility] Care Teams Hose Cementer Relationship Specialty Start Date End Date Dinesh Hernandez MD [address] [place] [phone] PCP - General Internal Medicine 01/23/24
--- OUTSIDE RECORDS SUMMARY | 2024-12-06 14:27 | XMS_ITS | Encounter Summary ---
Author Organization [employer] Address [address] [facility] 7 [place] [address] Care Team Providers Care Dough Mixing Machine Operator Name Role Phone Dinesh Hernandez MD Primary Care Prov ider Reason for Visit * Reason Onset Date Comments Prior Authorization 10/25/2024 Encounter Details Date Type Department Care Team ([facility] Contact Info) Description 10/25/2024 Telephone [facility] [address] [place] [address] Dinesh Hernandez MD [address] [place] [address] Prior Authorization Social History Tobacco Use Types [...] encounter Miscellaneous Notes * Telephone Encounter - Otilia Galvez - 10/25/2024 9:52 AM EDT Tc from [place] from [facility] pharmacy stating a PA is needed for dapagliflozin (Farxiga) 10 MG in order for it to be filled . If PA can not be approved she stated insurance will cover Jardiance. Contact Florence at [phone] documented in this encounter Plan of Treatment Not on file documented as of this encounter Visit Diagnoses Not on filedocumented in this encounter Additional Health Concerns Assessment Noted Time PHQ-9 Depression Total Score: 0 03/18/20 9:28 AM EST documented as of this encounter Care Teams Dough Mixing Machine Operator Relationship Specialty Start Date End Date Dinesh Hernandez MD [address] [place] [phone] PCP - General Internal Medicine 01/23/24 documented as of this encounter
--- NOTE | 2024-12-06 14:29 | CA_ITS ---
Transthoracic Echocardiogram Patient (Last, First, Middle): Ren Rodriguez, Gender: Male Date of : 1970 Age: 54 Procedure Date: 12/06/2024 Procedure Type: Transthoracic Echocardiogram Location: OP Height: 182.88 cm Weight: 84.82 kg BSA: 2.07 m2 Heart Rate: 115 bpm BP: 137 / 86 mmHg Affiliate Marketing Coordinator: SB/RC Referring MD: Fran Bedolla NP Symptoms: I42.9 - Cardiomyopathy, unspecified Study Quality: Adequate ECG Rhythm: Atrial Fibrillation Conclusions: - The left ventricular systolic function is severely decreased. The visually estimated ejection fraction is between 25-30%. - No obvious valvular pathology seen on this study. Findings Procedure Information Contrast agent, definity, is being given per protocol without apparent complications. The quality of the study was technically difficult. The study quality is limited by lung artifact. Left Ventricle Normal left ventricular cavity size. There is normal left ventricular wall thickness. The left ventricular systolic function is severely decreased. The visually estimated ejection fraction is between 25-30%. There is severe global hypokinesis. Diastolic function is indeterminate on the basis of available data. Right Ventricle Normal right ventricular cavity size. There is low normal right ventricular systolic function. Atria Both atria are normal in size. Aortic Valve There is a normal trileaflet aortic valve. There is no aortic valve stenosis. There is no aortic valve regurgitation. Mitral Valve The mitral valve appears normal. There is no mitral valve regurgitation. There is no mitral valve stenosis. Pulmonic Valve The pulmonic valve is likely normal. Tricuspid Valve There is mild tricuspid valve regurgitation. There is no evidence of pulmonary hypertension. Great Vessels The asc aorta is normal in size. Venous The inferior vena cava is mildly dilated and collapses less than 50% with inspiration. Pericardium/Pleural There is no evidence of pericardial effusion. Prior Study Comparison No prior study available for comparison. Recommendations, Care & Conclusions No obvious valvular pathology seen on this study. Measurements 2D Linear Measurements IVSd: 0.99 0.6-0.9/0.6-1.0 cm LVIDd: 5.52 3.9-5.3/4.2-5.9 cm LVIDd Index: 2.67 2.4-3.2/2.2-3.1 cm/m2 LVIDs: 4.72 2.0-3.6 cm LVPWd: 0.96 0.7-1.1 cm LA Diam: 4.10 2.7-3.8/3.0-4.0 cm LAIDs Index: 1.98 1.5-2.3 cm/m2 LV Mass: 258.58 67-162/88-224 g LV Mass Index: 124.92 43-95/49-115 g/m2 LVOT Diam: 2.10 3.0+(-)1.3 cm 2D Systolic Function EF 4C: 25.50 >55% EF 2C: 21.20 >55% EF BiP: 23.00 >55% Mitral Valve MV Pk E: 0.85 E'Lateral: 11.40 E'Medial: 6.20 E/E' Med: 13.80 E/E' Lat: 7.50 Aortic Valve AoV Pk Chuck: 1.11 AoV Pk Grad: 5.00 LUIS MANUEL: 2.41 LVOT LVOT Pk Chuck: 0.77 LVOT Mn Chuck: 0.57 LVOT VTI: 0.13 LVOT Pk Grad: 2.00 LVOT Mn Grad: 1.00 LVOT Diam: 2.10 LVOT Area: 3.46 Diastolic Function MV Pk E: 0.85 E'Medial: 6.20 E/E' Med: 13.80 E' Laterial: 11.40 E/E' Lat: 7.50 Right Ventricle TAPSE (mm): 18.60 TVS' Chuck: 10.30 Tricuspid Valve TR Pk Chuck: 2.25 TR Pk Grad: 20.00 Great Vessels Aorta Sinus of Valsalva: 3.20 2.0-3.5 cm Ao Asc: 3.40 2.1-3.4 cm Pulmonary Valve PV Pk Chuck: 0.99 Peak PV Grad: 4.00 Updated in Other Vendor System with Status of Final Gavin Akers MD electronically signed on 12/07/2024 1:33:44 PM with status of Final
== END ==
LOC: HO.CARD 14:26
PROVIDERS: PCP Internal Medicine
DX: I42.9 Cardiomyopathy, unspecified (principal)
CPT/HCPCS: 93306; Q9957

== ENCOUNTER → 2024-12-06 14:29 | Outpatient (BNV) | payer OTHER, SELFPAY | PROVIDERS: PCP Internal Medicine; Visit Provider Internal Medicine | DX: I50.20 Unspecified systolic (congestive) heart failure (principal) | CPT/HCPCS: 93306 ==

== ENCOUNTER 2024-12-12 13:10 | Outpatient (AMB) | payer OTHER, SELFPAY ==
--- NOTE | 2024-12-12 13:18 | MHC.OFFVIS ---
Vital Signs 12/12/24 13:19 Height 6 ft Weight 202 lb 13.204 oz BMI 27.5 BP 128/68 Blood Pressure Location Lt brachial Position Sitting Pulse 90 Pulse Source Auscultation Intake Visit Reasons: 1 mth f/up-echo Allergies No Known Allergies Allergy (Verified 07/16/24 14:10) Medication List - Last Reconciled 12/12/24 by Gavin Akers MD amlodipine 10 mg PO DAILY apixaban 5 mg PO BID blood pressure monitor As directed clonazepam 0.5 mg PO BEDTIME dapagliflozin propanediol (Farxiga) 10 mg PO DAILY digoxin 0.125 mg See Protocol PO DAILY furosemide 40 mg PO DAILY metoprolol succinate ER 100 mg PO DAILY valsartan 80 mg PO BID HPI Comments Details: Ren returns for follow-up regarding atrial fibrillation as well as cardiomyopathy. He has a history of alcohol excess, congestive heart failure with reduced ejection fraction. In the past, it seems that he was noncompliant and was not taking medications regularly but in the recent few weeks, he states he is taking everything as appropriate. He also states that he has stopped drinking completely. He is stating that he would like to go back to work at least under light duty as otherwise, he cannot sustain financially. [facility] Medical History (Updated 12/12/24 @ 13:54 by Gavin Akers MD) Cardiomyopathy Atrial fibrillation with rapid ventricular response Excessive drinking alcohol Alcohol abuse Congestive heart failure Family History Father No problems noted. Mother No problems noted. Social History Alcohol intake: current Alcohol intake frequency: a few times a week Comment: 6 pack/one day/week Patient Tobacco Use Status: Never used Tobacco service: No Review of Systems Const Denies weakness ENT Denies dizziness Card Denies chest pain, Denies chest pain with activity, Denies syncope, Denies rapid heart rate, Denies pedal edema, Denies edema, Denies leg edema, Denies lightheadedness, Denies palpitations, Denies dyspnea, Denies dyspnea on exertion and Denies orthopnea Resp Denies cough, Denies dyspnea and Denies dyspnea on exertion GI Denies hematochezia and Denies change in stool character Musc Denies abnormal gait, Denies muscle cramps, Denies muscle weakness, Denies numbness, Denies radiating pain into limb and Denies tingling Neuro Denies abnormal gait, Denies dizziness, Denies syncope, Denies numbness, Denies tingling and Denies weakness Endo Denies palpitations Physical Exam Vital Signs: Last Vital Signs Pulse 90 12/12/24 13:19 BP 128/68 12/12/24 13:19 BMI result Body Mass Index 27.5 Const General: comfortable and no acute distress Orientation/consciousness: patient oriented x3 HEENT Other: Unremarkable Head: Yes normal to inspection Neck Neck: Yes normal visual inspection Chest Chest palpation & inspection: normal inspection of the chest Resp Auscultation: clear to auscultation bilaterally Cardio Palpation: normal PMI Heart sounds: S1 normal heart sound present, S2 normal heart sound present, no gallops, no murmurs and no rubs GI Palpation (GI): Soft to palpation Back/Spine/Pelvis Other: unremarkable Skin General skin exam: no rashes or lesions noted Neuro General: patient oriented x3 Extrem General: Yes normal to inspection Psych Mental Status: mental status grossly normal Assessment & Plan Assessment & Plan (1) Persistent atrial fibrillation: Code(s): I48.19 - Other persistent atrial fibrillation Category: Medical Plan: Currently on rate control meds including metoprolol and digoxin. On Eliquis. In the past, noncompliant and also drinking alcohol, but he states he is apparently taking all his medications every day. Hence we can attempt cardioversion. If he responds, we could maintain at least short-term Amiodarone and then decide based on compliance. (2) Cardiomyopathy: Code(s): I42.9 - Cardiomyopathy, unspecified Category: Medical Plan: Could be tachycardia mediated. Clinically, no active CHF. He is on diuretics. We will need to see if the EF improves after cardioversion or not. With regard to medications, he is on metoprolol ER and valsartan. He states Entresto was not covered by his insurance. On Farxiga. Based on compliance, consider adding spironolactone in the future. Most recent LVEF is 25-30%. Check labs. (3) Excessive drinking alcohol: Code(s): F10.10 - Alcohol abuse, uncomplicated Category: Social Hx Plan: States that he has not done that recently. Plan Discussion Notes I discussed with the patient the plan to perform a cardioversion procedure to attempt to restore normal sinus rhythm. We reviewed the importance of continuing his current medications and the need for pre-procedure blood work. The patient was informed about the procedure's risks and benefits, and he expressed understanding and agreement to proceed. Patient was informed and verbally consented to the use of an ambient scribe for clinic note documentation during this visit. Orders: Orders Basic Metabolic Panel Today I48.19 - Other persistent atrial fibrillation Patient Instructions: - Continue taking metoprolol, digoxin, and valsartan as prescribed. - Abstain from alcohol to support heart health. - Complete blood work prior to the scheduled procedure. - Arrange for transportation on the day of the procedure. Coding Level of Care Code Est Pt Level 4 (50728) Complex EM visit Add On G2211 Diagnoses Persistent atrial fibrillation I48.19 Cardiomyopathy I42.9 Excessive drinking alcohol F10.10
[2024-12-12 13:19] VITALS: BP 128/68; PULSE 90; BMI 27.5
--- OUTSIDE RECORDS SUMMARY | 2024-12-12 14:27 | XMS_ITS | Encounter Summary ---
Author Organization [employer] Address [address] [facility] 7t [place] [address] Care Team Providers Care Experimental Preflight Mechanic Name Role Phone Dinesh Hernandez MD Primary Care Prov ider Encounter Details Date Type Department Care Team ([facility] st Contact Info) Description 10/22/2024 Telephone [facility] [address] [place] [address] Dinesh Hernandez MD [address] [place] [address] Social History Tobacco Use Types Packs/Day Years [...] documented as of this encounter Care Teams Experimental Preflight Mechanic Relationship Specialty Start Date End Date Dinesh Hernandez MD [address] [place] [phone] PCP - General Internal Medicine 01/23/24 documented as of this encounter
--- OUTSIDE RECORDS SUMMARY | 2024-12-12 14:27 | XMS_ITS | Encounter Summary ---
Author Organization [employer] Address [address] [facility] 7 [place] [address] Care Team Providers Care Lighter Captain Name Role Phone Dinesh Hernandez MD Primary Care Prov ider Reason for Visit * Reason Onset Date Comments Prior Authorization 10/25/2024 Encounter Details Date Type Department Care Team ([facility] Contact Info) Description 10/25/2024 Telephone [facility] [address] [place] [address] Dinesh Hernandez MD [address] [place] [address] Prior Authorization Social History Tobacco Use Types [...] 9:52 AM EDT Tc from [place] from [facility] pharmacy stating a PA is needed for dapagliflozin (Farxiga) 10 MG in order for it to be filled . If PA can not be approved she stated insurance will cover Jardiance. Contact Florence at [phone] documented in this encounter Plan of Treatment Not on file documented as of this encounter Visit Diagnoses Not on filedocumented in this encounter Additional Health Concerns Assessment Noted Time PHQ-9 Depression Total Score: 0 03/18/20 9:28 AM EST documented as of this encounter Care Teams Lighter Captain Relationship Specialty Start Date End Date Dinesh Hernandez MD [address] [place] [phone] PCP - General Internal Medicine 01/23/24 documented as of this encounter
--- OUTSIDE RECORDS SUMMARY | 2024-12-12 14:27 | XMS_ITS | Encounter Summary ---
Author Organization [employer] Address 75 [facility] 7 [place] [address] Care Team Providers Care Assembler Type Bar And Segment Name Role Phone Dinesh Hernandez MD Primary Care Prov ider Reason for Visit * Reason Onset Date Comments Switch to televisit 07/30/2024 Encounter Details Date Type Department Care Team ([facility] st Contact Info) Description 07/30/2024 Telephone [facility] MEDICINE [address] [place] [address] Dinesh Hernandez MD [address] [place] [phone] Switch to televisit Social History Tobacco Use [...] to televisit. Appointment today at 9:30 am. [phone] documented in this encounter Plan of Treatment Not on file documented as of this encounter Visit Diagnoses Not on filedocumented in this encounter Additional Health Concerns Assessment Noted Time PHQ-9 Depression Total Score: 0 03/18/20 24 9:28 AM EST documented as of this encounter Care Teams Assembler Type Bar And Segment Relationship Specialty Start Date End Date Dinesh Hernandez MD [address] [place] [phone] PCP - General Internal Medicine 01/23/24 documented as of this encounter
--- OUTSIDE RECORDS SUMMARY | 2024-12-12 14:27 | XMS_ITS | Clinical Summary ---
Author Organization [employer] Address 75 [facility] 7t [place] [address] Care Team Providers Care School Social Worker Name Role Phone Dinesh Hernandez MD Primary [...] to vision and dentist Follow up on associate professor of pathology and neurologist Covid and Pneumococcal vaccine Encounter [...] eliquis, reviewed risk, will send renewal to [facility] pharm Alcohol use disorder 02/02/2024 Tremors [...] of sacubitril-Valsartan 49-51 Follow up appointment with associate professor of pathology Dietary counseling Patient counseling on CHF Assessment [...] than 2 months, has not followed with associate professor of pathology, not clear why he is on those medication, will request er/hospital discharge, apperently they were started back on august Encounters Date Type Department Care Team Description 11/28/2024 2:30 PM EDT Telemedicine [facility] [address] [place] [address] Dinesh Hernandez MD 11/28/2024 Travel 11/27/2024 Telephone [facility] [address] [place] [address] Dinesh Hernandez MD chart prep 11/21/[address] [address] Dinesh Hernandez MD 11/18/2024 Travel 11/16/2024 Refill [facility] [address] [place] [address] Dinesh Hernandez MD 11/04/2024 Telephone [facility] MED[facility]INE [address] [place] [phone] Dinesh Hernandez MD Letter for School/Work 10/28/2024 Telephone [facility] [address] [place] [address] Dinesh Hernandez MD Letter for School/Work 10/25/2024 Telephone [facility] [address] [place] [address] Dinesh Hernandez MD Prior Authorization 10/24/2024 Telephone [facility] [address] [place] [address] Dinesh Hernandez MD Prior Authorization; Change PCP 10/22/2024 Telephone [facility] [address] [place] [address] Dinesh Hernandez MD 10/22/2024 Telephone [facility] [address] [place] [address] Dinesh Hernandez MD Prior Authorization 10/21/2024 Orders Only [facility] [address] [place] [address] Dinesh Hernandez MD Chronic systolic congestive heart failure (CMS/HCC) 10/21/[address] [address] Dinesh Hernandez MD FYI 10/21/2024 Telephone [facility] [address] [place] [address] Dinesh Hernandez MD Medication Question from Last 3 Months Immunizations Immunization Administration [...] (09/20/2024 8:22 AM EDT) - Unsuccessful Attempt Pathologist [facility] Cologuard Result Sample Could Not Be Processed 9 N/A 09/20/2024 8:22 AM EDT [employer] (CLIA #:[id number]) Comment: The Cologuard (TM) test was assigned to this specimen. An empty collection kit was received in the laboratory. The patient will be contacted to initiate a new sample collection. Stool specimen (specimen) 09/19/2024 11:04 AM EDT Dinesh Engel MD LAB MOLECULAR DIAG NOSTICS ORDERABLES Final Result Performing Organization Address City/[facility]/ZIP Co de Phone Number [employer] (CLIA #:[id number]) [address] [place] [address], * Hepatitis C Antibody with Reflex to HCV, RNA, Quantitative, Real-Time PCR (02/20/2024 4:04 PM EST) [facility] [address] Hepatitis C Antibody Nonreactive Nonreactive [facility] Comment:Antibodies to HCV no t detected; does not exclude early acuteHCV infection. Blood Venous blood specimen / Unknown 02/20/2024 4:04 PM EST 02/20/2024 5:56 PM EST Dinesh Engel MD LAB BLOOD ORDERABL ES Final Result Performing Organization Address City/[facility]/ZIP Co de Phone Number [facility] [address] [place] [phone] * HIV-1/2 Antigen and Antibodies, Fourth Generation, with Reflexes (02/20/2024 4:04 PM EST) [facility] [address] HIV AB/AG Nonreactive Nonreactive [facility] Comment:HIV-1 p24 Ag and/or HIV-1/HIV-2 Ab not detected.A test result that is nonreactive does not exclude thepossibility of exposure to or infection with HIV-1 and/orHIV-2. Nonreactive results in this assay for individualswith prior exposure to HIV-1 and/or HIV-2 may be due toantigen and antibody levels that are below the limit ofdetection of this assay.The [employer] HIV Ag/Ab Combo assay result andsupplemental assay results should be interpreted inconjunction with the patient's clinical presentation,history and other laboratory results. If the results areinconsistent with clinical evidence, additional testing issuggested to confirm the result. Blood Venous blood specimen / Unknown 02/20/2024 4:04 PM EST 02/20/2024 5:56 PM EST us Dinesh Engel MD LAB BLOOD ORDERABL ES Final Result [facility] [address] [place] [phone] * (ABNORMAL) Lipid Panel, Standard (02/20/2024 4:04 PM EST) Triglycerides 57 <150 mg/dL [facility] Comment:Desirable Triglyceri de: less than 150 mg/dLBorderline High Triglyceride 150-199 mg/dLHigh Triglyceride: 200-499 mg/dLVery High Triglyceride: greater than or equal to 5OO mg/dL Cholesterol 123 <200 mg/dL [facility] Comment:Desirable Cholestero l: less than 200 mg/dLBorderline High Cholesterol: 200-239 mg/dLHigh Cholesterol: greater than 239 mg/dL LDL Cholesterol Calculated 80 <100 mg/dL [facility] Comment:Desirable LDL: less than 100 mg/dLNear Optimal/Above Optimal LDL: 110- 129 mg/dLBorderline High LDL: 130-159 mg/dLHigh LDL: 160-189 mg/dLVery High LDL: greater than or equal to 190 mg/dL HDL Cholesterol 32(L) >40 mg/dL [facility] Comment:Desirable HDL: great er than 40 mg/dL Note: This HDL assay may give artificially low results in patients with liver disease. Blood Venous blood specimen / Unknown 02/20/2024 4:04 PM EST 02/20/2024 5:56 PM EST Dinesh Engel MD LAB BLOOD ORDERABL ES Final Result [facility] [address] [place] [phone] [phone] from Last 3 Months or Most Recently Relevant to Health Maintenance Insurance [facility] Care Teams School Social Worker Relationship Specialty Start Date End Date Dinesh Hernandez MD [address] [place] [phone] PCP - General Internal Medicine 01/23/24
--- OUTSIDE RECORDS SUMMARY | 2024-12-12 14:27 | XMS_ITS | Encounter Summary ---
Author Organization [employer] Address 75 [facility] 7 [place] [address] Care Team Providers Care Roll Tester Name Role Phone Dinesh Hernandez MD Primary Care Prov ider Reason for Visit * Reason Onset Date Comments Prior Authorization 10/22/2024 Encounter Details Date Type Department Care Team ([facility] st Contact Info) Description 10/22/2024 Telephone [facility] [address] [place] [address] Dinesh Hernandez MD [address] [place] [phone] Prior Authorization Social History Tobacco Use Types [...] pt reports just switched his insurance to [employer] ( updated on chart) [facility] CESAR sotoubdoloresil-valsartan (Entresto) 49-51 MG tablet or an alternative to be prescribed. documented in this encounter Plan of Treatment Not on file documented as of this encounter Visit Diagnoses Not on filedocumented in this encounter Additional Health Concerns Assessment Noted Time PHQ-9 Depression Total Score: 0 03/18/20 24 9:28 AM EST documented as of this encounter Care Teams Roll Tester Relationship Specialty Start Date End Date Dinesh Hernandez MD [address] [place] [phone] PCP - General Internal Medicine 01/23/24 documented as of this encounter
--- OUTSIDE RECORDS SUMMARY | 2024-12-12 14:27 | XMS_ITS | Encounter Summary ---
Author Organization [employer] Address 75 [facility] 7t [place] [address] Care Team Providers Care Hardboard Coating Machine Operator Name Role Phone Dinesh Hernandez MD Primary Care Prov ider Reason for Visit * Reason Onset Date Comments Medication Question 10/21/2024 Encounter Details Date Type Department Care Team ([facility] st Contact Info) Description 10/21/2024 Telephone [facility] MEDICINE [address] [place] [address] Dinesh Hernandez MD [address] [place] [address] Medication Question Social History Tobacco Use Types [...] 49-51 MG tablet To be sent to: [facility]/pharmacy #[address] [place] [address] documented in this encounter Plan of Treatment Not on file documented as of this encounter Visit Diagnoses Not on filedocumented in this encounter Additional Health Concerns Assessment Noted Time PHQ-9 Depression Total Score: 0 03/18/20 24 9:28 AM EST documented as of this encounter Care Teams Hardboard Coating Machine Operator Relationship Specialty Start Date End Date Dinesh Hernandez MD [address] [place] [phone] PCP - General Internal Medicine 01/23/24 documented as of this encounter
== END 2024-12-12 14:11 | disposition home or self-care (01) ==
LOC: HO.HCS 13:11
PROVIDERS: PCP Internal Medicine; Visit Provider Internal Medicine
DX: I48.19 Other persistent atrial fibrillation (principal); I42.9 Cardiomyopathy, unspecified; F10.10 Alcohol abuse, uncomplicated
CPT/HCPCS: 99214

== ENCOUNTER 2024-12-12 13:10 | Outpatient (REF) | payer OTHER, SELFPAY ==
[2024-12-12 15:28] LABS: Anion Gap 15 (12-20); Blood Urea Nitrogen 18 mg/dL (9-16); Calcium 10.0 mg/dL (8.4-10.2); Carbon Dioxide 27 mmol/L (22-29); Chloride 100 mmol/L (96-108); Estimated Glomerular Filt Rate 45; Potassium 4.2 mmol/L (3.3-5.1); Sodium 138 mmol/L (135-145)
== END 2024-12-12 13:11 | disposition home or self-care (01) ==
LOC: HO.LAB 13:10
PROVIDERS: PCP Internal Medicine; Visit Provider Internal Medicine
DX: I48.19 Other persistent atrial fibrillation (principal); I42.9 Cardiomyopathy, unspecified; F10.10 Alcohol abuse, uncomplicated
CPT/HCPCS: 36415; 80048

== ENCOUNTER 2024-12-26 12:09 | Day surgery (SDC) | payer OTHER, SELFPAY ==
--- OUTSIDE RECORDS SUMMARY | 2024-12-18 17:25 | XMS_ITS | Encounter Summary ---
Author Organization [employer] Address 75 [facility] 7 [place] [address] Care Team Providers Care Slice Plug Cutter Operator Name Role Phone Dinesh Hernandez MD Primary Care Prov ider Reason for Visit * Reason Onset Date Comments Prior Authorization 10/25/2024 Encounter Details Date Type Department Care Team ([facility] Contact Info) Description 10/25/2024 Telephone [facility] [address] [place] [address] Dinesh Hernandez MD [address] [place] [address] Prior Authorization Social History Tobacco Use Types [...] 9:52 AM EDT Tc from [place] from [facility] pharmacy stating a PA is needed for dapagliflozin (Farxiga) 10 MG in order for it to be filled . If PA can not be approved she stated insurance will cover Jardiance. Contact Floernce at [phone] documented in this encounter Plan of Treatment Not on file documented as of this encounter Visit Diagnoses Not on filedocumented in this encounter Additional Health Concerns Assessment Noted Time PHQ-9 Depression Total Score: 0 03/18/20 9:28 AM EST documented as of this encounter Care Teams Slice Plug Cutter Operator Relationship Specialty Start Date End Date Dinesh Hernandez MD [address] [place] [phone] PCP - General Internal Medicine 01/23/24 documented as of this encounter
--- OUTSIDE RECORDS SUMMARY | 2024-12-18 17:25 | XMS_ITS | Encounter Summary ---
Author Organization [employer] Address 75 [facility] 7 [place] [address] Care Team Providers Care Deburr Technician Name Role Phone Dinesh Hernandez MD Primary Care Prov ider Reason for Visit * Reason Onset Date Comments Prior Authorization 10/22/2024 Encounter Details Date Type Department Care Team ([facility] st Contact Info) Description 10/22/2024 Telephone [facility] MEDICINE [address] [place] [address] Dinesh Hernandez MD [address] [place] [phone] Prior Authorization Social History Tobacco Use Types [...] pt reports just switched his insurance to [employer] ( updated on chart) [facility] [employer] sotoubdoloresil-valsartan (Entresto) 49-51 MG tablet or an alternative to be prescribed. documented in this encounter Plan of Treatment Not on file documented as of this encounter Visit Diagnoses Not on filedocumented in this encounter Additional Health Concerns Assessment Noted Time PHQ-9 Depression Total Score: 0 03/18/20 24 9:28 AM EST documented as of this encounter Care Teams Deburr Technician Relationship Specialty Start Date End Date Diensh Hernandez MD [address] [place] [phone] PCP - General Internal Medicine 01/23/24 documented as of this encounter
--- OUTSIDE RECORDS SUMMARY | 2024-12-18 17:25 | XMS_ITS | Encounter Summary ---
Author Organization [employer] Address 75 [facility] 7t [place] [address] Care Team Providers Care Instructor Substitute Cosmetology Name Role Phone Dinesh Hernandez MD Primary Care Prov ider Encounter Details Date Type Department Care Team ([facility] st Contact Info) Description 10/22/2024 Telephone [facility] MEDICINE [address] [place] [address] Dinesh Hernandez MD [address] [place] [address] Social History Tobacco Use Types Packs/Day Years [...] documented as of this encounter Care Teams Instructor Substitute Cosmetology Relationship Specialty Start Date End Date Dinesh Hernandez MD [address] [place] [phone] PCP - General Internal Medicine 01/23/24 documented as of this encounter
--- OUTSIDE RECORDS SUMMARY | 2024-12-18 17:26 | XMS_ITS | Encounter Summary ---
Author Organization [employer] Address 75 [facility] 7 [place] [address] Care Team Providers Care [employer] Division Manager Name Role Phone Dinesh Hernandez MD Primary Care Prov ider Reason for Visit * Reason Onset Date Comments Switch to televisit 07/30/2024 Encounter Details Date Type Department Care Team ([facility] st Contact Info) Description 07/30/2024 Telephone [facility] MEDICINE [address] [place] [address] Dinesh Hernandez MD [address] [place] [phone] Switch to televisit Social History Tobacco Use [...] to televisit. Appointment today at 9:30 am. [phone] documented in this encounter Plan of Treatment Not on file documented as of this encounter Visit Diagnoses Not on filedocumented in this encounter Additional Health Concerns Assessment Noted Time PHQ-9 Depression Total Score: 0 03/18/20 24 9:28 AM EST documented as of this encounter Care Teams [employer] Division Manager Relationship Specialty Start Date End Date Dinesh Hernandez MD [address] [place] [phone] PCP - General Internal Medicine 01/23/24 documented as of this encounter
--- OUTSIDE RECORDS SUMMARY | 2024-12-18 17:26 | XMS_ITS | Encounter Summary ---
Author Organization [employer] Address 75 [facility] 7t [place] [address] Care Team Providers Care Counterperson Name Role Phone Dinesh Hernandez MD Primary Care Prov ider Reason for Visit * Reason Onset Date Comments Medication Question 10/21/2024 Encounter Details Date Type Department Care Team ([facility] st Contact Info) Description 10/21/2024 Telephone [facility] MEDICINE [address] [place] [address] Dinesh Hernandez MD [address] [place] [address] Medication Question Social History Tobacco Use Types [...] 49-51 MG tablet To be sent to: [facility]/pharmacy [address] [place] [address] documented in this encounter Plan of Treatment Not on file documented as of this encounter Visit Diagnoses Not on filedocumented in this encounter Additional Health Concerns Assessment Noted Time PHQ-9 Depression Total Score: 0 03/18/20 24 9:28 AM EST documented as of this encounter Care Teams Counterperson Relationship Specialty Start Date End Date Dinesh Hernandez MD [address] [place] [phone] PCP - General Internal Medicine 01/23/24 documented as of this encounter
--- OUTSIDE RECORDS SUMMARY | 2024-12-18 17:26 | XMS_ITS | Clinical Summary ---
Author Organization [employer] Address [address] [place] [address] Care Team Providers Care Institutional Asset Manager Name Role Phone Dinesh Hernandez MD [...] to vision and dentist Follow up on grain weigher and neurologist Covid and Pneumococcal vaccine Encounter [...] eliquis, reviewed risk, will send renewal to [facility] pharm Alcohol use disorder 02/02/2024 Tremors [...] of sacubitril-Valsartan 49-51 Follow up appointment with grain weigher Dietary counseling Patient counseling on CHF Assessment [...] than 2 months, has not followed with grain weigher, not clear why he is on those medication, will request er/hospital discharge, apperently they were started back on august Encounters Date Type Department Care Team Description 12/12/2024 Orders Only GENERIC EXTERNAL DATA DEPARTMENT Provider, Generic External Data 11/28/2024 2:30 PM EDT Telemedicine [facility] [address] [place] [address] Dinesh Hernandez MD 11/28/2024 Travel 11/27/2024 Telephone [facility] [address] [place] [address] Dinesh Hernandez MD chart prep 11/21/2024 Telephone [facility] [address] [place] [phone] Dinesh Hernandez MD 11/18/2024 Travel 11/16/2024 Refill [facility] [address] [place] [address] Dinesh Hernandez MD 11/04/2024 Telephone [facility] [address] [place] [phone] Dinesh Hernandez MD Letter for School/Work 10/28/2024 Telephone [facility] [address] [place] [address] Dinesh Hernandez MD Letter for School/Work 10/25/2024 Telephone [facility] [address] [place] [address] Dinesh Hernandez MD Prior Authorization 10/24/2024 Telephone [facility] [address] [place] [address] Dinesh Hernandez MD Prior Authorization; Change PCP 10/22/2024 Telephone [facility] [address] [place] [address] Dinesh Hernandez MD 10/22/2024 Telephone [facility] [address] [place] [phone] Dinesh Hernandez MD Prior Authorization 10/21/2024 Orders Only [facility] [address] [place] [address] Dinesh Hernandez MD Chronic systolic congestive heart failure (CMS/HCC) 10/21/2024 Telephone [facility] [address] [place] [address] Dinesh Hernandez MD FYI 10/21/2024 Telephone [facility] [address] [place] [address] Dinesh Hernandez MD Medication Question from Last [...] is your housing situation today? I have kulwatn nassar [address] you [...] Procedure Name Priority Date/Time Associated Diagnosis Comments BASIC METABOLIC PANEL Routine 12/12/2024 2:21 PM EDT LAB COLOGUARD COLON CANCER SCREEN- Unsuccessful Attempt [...] Recently Relevant to Health Maintenance Results * (ABNORMAL) Basic Metabolic Panel (12/12/2024 2:21 PM EDT) Pathologist [facility] Sodium 138 135 - 145 mmol/L [facility] Potassium 4.2 3.3 - 5.1 mmol/L [facility] Chloride 100 96 - 108 mmol/L [facility] Carbon Dioxide 27 22 - 29 mmol/L [facility] Anion Gap 15 12 - 20 [facility] Urea Nitrogen (BUN) 18(H) 9 - 16 mg/dL [facility] Creatinine, Serum 1.60(H) 0.5 - 1.4 mg/dL [facility] Estimated Glomerular Filt Rate 45 [facility] Comment:Chronic Kidney Disea se: Estimated GFR < 60 mL/min/[id number] Kidney Disease: Estimated GFR < 15 mL/min/1.73m2 Glucose 102 60 - 115 mg/dL [facility] Calcium 10.0 8.4 - 10.2 mg/dL [facility] 12/12/2024 2:21 PM EDT 12/12/2024 2:21 PM EDT us Generic External Data Provider LAB BLOOD ORDERAB LES Final Result [facility] [address], [place] [phone] * Cologuard?? colon cancer screening (09/20/2024 8:22 AM EDT) - Unsuccessful Attempt Pathologist [facility] Cologuard Result Sample Could Not Be Processed 9 N/A 09/20/2024 8:22 AM EDT [facility] (CLIA #:[id number]) Comment: The Cologuard (TM) test was assigned to this specimen. An empty collection kit was received in the laboratory. The patient will be contacted to initiate a new sample collection. Stool specimen (specimen) 09/19/2024 11:04 AM EDT Dinesh Engel MD LAB MOLECULAR DIAG NOSTICS ORDERABLES Final Result Performing Organization Address [facility] Co de Phone Number [facility] (CLIA #:[id number]) [address] [place] [address], * Hepatitis C Antibody with Reflex to HCV, RNA, Quantitative, Real-Time PCR (02/20/2024 4:04 PM EST) Hepatitis C Antibody Nonreactive Nonreactive [facility] Comment:Antibodies to HCV no t detected; does not exclude early acuteHCV infection. Blood Venous blood specimen / Unknown 02/20/2024 4:04 PM EST 02/20/2024 5:56 PM EST Dinesh Engel MD LAB BLOOD ORDERABL ES Final Result Performing Organization Address [facility] de Phone Number [facility] [address] [place] [phone] * HIV-1/2 Antigen and Antibodies, Fourth Generation, with Reflexes (02/20/2024 4:04 PM EST) HIV AB/AG Nonreactive Nonreactive [facility] Comment:HIV-1 p24 Ag and/or HIV-1/HIV-2 Ab not detected.A test result that is nonreactive does not exclude thepossibility of exposure to or infection with HIV-1 and/orHIV-2. Nonreactive results in this assay for individualswith prior exposure to HIV-1 and/or HIV-2 may be due toantigen and antibody levels that are below the limit ofdetection of this assay.The [employer] HIV Ag/Ab Combo assay result andsupplemental assay results should be interpreted inconjunction with the patient's clinical presentation,history and other laboratory results. If the results areinconsistent with clinical evidence, additional testing issuggested to confirm the result. Blood Venous blood specimen / Unknown 02/20/2024 4:04 PM EST 02/20/2024 5:56 PM EST Dinesh Engel MD LAB BLOOD ORDERABL ES Final Result Performing Organization Address [facility] de Phone Number [facility] [address] [place] [phone] * (ABNORMAL) Lipid Panel, Standard (02/20/2024 4:04 PM EST) Triglycerides 57 <150 mg/dL [facility] Comment:Desirable Triglyceri de: less than 150 mg/dLBorderline High Triglyceride 150-199 mg/dLHigh Triglyceride: 200-499 mg/dLVery High Triglyceride: greater than or equal to 5OO mg/dL Cholesterol 123 <200 mg/dL [facility] Comment:Desirable Cholestero l: less than 200 mg/dLBorderline High Cholesterol: 200-239 mg/dLHigh Cholesterol: greater than 239 mg/dL LDL Cholesterol Calculated 80 <100 mg/dL [facility] Comment:Desirable LDL: less than 100 mg/dLNear Optimal/Above Optimal LDL: 110- 129 mg/dLBorderline High LDL: 130-159 mg/dLHigh LDL: 160-189 mg/dLVery High LDL: greater than or equal to 190 mg/dL HDL Cholesterol 32(L) >40 mg/dL [facility] Comment:Desirable HDL: great er than 40 mg/dL Note: This HDL assay may give artificially low results in patients with liver disease. Blood Venous blood specimen / Unknown 02/20/2024 4:04 PM EST 02/20/2024 5:56 PM EST Dinesh Engel MD LAB BLOOD ORDERABL ES Final Result Performing Organization Address [facility] Co de Phone Number [facility] [address] [place] [phone] from Last 3 Months or Most Recently Relevant to Health Maintenance Insurance [facility] Care Teams Institutional Asset Manager Relationship Specialty Start Date End Date Dinesh Hernandez MD [address] [place] [phone] PCP - General Internal Medicine 01/23/24
[2024-12-24 09:45] VITALS: BMI 27.4
--- NOTE | 2024-12-24 11:01 | HO.ANESPROP2 ---
Documented by User: Gill Beyer NP 12/24/24 11:33 HPI - Anesthesia Eval Consult details Narrative: 54 yr old male for cardioversion On Eliquis for afib Cardiomyopathy: seen by [facility] cardiology 12/12/24, could be tachycardia driven, no active CHF; EF 25-30% H/O ETOH abuse: none recently per 12/12/24 cardiology note Anesthesia Pre-Procedure Meds Is the patient on any of the following meds?: SGLT2 Inhib PMFSH Active Problems Active Problems: All Active Problems (Updated 12/12/24 @ 13:54 by Gavin Akers MD) Excessive drinking alcohol (Acute) Persistent atrial fibrillation (Acute) Hypertension (Acute) Cardiomyopathy (Acute) Atrial fibrillation with rapid ventricular response (Acute) Past Medical History Medical History Tremors of nervous system Seizure Cardiomyopathy Atrial fibrillation with rapid ventricular response Excessive drinking alcohol Alcohol abuse Congestive heart failure Family History Family History Father No problems noted. Mother No problems noted. Surgical History Surgical History [place] teeth removed Social History Social History Alcohol intake: current Alcohol intake frequency: a few times a week Comment: 6 pack/one day/week Patient Tobacco Use Status: Never used Tobacco Use of substances other than those prescribed or required for medical reasons: No Are you DNR?: No Advance Directives: No Advance Directives Information Provided: Yes Poor oral hygiene: No service: No Meds Allergies Allergy/AdvReac Type Severity Reaction Status Date / Time No Known Allergies Allergy Verified 07/16/24 14:10 Home Medications ?Medication ?Instructions ?Recorded ?Confirmed ?Last Taken ?Type clonazepam 0.5 mg tablet 0.5 mg PO BEDTIME 05/29/24 12/26/24 Unknown History furosemide 40 mg tablet 40 mg PO DAILY 05/29/24 12/26/24 05/19/24 History metoprolol succinate 100 mg 100 mg PO DAILY 09/18/24 12/26/24 12/26/24 History tablet,extended release 24 hr Entresto BID 12/26/24 Unknown History nifedipine 30 mg tablet,extended 30 mg PO DAILY 12/26/24 12/26/24 Unknown History release 24 hr Exam Height,Weight and Vital Signs: Height 6 ft Weight 91.626 kg Pertinent Lab Results Pertinent Lab Results: Laboratory Tests 07/16/24 12/12/24 14:39 14:21 WBC 6.7 RBC 5.29 Hgb 16.1 Hct 47.1 Plt Count 150 L Sodium 138 Potassium 4.2 BUN 18 H Creatinine 1.60 H Narrative Narrative: ECHO 12/06/24 Conclusions: - The left ventricular systolic function is severely decreased. The visually estimated ejection fraction is between 25-30%. - No obvious valvular pathology seen on this study. EKG 09/2024 Atrial fibrillation, rate 89 Documented by User: Adolfo Eid MD 12/26/24 14:24 [facility] Past Medical History Medical History Tremors of nervous system Seizure Cardiomyopathy Atrial fibrillation with rapid ventricular response Excessive drinking alcohol Alcohol abuse Congestive heart failure Functional capacity: independent ambulation Family History Family History Father No problems noted. Mother No problems noted. Family history of problems with anesthesia: No Surgical History Surgical History [place] teeth removed History of Problems with Anesthesia: No Social History Social History Alcohol intake: current Alcohol intake frequency: a few times a week Comment: 6 pack/one day/week Patient Tobacco Use Status: Never used Tobacco Use of substances other than those prescribed or required for medical reasons: No Are you DNR?: No Advance Directives: No Advance Directives Information Provided: Yes Poor oral hygiene: No service: No Meds Allergies Allergy/AdvReac Type Severity Reaction Status Date / Time No Known Allergies Allergy Verified 07/16/24 14:10 Home Medications ?Medication ?Instructions ?Recorded ?Confirmed ?Last Taken ?Type clonazepam 0.5 mg tablet 0.5 mg PO BEDTIME 05/29/24 12/26/24 Unknown History furosemide 40 mg tablet 40 mg PO DAILY 05/29/24 12/26/24 05/19/24 History metoprolol succinate 100 mg 100 mg PO DAILY 09/18/24 12/26/24 12/26/24 History tablet,extended release 24 hr Entresto BID 12/26/24 Unknown History nifedipine 30 mg tablet,extended 30 mg PO DAILY 12/26/24 12/26/24 Unknown History release 24 hr Exam Exam Date and Time: 12/26/2024 Airway TM Dist: >3cm Neck ROM: Full Loose/Missing/Broken Teeth: Yes (3 missing tooth) Heart: rrr Lungs: cta Other: normal Assessment and Plan Assessment Anesthesia Assessment: Anesthesia Plan Discussed Final Anesthetic Review Family History of Problems with Anesthesia: No History of Problems with Anesthesia: No NPO: Yes ASA Class: III Final Preanesthetic Review: No Changes in Pt Med Stat, Meds/Allgs Chart Reviewed, Consent Obtained/Reviewed and Anes Risks/Benef Reviewed Patient Risk: Intermediate Procedure Risk: Intermediate Assessment/Block/Sedation in SS: Assess/Block/Sedation- Anesthetic Plan Anesthetic Plan: GA Disposition: Standard PACU
[2024-12-26] VITALS (7 sets, daily range): BP systolic 100–132; BP diastolic 61–88; PULSE 59–89; RESP 16–18; TEMP 36.3–36.9; O2SAT 94–99; BMI 28.4
[2024-12-26] MEDS: Lactated Ringers 1,000 ML 50 ML IVCONT (13:11)
--- NOTE | 2024-12-26 14:25 | HO.ANESPROP2 ---
HPI - Anesthesia Eval Anesthesia Pre-Procedure Meds If yes to any meds - educate patient: Pt education - increased risk of aspiration and/or euvolemic DKA and Pt education - possibility of cancelled proc at provider's discretion PMFSH Active Problems Active Problems: All Active Problems (Updated 12/26/24 @ 12:51 by Amanda Wilkerson RN) Persistent atrial fibrillation (Acute) Hypertension (Acute) Excessive drinking alcohol (Acute) Cardiomyopathy (Acute) Atrial fibrillation with rapid ventricular response (Acute) Past Medical History Medical History Tremors of nervous system Seizure Cardiomyopathy Atrial fibrillation with rapid ventricular response Excessive drinking alcohol Alcohol abuse Congestive heart failure Functional capacity: independent ambulation Family History Family History Father No problems noted. Mother No problems noted. Family history of problems with anesthesia: No Surgical History Surgical History [place] teeth removed History of Problems with Anesthesia: No Social History Social History Alcohol intake: current Alcohol intake frequency: a few times a week Comment: 6 pack/one day/week Patient Tobacco Use Status: Never used Tobacco Use of substances other than those prescribed or required for medical reasons: No Are you DNR?: No Advance Directives: No Advance Directives Information Provided: Yes Poor oral hygiene: No service: No Meds Allergies Allergy/AdvReac Type Severity Reaction Status Date / Time No Known Allergies Allergy Verified 07/16/24 14:10 Active Medications: Current Medications Lactated Ringer's (Lr) 1,000 mls @ 50 mls/hr IVCONT .Q20H FLAQUITO Last Admin: 12/26/24 13:11 Dose: 50 mls/hr Home Medications ?Medication ?Instructions ?Recorded ?Confirmed ?Last Taken ?Type clonazepam 0.5 mg tablet 0.5 mg PO BEDTIME 05/29/24 12/26/24 Unknown History furosemide 40 mg tablet 40 mg PO DAILY 05/29/24 12/26/24 05/19/24 History metoprolol succinate 100 mg 100 mg PO DAILY 09/18/24 12/26/24 12/26/24 History tablet,extended release 24 hr Entresto BID 12/26/24 Unknown History nifedipine 30 mg tablet,extended 30 mg PO DAILY 12/26/24 12/26/24 Unknown History release 24 hr Exam Height,Weight and Vital Signs: Height 6 ft Weight 95.1 kg Last Vital Signs Temp 98.5 F 12/26/24 12:58 Pulse 89 12/26/24 12:58 Resp 16 12/26/24 12:58 BP 131/85 12/26/24 12:58 Pulse Ox 97 12/26/24 12:58 O2 Del Method Room Air 12/26/24 12:58 Assessment and Plan Final Anesthetic Review Family History of Problems with Anesthesia: No History of Problems with Anesthesia: No
--- NOTE | 2024-12-26 14:39 | MHC.SHP ---
Pre-Procedural Eval Section A - 24 Hr Update-Section A only Date of Service: 12/26/24 The patient is an INPATIENT: No The patient has been examined within 24 hours of the surgical procedure. The History & Physical has been completed within 30 days and I have reviewed it.: Yes Section B - Complete if H&P > 30 days Chief Complaint: Paroxysmal atrial fibrillation Allergies: Allergies Allergy/AdvReac Type Severity Reaction Status Date / Time No Known Allergies Allergy Verified 07/16/24 14:10 Plan I have reviewed the history and physical and performed a pertinent physical examination on my patient. No changes have occurred unless specified. Time Spent With Patient Time: Total time managing care of this patient today ____ minutes.
--- NOTE | 2024-12-26 14:39 | HO.CARDIVERS ---
Cardioversion Procedure Note Cardioversion Date of Procedure: 12/26/2024 Pre-Op Diagnosis: Atrial fibrillation Post-Op Diagnosis: Sinus rhythm Consent: Informed consent obtained. Procedure: After informed consent was obtained, patient was taken to the PACU. The patient was then positioned appropriately. The cardioversion pads were placed in anteroposterior position. Once under anesthesia, 120 joules of synchronized shock was administered. The rhythm converted from atrial fibrillation to sinus rhythm. Patient remained in sinus rhythm after the end of procedure. Complications: None. Impression: Successful cardioversion from atrial fibrillation to sinus rhythm. Recommendations: Start amiodarone. Follow up in clinic.
--- NOTE | 2024-12-26 14:51 | ECG_ITS ---
Test Reason : POST CARDIOVERSION Blood Pressure : */* mmHG Vent. Rate : 59 BPM Atrial Rate : 59 BPM P-R Int : 156 ms QRS Dur : 96 ms QT Int : 406 ms P-R-T Axes : 44 -5 17 degrees QTcB Int : 401 ms Sinus bradycardia Minimal voltage criteria for LVH, may be normal variant ( R in aVL ) Borderline ECG When compared with ECG of 16-Jul-2024 14:11, Sinus rhythm has replaced Atrial fibrillation Vent. rate has decreased by 84 bpm Questionable change in QRS axis Referred By: Karla Wong Electronically Signed By: KARLA WONG
--- NOTE | 2024-12-26 16:22 | PC.NURSE ---
PATIENT STATED NO CARAMEL CUTTER HELPER.
--- NOTE | 2024-12-26 17:32 | PC.NURSE ---
patient was recalled at this time with an educational sign language interpreter, Jovani, to make sure patient understood his discharge instructions. pt speaks good kinyarwanda, but everything was gone over again with an educational sign language interpreter/ patient once again stated he understood and would call his surgeon with any questions, concerns.
== END 2024-12-26 16:21 | disposition home or self-care (01) ==
PROVIDERS: PCP Internal Medicine; Visit Provider Internal Medicine
PROC: 5A2204Z Restoration of Cardiac Rhythm, Single (ICD-10-PCS; principal; 2024-12-26 14:30)
DX: I48.19 Other persistent atrial fibrillation (principal); I42.9 Cardiomyopathy, unspecified; F10.10 Alcohol abuse, uncomplicated; Z79.01 Long term (current) use of anticoagulants; Z79.899 Other long term (current) drug therapy
CPT/HCPCS: 92960; 93005; J2003; J2371; J2704

== ENCOUNTER → 2024-12-26 12:09 | Outpatient (BNV) | payer OTHER, SELFPAY | PROVIDERS: PCP Internal Medicine; Visit Provider Internal Medicine | DX: I48.91 Unspecified atrial fibrillation (principal) | CPT/HCPCS: 92960 ==

== ENCOUNTER → 2024-12-26 14:51 | Outpatient (BNV) | payer OTHER, SELFPAY | PROVIDERS: PCP Internal Medicine; Visit Provider Internal Medicine | DX: R00.1 Bradycardia, unspecified (principal) | CPT/HCPCS: 93010 ==